=== PATIENT | female | born 1950 | race Caucasian/White ===

== ENCOUNTER 2020-01-07 15:36 | Outpatient (REF) | payer MEDICARE, SELFPAY ==
[2020-01-07 16:37] LABS: C Reactive Protein 4.24 mg/dL (< or = 0.50)
[2020-01-07 17:17] LABS: Erythrocyte Sedimentation Rate 55 MM/HR (0-20)
[2020-01-09 15:06] LABS: Prot Elec - Albumin 3.6 g/dL (3.8-4.8); Prot Elec - Alpha1 0.4 g/dL (0.2-0.3); Prot Elec - Alpha2 0.8 g/dL (0.5-0.9); Prot Elec - Beta 1 0.5 g/dL (0.4-0.6); Prot Elec - Beta 2 0.5 g/dL (0.2-0.5); Prot Elec - Gamma 1.3 g/dL (0.8-1.7)
[2020-01-10 07:22] LABS: IgA 310 mg/dL (70-320); IgG 1341 mg/dL (600-1540); IgM 169 mg/dL (50-300)
== END 2020-01-07 15:37 | disposition home or self-care (01) ==
LOC: HO.LAB 15:36
PROVIDERS: PCP Internal Medicine; Visit Provider Student in an Organized Health Care Education/Training Program
DX: M35.3 Polymyalgia rheumatica (principal); M81.0 Age-related osteoporosis without current pathological fracture; Z79.52 Long term (current) use of systemic steroids
CPT/HCPCS: 36415; 82784; 84155; 84165; 85652; 86140; 86334; 86335

== ENCOUNTER → 2020-01-10 08:13 | Outpatient (BNVA) | payer MEDICARE, SELFPAY | PROVIDERS: PCP Internal Medicine; Referring Provider Internal Medicine; Visit Provider Student in an Organized Health Care Education/Training Program | DX: M35.3 Polymyalgia rheumatica (principal); R79.82 Elevated C-reactive protein (CRP); M81.0 Age-related osteoporosis without current pathological fracture; Z79.52 Long term (current) use of systemic steroids; Z79.899 Other long term (current) drug therapy | CPT/HCPCS: 99212 ==

== ENCOUNTER 2020-02-03 15:07 | Outpatient (REF) | payer MEDICARE, SELFPAY ==
[2020-02-03 16:31] LABS: C Reactive Protein 5.56 mg/dL (< or = 0.50)
[2020-02-03 17:17] LABS: Erythrocyte Sedimentation Rate 52 MM/HR (0-20)
== END 2020-02-03 15:08 | disposition home or self-care (01) ==
LOC: HO.LAB 15:07
PROVIDERS: PCP Internal Medicine; Visit Provider Student in an Organized Health Care Education/Training Program
DX: M35.3 Polymyalgia rheumatica (principal)
CPT/HCPCS: 36415; 85652; 86140

== ENCOUNTER 2020-03-03 10:31 | Outpatient (REF) | payer MEDICARE, SELFPAY ==
[2020-03-03 12:18] LABS: C Reactive Protein 5.47 mg/dL (< or = 0.50)
[2020-03-03 13:32] LABS: Erythrocyte Sedimentation Rate 60 MM/HR (0-20)
== END 2020-03-03 10:32 | disposition home or self-care (01) ==
LOC: HO.LAB 10:31
PROVIDERS: PCP Internal Medicine; Visit Provider Student in an Organized Health Care Education/Training Program
DX: M35.3 Polymyalgia rheumatica (principal)
CPT/HCPCS: 36415; 85652; 86140

== ENCOUNTER → 2020-03-10 10:24 | Outpatient (BNVA) | payer MEDICARE, SELFPAY | PROVIDERS: PCP Internal Medicine; Referring Provider Internal Medicine; Visit Provider Student in an Organized Health Care Education/Training Program | DX: Z13.89 Encounter for screening for other disorder (principal) | CPT/HCPCS: Q3014 ==

== ENCOUNTER 2020-04-10 10:49 | Outpatient (REF) | payer MEDICARE, SELFPAY ==
[2020-04-10 11:40] LABS: MANUAL DIFF FLAG NO
[2020-04-10 11:44] LABS: Basophils Absolute Auto 0.1 X10*3/uL (0.0-0.2); Basophils Percent Auto 0.5 % (0-2); Eosinophils Absolute Auto 0.2 X10*3/uL (0.0-0.4); Eosinophils Percent Auto 1.9 % (0-4); Hematocrit 36.8 % (37-47); Hemoglobin 11.3 g/dl (12.0-16.0); Imm Gran Abs Auto 0.02 X10*3/uL (0.00-0.03); Imm Gran Pct Auto 0.2 % (0.0-0.4); Lymphocytes Absolute Auto 2.5 X10*3/uL (1.2-4.9); Lymphocytes Percent Auto 23.7 % (20-40); Mean Corpuscular HGB Conc 30.7 g/dl (31.0-35.0); Mean Corpuscular Hemoglobin 24.5 pg (27.0-33.0); Mean Corpuscular Volume 79.8 fL (80-98); Mean Platelet Volume 9.3 fL (9.4-12.3); Monocytes Absolute Auto 0.7 X10*3/uL (0.1-1.2); Monocytes Percent Auto 6.5 % (2-11); Neutrophils Percent Auto 67.2 % (45-73); Platelet Count 423 X10*3/uL (160-400); Red Blood Count 4.61 X10*6/uL (4.20-5.50); Red Cell Distribution Width 14.2 % (11.0-16.0); White Blood Count 10.4 X10*3/uL (4.8-10.8)
[2020-04-10 12:21] LABS: Erythrocyte Sedimentation Rate 58 MM/HR (0-20)
[2020-04-10 12:24] LABS: Alanine Aminotransferase 10 U/L (0-31); Albumin Level 3.9 g/dL (3.5-5.0); Alkaline Phosphatase 97 U/L (39-117); Anion Gap 14 (12-20); Aspartate Amino Transferase 11 U/L (5-31); Bilirubin Total 0.4 mg/dL (0.0-1.0); Blood Urea Nitrogen 13 mg/dL (9-16); C Reactive Protein 4.94 mg/dL (< or = 0.50); Calcium 8.8 mg/dL (8.4-10.2); Carbon Dioxide 25 mmol/L (22-29); Chloride 103 mmol/L (96-108); Estimated Glomerular Filt Rate > 60; Glucose Random 94 mg/dL (60-115); Potassium 4.2 mmol/L (3.3-5.1); Sodium 138 mmol/L (135-145); Total Protein 7.3 g/dL (6.5-8.0)
== END 2020-04-10 10:50 | disposition home or self-care (01) ==
LOC: HO.LAB 10:49
PROVIDERS: PCP Internal Medicine; Visit Provider Student in an Organized Health Care Education/Training Program
DX: M35.3 Polymyalgia rheumatica (principal)
CPT/HCPCS: 36415; 80053; 85025; 85652; 86140

== ENCOUNTER → 2020-04-30 09:40 | Outpatient (BNVA) | payer MEDICARE, SELFPAY | PROVIDERS: PCP Internal Medicine; Visit Provider Student in an Organized Health Care Education/Training Program | DX: M35.3 Polymyalgia rheumatica (principal); M81.0 Age-related osteoporosis without current pathological fracture; Z79.52 Long term (current) use of systemic steroids; R79.82 Elevated C-reactive protein (CRP) | CPT/HCPCS: 99212 ==

== ENCOUNTER → 2020-05-01 12:55 | Outpatient (REF) | payer MEDICARE, SELFPAY ==
--- NOTE | 2020-05-01 12:58 | ECG_ITS ---
Hook-up date: 2020-05-01 13:11:00 Duration: 47:59:00 Test Indications: PALPITATIONS Medications: 923896 QRS complexes 206 Ventricular ectopics which represent <1 % of total QRS comp. 4 Supraventricular ectopics which represent <1 % of total QRS comp. * Paced QRS complexs which represent % of total QRS comp. VENTRICULAR ECTOPY 206 Isolated 0 Bigeminal Cycles 0 Couplets 0 Runs 0 Beats in Runs * Beats LONGEST at * BPM at :: -- * Beats FASTEST at * BPM at :: -- SUPRAVENTRICULAR ECTOPY 1 Isolated 0 Couplets 1 Runs 3 Beats in Runs 3 Beats LONGEST at 166 BPM at 14:05:29 2020-05-02 3 Beats FASTEST at 166 BPM at 14:05:29 2020-05-02 HEART RATES 62 MIN at 22:04:35 2020-05-02 82 AVG 125 MAX at 14:36:36 2020-05-02 LONGEST RR 1.2560 secs at 10:52:13 2020-05-02 S-T LEVELS Channel 1 - 128 mm at 13:11:00 2020-05-01 - 128 mm at 13:11:00 2020-05-01 Channel 2 - 128 mm at 13:11:00 2020-05-01 - 128 mm at 13:11:00 2020-05-01 Channel 3 - 128 mm at 03:23:01 -- - 128 mm at 03:23:01 Basic rhythm Normal sinus rhythm No long pause or profound bradycardia Occasional Premature ventricular complexes Patient reported one episode of palpitations about 10 minutes after isolated PVC Referred By: Nahomy Haney Overread By: LAM ESQUIVEL MD
== END ==
LOC: HO.CARD 12:55
PROVIDERS: PCP Internal Medicine; Visit Provider Internal Medicine
DX: R00.2 Palpitations (principal)
CPT/HCPCS: 93225; 93226

== ENCOUNTER 2020-06-16 10:16 | Outpatient (REF) | payer MEDICARE, SELFPAY ==
[2020-06-16 11:29] LABS: TSH reflex Free T4 0.42 uIU/mL (0.32-4.0)
[2020-06-16 11:58] LABS: Erythrocyte Sedimentation Rate 60 MM/HR (0-20)
== END 2020-06-16 10:17 | disposition home or self-care (01) ==
LOC: HO.LAB 10:16
PROVIDERS: PCP Internal Medicine; Visit Provider Student in an Organized Health Care Education/Training Program
DX: M35.3 Polymyalgia rheumatica (principal); E03.9 Hypothyroidism, unspecified
CPT/HCPCS: 36415; 84443; 85652; 86140

== ENCOUNTER → 2020-07-01 09:29 | Outpatient (BNVA) | payer MEDICARE, SELFPAY | PROVIDERS: PCP Internal Medicine; Visit Provider Student in an Organized Health Care Education/Training Program | DX: M35.3 Polymyalgia rheumatica (principal); M81.0 Age-related osteoporosis without current pathological fracture; Z79.52 Long term (current) use of systemic steroids | CPT/HCPCS: 99212 ==

== ENCOUNTER 2020-08-19 07:31 | Outpatient (REF) | payer MEDICARE, SELFPAY ==
[2020-08-19 09:04] LABS: C Reactive Protein 4.39 mg/dL (< or = 0.50)
[2020-08-19 09:33] LABS: Erythrocyte Sedimentation Rate 54 MM/HR (0-20)
== END 2020-08-19 07:32 | disposition home or self-care (01) ==
LOC: HO.LAB 07:31
PROVIDERS: PCP Internal Medicine; Visit Provider Student in an Organized Health Care Education/Training Program
DX: M35.3 Polymyalgia rheumatica (principal); M31.6 Other giant cell arteritis; M81.0 Age-related osteoporosis without current pathological fracture; Z79.52 Long term (current) use of systemic steroids; Z79.899 Other long term (current) drug therapy
CPT/HCPCS: 36415; 85652; 86140; 99212

== ENCOUNTER 2020-08-22 07:50 | Outpatient (REF) | payer MEDICARE, SELFPAY ==
[2020-08-24 03:37] LABS: HBc Num1 0.09 S/CO (0.00-0.79); HBsAGNum1 0.14 S/CO (0.00-0.99); Hepatitis B Core Antibody Nonreactive (Nonreactive); Hepatitis B Surface Antigen Negative (Negative); ~HepC Num1 0.25 S/CO (0.00-0.79); ~Hepatitis C Antibody Nonreactive (Nonreactive)
[2020-08-24 03:50] LABS: HBS Num1 0.47 mIU/mL (0-7.99); ~Hepatitis B Surface Antibody NONREACTIVE (Nonreactive)
[2020-08-26 07:24] LABS: Hepatitis A Antibody IgM 0.23 Index (0-0.79); ~Hepatitis A Antibody IgM Nonreactive (Nonreactive)
== END 2020-08-22 07:51 | disposition home or self-care (01) ==
LOC: HO.LAB 07:50
PROVIDERS: PCP Internal Medicine; Visit Provider Student in an Organized Health Care Education/Training Program
DX: Z01.84 Encounter for antibody response examination (principal); M31.6 Other giant cell arteritis
CPT/HCPCS: 36415; 86704; 86706; 86709; 86803; 87340

== ENCOUNTER 2020-08-24 08:01 | Outpatient (REF) | payer MEDICARE, SELFPAY ==
[2020-08-26 21:12] LABS: TS Negative Control Passed; TS Panel A 0; TS Panel B 1; TS Positive Control Passed; TSpotTB Negative (SeeBelow)
== END 2020-08-24 08:02 | disposition home or self-care (01) ==
LOC: HO.LAB 08:01
PROVIDERS: PCP Internal Medicine; Visit Provider Student in an Organized Health Care Education/Training Program
DX: M31.6 Other giant cell arteritis (principal); Z11.1 Encounter for screening for respiratory tuberculosis
CPT/HCPCS: 36415; 86481

== ENCOUNTER 2020-08-28 08:32 | Outpatient (REF) | payer MEDICARE, SELFPAY ==
--- NOTE | ~2020-08-28 | US_ITS ---
EXAMINATION: US SOFT TISSUE NECK CLINICAL INFORMATION: Yuval cell arteritis. COMPARISON: None TECHNIQUE: Ultrasound of the bilateral temporal arteries performed with high- frequency lira-scale imaging and color Doppler. FINDINGS: The temporal arteries appear normal in caliber. No focal narrowing or halo sign is seen. US/US soft tiss head and/or neck IMPRESSION: Normal-appearing temporal arteries.
== END 2020-08-28 08:33 | disposition home or self-care (01) ==
LOC: HO.HMGCX 08:32
PROVIDERS: PCP Internal Medicine; Visit Provider Student in an Organized Health Care Education/Training Program
DX: M31.6 Other giant cell arteritis (principal)
CPT/HCPCS: 76536

== ENCOUNTER 2020-09-02 13:23 | Outpatient (REF) | payer MEDICARE, SELFPAY ==
[2020-09-02 14:46] LABS: C Reactive Protein 0.45 mg/dL (< or = 0.50)
[2020-09-02 15:25] LABS: Erythrocyte Sedimentation Rate 13 MM/HR (0-20)
== END 2020-09-02 13:24 | disposition home or self-care (01) ==
LOC: HO.LAB 13:23
PROVIDERS: PCP Internal Medicine; Visit Provider Student in an Organized Health Care Education/Training Program
DX: M31.6 Other giant cell arteritis (principal); M35.3 Polymyalgia rheumatica; M81.0 Age-related osteoporosis without current pathological fracture; Z79.52 Long term (current) use of systemic steroids
CPT/HCPCS: 36415; 85652; 86140; 99212

== ENCOUNTER 2020-09-16 06:32 | Outpatient (REF) | payer MEDICARE, SELFPAY ==
[2020-09-16 08:08] LABS: Erythrocyte Sedimentation Rate 7 MM/HR (0-20)
== END 2020-09-16 06:33 | disposition home or self-care (01) ==
LOC: HO.LAB 06:32
PROVIDERS: PCP Internal Medicine; Visit Provider Student in an Organized Health Care Education/Training Program
DX: M31.6 Other giant cell arteritis (principal)
CPT/HCPCS: 36415; 85652; 86140

== ENCOUNTER → 2020-09-18 11:22 | Outpatient (BNVA) | payer MEDICARE, SELFPAY | PROVIDERS: PCP Internal Medicine; Visit Provider Student in an Organized Health Care Education/Training Program | DX: M31.6 Other giant cell arteritis (principal); M35.3 Polymyalgia rheumatica; M81.0 Age-related osteoporosis without current pathological fracture; Z79.52 Long term (current) use of systemic steroids | CPT/HCPCS: 99212 ==

== ENCOUNTER 2020-10-13 14:08 | Outpatient (REF) | payer MEDICARE, SELFPAY ==
[2020-10-13 14:48] LABS: MANUAL DIFF FLAG NO
[2020-10-13 14:52] LABS: Basophils Percent Auto 0.1 % (0-2); Hemoglobin 13.1 g/dl (12.0-16.0); Imm Gran Abs Auto 0.04 X10*3/uL (0.00-0.03); Imm Gran Pct Auto 0.5 % (0.0-0.4); Lymphocytes Absolute Auto 1.8 X10*3/uL (1.2-4.9); Lymphocytes Percent Auto 22.3 % (20-40); Mean Corpuscular Hemoglobin 25.8 pg (27.0-33.0); Mean Corpuscular Volume 80.7 fL (80-98); Mean Platelet Volume 9.7 fL (9.4-12.3); Monocytes Absolute Auto 0.2 X10*3/uL (0.1-1.2); Monocytes Percent Auto 2.4 % (2-11); Neutrophils Percent Auto 74.7 % (45-73); Platelet Count 240 X10*3/uL (160-400); Red Blood Count 5.08 X10*6/uL (4.20-5.50); Red Cell Distribution Width 19.8 % (11.0-16.0); White Blood Count 8.1 X10*3/uL (4.8-10.8)
[2020-10-13 15:35] LABS: Erythrocyte Sedimentation Rate 2 MM/HR (0-20)
[2020-10-13 15:46] LABS: Alanine Aminotransferase 18 U/L (0-31); Alkaline Phosphatase 59 U/L (39-117); Anion Gap 15 (12-20); Aspartate Amino Transferase 14 U/L (5-31); Bilirubin Total 0.3 mg/dL (0.0-1.0); Blood Urea Nitrogen 15 mg/dL (9-16); C Reactive Protein 0.05 mg/dL (< or = 0.50); Calcium 9.1 mg/dL (8.4-10.2); Carbon Dioxide 26 mmol/L (22-29); Chloride 99 mmol/L (96-108); Cholesterol 289 mg/dL; Estimated Glomerular Filt Rate > 60; Glucose Random 107 mg/dL (60-115); HDL Cholesterol 136 mg/dL; LDL Cholesterol Calculated 134 mg/dl; Potassium 4.7 mmol/L (3.3-5.1); Sodium 135 mmol/L (135-145); Total Protein 6.6 g/dL (6.5-8.0); Triglycerides 96 mg/dL
[2020-10-13 17:44] LABS: Reflex LDLD? No
== END 2020-10-13 14:09 | disposition home or self-care (01) ==
LOC: HO.LAB 14:08
PROVIDERS: PCP Internal Medicine; Visit Provider Student in an Organized Health Care Education/Training Program
DX: M31.6 Other giant cell arteritis (principal)
CPT/HCPCS: 36415; 80053; 80061; 85025; 85652; 86140

== ENCOUNTER → 2020-10-15 15:46 | Outpatient (BNVA) | payer MEDICARE, SELFPAY | PROVIDERS: PCP Internal Medicine; Visit Provider Student in an Organized Health Care Education/Training Program | DX: M31.6 Other giant cell arteritis (principal); M35.3 Polymyalgia rheumatica; M81.0 Age-related osteoporosis without current pathological fracture; Z79.52 Long term (current) use of systemic steroids | CPT/HCPCS: 99212 ==

== ENCOUNTER 2021-02-16 12:43 | Outpatient (REF) | payer MEDICARE, SELFPAY ==
--- NOTE | ~2021-02-16 | MM_ITS ---
EXAMINATION: BONE DENSITOMETRY CLINICAL INDICATION: Age-related osteoporosis without current pathological fracture. COMPARISON: Previous BD dated 02/21/2019 and baseline BD dated 07/20/2006. TECHNIQUE: Using a zanda DXA System (software version: 13.1) manufactured by [employer], dual-energy x-ray absorptiometry was performed of the lumbar spine and left hip. The images are of good technical quality. Summary results are attached. FINDINGS: AP SPINE L1-L4: Current: BMD 0.744 g/cm2, Z-score -2.0, T-score -3.6, osteoporosis, 1.9% increase from previous, 17.1% decrease from baseline (<5% change is not significant). Prior: BMD 0.730 g/cm2. Baseline: BMD 0.898 g/cm2. LEFT FEMUR, NECK: Current: BMD 0.633 g/cm2, Z-score -1.2, T-score -2.9, osteoporosis. Prior: BMD 0.642 g/cm2. Baseline: BMD 0.795 g/cm2. LEFT FEMUR, TOTAL: Current: BMD 0.641 g/cm2, Z-score -1.4, T-score -2.9, osteoporosis, 0.9% increase from previous, 9.1% decrease from baseline (<5% change is not significant). Prior: BMD 0.635 g/cm2. Baseline: BMD 0.705 g/cm2. IDENTIFIED RISK FACTORS: Osteoporosis, family history (parental hip fracture), history of fracture (adult). Early menopause, secondary osteoporosis, glucocorticoids (chronic), hysterectomy, bilateral oophorectomy. HISTORY OF FRACTURE: Femur/hip. MEDICATIONS: Calcium supplements or multivitamin, vitamin D. MM/XR DEXA axial skeleton IMPRESSION: 1. DIAGNOSIS: Severe osteoporosis based on the lowest T-score value of -3.6 in the lumbar spine fracture history applying World Health Organization criteria. 2. 10-YEAR FRACTURE RISK PREDICTION, FRAX: Major osteoporotic fracture (clinical spine, forearm, hip or shoulder) 62.8%. Hip fracture 44.7%. 3. Treatment Recommendations: NOF guidelines recommend consideration for treatment in postmenopausal women and men age 50 and older presenting with the following: -A hip or vertebral (clinical or morphometric) fracture. -T-score less than or equal to -2.5 at the femoral neck or spine after appropriate evaluation to exclude secondary causes. -Low bone mass at the hip or spine and a 10-year fracture probability by FRAX of greater than or equal to 3% for hip fracture or greater than or equal to 20% for major osteoporotic fracture based on the [place] adapted WHO algorithm. 4. Other Recommendations: All treatment decisions require clinical judgment and consideration of individual patient factors, including patient preferences, comorbidities, previous drug use, risk factors not captured in the FRAX model (e.g. frailty, falls, vitamin D deficiency, increased bone turnover, interval significant decline in bone density) and possible under or overestimation of fracture risk by FRAX. Additional medical evaluation for secondary cause of low bone mineral density may be appropriate. FUTURE SCAN RECOMMENDATION: People with diagnosed cases of osteoporosis or at high risk for fracture should have regular bone mineral density tests. For patients eligible for Medicare, routine testing is allowed once every 2 years. The testing frequency can be increased to one year for patients who have rapidly progressing disease, those who are receiving or discontinuing medical therapy to restore bone mass, or have additional risk factors.
--- NOTE | ~2021-02-16 | MM_ITS ---
EXAMINATION: MM SCREENING DIGITAL BREAST TOMOSYNTHESIS, BILATERAL CLINICAL INFORMATION: Screening. Asymptomatic. The lifetime risk of breast cancer based on the Tyrer-Cuzick Model is 3.7%. COMPARISON: Mammography: 02/21/2019 and studies dating back to 12/20/2011. TECHNIQUE: Digital breast tomosynthesis is performed in both the craniocaudal and mediolateral oblique views along with computer-aided detection (CAD). Synthesized 2D images are generated from the tomosynthesis. Additional right side exaggerated craniocaudal view performed. FINDINGS: There are scattered areas of fibroglandular density (ACR BI-RADS breast composition Category b). There is a stable parenchymal pattern within the left breast with no new abnormal dominant mass or suspicious grouping of microcalcifications. Within the upper outer aspect of the right breast approximately 4 cm from the nipple there is a region of ill-defined density with question of calcifications for which spot magnification films are recommended in craniocaudal and 90 degree mediolateral views. MM/MM tomosynthesis screening BI IMPRESSION: Right breast asymmetric density upper outer aspect for further evaluation as described. ASSESSMENT: BI-RADS BI-RADS 0. RECOMMENDATION: 1. Additional views of the right breast. 2. Targeted ultrasound if warranted after review of the additional views. 3. Radiology department staff will contact the patient for additional imaging. This patient's information was entered into a reminder system with a target due date for their next mammogram.
== END 2021-02-16 12:44 | disposition home or self-care (01) ==
LOC: HO.MAMMO 12:43
PROVIDERS: Visit Provider Internal Medicine
DX: Z12.31 Encounter for screening mammogram for malignant neoplasm of breast (principal); Z13.820 Encounter for screening for osteoporosis; M81.0 Age-related osteoporosis without current pathological fracture; Z78.0 Asymptomatic menopausal state; Z79.899 Other long term (current) drug therapy
CPT/HCPCS: 77063; 77067; 77080

== ENCOUNTER 2021-02-19 07:57 | Outpatient (REF) | payer MEDICARE, SELFPAY ==
--- NOTE | ~2021-02-19 | MM_ITS ---
EXAMINATION: MM DIAGNOSTIC DIGITAL BREAST TOMOSYNTHESIS, RIGHT TARGETED RIGHT BREAST ULTRASOUND CLINICAL INFORMATION: Asymmetric density with indistinct margins and question microcalcifications. COMPARISON: Mammography: 02/16/2021 and studies dating back to 01/06/2014 TECHNIQUE: Digital breast tomosynthesis is performed. 2D images are generated from the tomosynthesis. The following views are obtained: Spot magnification views in craniocaudal and 90 degree mediolateral views. TARGETED RIGHT BREAST ULTRASOUND: FINDINGS: The breasts are heterogeneously dense, which may obscure small masses (ACR BI-RADS breast composition Category c). The spot magnification views compress out the dense tissue to some degree but with some residual dense parenchyma, but with similar appearance to previous studies. No associated microcalcifications are appreciated. Targeted ultrasound evaluation to the upper outer aspect of the right breast did not demonstrate any abnormal cystic or solid masses. No region of abnormal distal sound shadowing appreciated. Results are discussed with the patient at time of visit. MM/MM tomosynthesis added views R IMPRESSION: No specific mammographic or ultrasound findings to suggest malignancy. ASSESSMENT: BI-RADS 1: Negative RECOMMENDATION: Routine annual mammography screening. This patient's information was entered into a reminder system with a target due date for their next mammogram.
--- NOTE | ~2021-02-19 | US_ITS ---
EXAMINATION: US DIAGNOSTIC ULTRASOUND BREAST, RIGHT CLINICAL INFORMATION: Dense tissue with question irregular margins upper outer aspect of the right breast.. COMPARISON: Mammography of same day and studies dating back to January 06, 2014. TECHNIQUE: Ultrasound of the breast is performed with real-time lira scale imaging and color Doppler. FINDINGS: Targeted ultrasound evaluation to the upper outer aspect of the right breast did not demonstrate any abnormal cystic or solid masses. No region of abnormal distal sound shadowing appreciated. No edematous change appreciated. Results are discussed with the patient at time of visit. US/US breast RT limited IMPRESSION: No specific mammographic or ultrasound findings to suggest malignancy. ASSESSMENT: BI-RADS 1: Negative RECOMMENDATION: Routine annual mammography screening.
== END 2021-02-19 07:58 | disposition home or self-care (01) ==
LOC: HO.MAMMO 07:57
PROVIDERS: PCP Internal Medicine; Visit Provider Internal Medicine
DX: R92.2 Inconclusive mammogram (principal)
CPT/HCPCS: 76642; 77061; 77065

== ENCOUNTER 2021-11-30 10:28 | Emergency (ER) | payer MEDICARE, SELFPAY ==
--- NOTE | ~2021-11-30 | XR_ITS ---
EXAMINATION: XR ABDOMEN KUB CLINICAL INDICATION: Constipated COMPARISON: 12/29/2017 TECHNIQUE: AP view of the abdomen. FINDINGS: Bowel gas pattern is nonobstructive. There is limited assessment for free air with supine positioning. Moderate amount of stool is present predominantly in the rectum and right colon. Calcifications in the pelvis are statistically favored to represent phleboliths. There are degenerative changes in the lower lumbar spine. Included portions of the lung bases are grossly well-aerated. XR/XR KUB IMPRESSION: Moderate stool in the rectum and right colon. Nonobstructive bowel gas pattern.
[2021-11-30 10:34] VITALS: BP 176/85; PULSE 97; RESP 18; TEMP 36; O2SAT 98; BMI 24.2
[2021-11-30 11:02] LABS: MANUAL DIFF FLAG NO
[2021-11-30 11:05] LABS: Basophils Percent Auto 0.5 % (0-2); Eosinophils Absolute Auto 0.1 X10*3/uL (0.0-0.4); Eosinophils Percent Auto 1.2 % (0-4); Hematocrit 41.4 % (37.0-47.0); Hemoglobin 14.1 g/dl (12.0-16.0); Imm Gran Abs Auto 0.02 X10*3/uL (0.00-0.03); Imm Gran Pct Auto 0.3 % (0.0-0.4); Lymphocytes Absolute Auto 2.6 X10*3/uL (1.2-4.9); Mean Corpuscular HGB Conc 34.1 g/dl (31.0-35.0); Mean Corpuscular Hemoglobin 28.5 pg (27.0-33.0); Mean Corpuscular Volume 83.8 fL (80.0-98.0); Mean Platelet Volume 10.2 fL (9.4-12.3); Monocytes Absolute Auto 0.3 X10*3/uL (0.1-1.2); Monocytes Percent Auto 4.7 % (2-11); Neutrophils Absolute Auto 4.2 x10*3/uL (2.0-8.3); Neutrophils Percent Auto 57.3 % (45-73); Platelet Count 373 X10*3/uL (160-400); Red Blood Count 4.94 X10*6/uL (4.20-5.50); Red Cell Distribution Width 12.8 % (11.0-16.0); White Blood Count 7.3 X10*3/uL (4.8-10.8)
[2021-11-30 11:20] LABS: Anion Gap 21 (12-20); Blood Urea Nitrogen 13 mg/dL (9-16); Calcium 9.6 mg/dL (8.4-10.2); Carbon Dioxide 21 mmol/L (22-29); Chloride 100 mmol/L (96-108); Creatinine Clr Calc Pharmacy 61.7; Estimated Glomerular Filt Rate > 60; Glucose Random 130 mg/dL (60-115); Potassium 4.2 mmol/L (3.3-5.1); Sodium 138 mmol/L (135-145)
--- NOTE | 2021-11-30 12:50 | ED_ITS ---
HPI - General Adult General Chief complaint: General Medical Stated complaint: possibly impacted? Time Seen by Provider: 11/30/21 12:50 Source: patient Mode of arrival: ambulatory Limitations: no limitations History of Present Illness HPI narrative: patient with 3 days of constipation now feeling like she is impacted. This has happened to her before. Onset (ago): day(s) Severity: moderate Pain Consistency: constant Relieving factors: none Related Data Home Medications Medication Instructions Recorded Confirmed levothyroxine 100 mcg tablet 100 mcg PO DAILY 01/07/20 01/06/21 magnesium 250 mg tablet 250 mg PO DAILY 01/10/20 01/06/21 cholecalciferol (vitamin D3) 50 50 mcg PO DAILY 02/03/20 01/06/21 mcg (2,000 unit) tablet (Vitamin D3) calcium carbonate 650 mg calcium 650 mg PO DAILY 03/10/20 01/06/21 (1,625 mg) tablet cyclosporine 0.05 % eye drops in a 1 drp ophthalmic (eye) BID 01/22/21 dropperette Previous Rx's Medication Instructions Recorded tocilizumab 162 mg/0.9 mL 162 mg (0.9 mL) subcut QWEEK #3.6 10/28/20 subcutaneous pen injector (Actemra mL ACTPen) clindamycin HCl 300 mg capsule 300 mg PO TID 7 days #21 caps 01/22/21 doxycycline hyclate 100 mg tablet 100 mg PO BID 5 days #10 tabs 01/29/21 ipratropium bromide 42 mcg (0.06 2 spray intranasal TID PRN 03/25/21 %) nasal spray shortness of breath 90 days #7 supp stair lift #1 ea 06/21/21 psyllium husk 3.4 gram/5.4 gram 1 tsp PO BID #660 grams 11/30/21 oral powder (Metamucil) Allergies Allergy/AdvReac Type Severity Reaction Status Date / Time Motrin Allergy Intermediate hives Verified 01/22/21 14:37 adhesive [ADHESIVE BANDAGE] Allergy Unknown RASH,ERYTHE Verified 01/22/21 14:37 MA,BRUISING cephalexin [Keflex] Allergy Unknown Rash Verified 01/22/21 14:37 denosumab [From PROLIA] Allergy Unknown SEVERE Verified 01/22/21 14:37 MUSCLE PAIN epinephrine [EPINEPHRINE] Allergy Unknown POUNDING Verified 01/22/21 14:37 HEART/FEELS LIKE PASSING OUT Novocain Allergy Unknown heart Verified 01/22/21 14:37 racing Penicillins [PENICILLINS] Allergy Unknown RASH Verified 01/22/21 14:37 sulfamethoxazole Allergy Unknown RASH Verified 01/22/21 14:37 [From SEPTRA DS] tetracycline [TETRACYCLINE] Allergy Unknown DIFFICULTY Verified 01/22/21 14:37 SWALLOWING, trouble swallowing, trouble swallowing trimethoprim [From SEPTRA DS] Allergy Unknown RASH Verified 01/22/21 14:37 Review of Systems Constitutional: Constitutional: Reports no additional constitutional complaints Eyes: Eyes: Reports no additional eye complaints ENT: Denies dizziness Cardiovascular: Cardiovascular: Reports no additional cardiovascular complaints Respiratory: Respiratory: Reports as per HPI Gastrointestinal: Gastrointestinal: Reports no additional gastrointestinal complaints Genitourinary: Genitourinary: Reports no additional female genitourinary complaints Musculoskeletal: Musculoskeletal: Reports no additional musculoskeletal complaints Integumentary/Breasts: Skin/Breast: Denies rash Neurologic: Reports system reviewed and no additional complaints, except as documented, Denies dizziness and Denies Sensory deficit (Neuro) Psychiatric: Psychiatric: Denies anxiety [facility] Past Medical History Medical History Ascending aortic aneurysm Collapsed lung H/O one miscarriage Ermias's disease Hypothyroidism half-way systemic steroid user Lymphedema Osteoporosis Palpitations Paralysis, diaphragm Polymyalgia rheumatica Rhinitis Sarcoidosis of lung Surgical History Fatty tumor H/O breast surgery H/O dilation and curettage H/O: hysterectomy History of bronchoscopy History of neck surgery History of open reduction and internal fixation (ORIF) procedure History of total abdominal hysterectomy Hx of thyroidectomy S/P plication of diaphragm Status post spinal disc removal Family History Family History Father Emphysema lung Mother Aneurysm Emphysema lung Sister Chronic mental illness Celiac disease Breast cancer Family/Other Chronic mental illness Dementia Sister Pancreatic cancer Social History Social History Housing: House Alcohol intake: never Patient Tobacco Use Status: Never used Tobacco e-Cigarette/Vaping Use: Never Used Second Hand Smoke Exposure: No Advance Directives: No Advance Directives Information Provided: No service: No Current occupational status: retired Physical Exam ED Vital Signs: Vital Signs - 24 hr 11/30/21 10:34 11/30/21 14:21 Temperature 96.8 F 98.7 F Pulse Rate 97 98 Respiratory Rate 18 14 Blood Pressure 176/85 H 155/80 H Pulse Oximetry 98 99 Oxygen Delivery Method Room Air Room Air BMI result Body Mass Index 24.2 Const General: healthy appearing Nutritional Appearance: average body habitus Orientation/consciousness: oriented to person and patient oriented x3 Limitations: no limitations HENMT Head: Yes normal to inspection Ears: external ears normal General nose exam: Normal external nose present Mouth: Normal oral and palatal mucosa present and oropharynx normal Throat: Yes posterior oropharynx normal Eyes General: appearance normal, both eyes and all related structures Neck Neck: Yes normal visual inspection Chest Chest palpation & inspection: normal inspection of the chest Resp Auscultation: clear to auscultation bilaterally Cardio Jugular venous distension: no JVD Rate: regular rate Rhythm: regular rhythm Heart sounds: S1 normal heart sound present and S2 normal heart sound present GI Inspection: Yes normal to inspection Palpation (GI): Soft to palpation, nontender and No hepatosplenomegaly present Auscultation: normal bowel sounds Other: large fecal impaction some hard some soft Skin General skin exam: no rashes or lesions noted Neuro General: oriented to person and patient oriented x3 Cranial nerves: Yes CN's II-XII intact bilaterally Motor exam (neuro): 5/5 motor strength present throughout Sensory Exam: No Sensory deficit (Neuro) Extrem General: Yes normal to inspection Psych Appearance: grossly normal Course Reevaluation(s) Reevaluation #1: After enema, patient had large BM. will dc on metamucil Time: 14:42 Procedures Procedure Narrative Procedure Narrative: manual fecal disimpaction performed Medical Decision Making Lab Data Result diagrams: 11/30/21 10:44 11/30/21 10:44 Labs: Lab Results 11/30/21 11/30/21 Range/Units 10:44 10:44 WBC 7.3 (4.8-10.8) X10*3/uL RBC 4.94 (4.20-5.50) X10*6/uL Hgb 14.1 (12.0-16.0) g/dl Hct 41.4 (37.0-47.0) % MCV 83.8 (80.0-98.0) fL MCH 28.5 (27.0-33.0) pg MCHC 34.1 (31.0-35.0) g/dl RDW 12.8 (11.0-16.0) % Plt Count 373 (160-400) X10*3/uL MPV 10.2 (9.4-12.3) fL Immature Gran % (Auto) 0.3 (0.0-0.4) % Neut % (Auto) 57.3 (45-73) % Lymph % (Auto) 36.0 (20-40) % [place] % (Auto) 4.7 (2-11) % Eos % (Auto) 1.2 (0-4) % Baso % (Auto) 0.5 (0-2) % Lymph # (Auto) 2.6 (1.2-4.9) X10*3/uL [place] # (Auto) 0.3 (0.1-1.2) X10*3/uL Eos # (Auto) 0.1 (0.0-0.4) X10*3/uL Baso # (Auto) 0.0 (0.0-0.2) X10*3/uL Abs Immat Gran (auto) 0.02 (0.00-0.03) X10*3/uL Absolute Neuts (auto) 4.2 (2.0-8.3) x10*3/uL Absolute Nucleated RBC 0.000 (0.0-0.012) X10*3/uL Nucleated RBC % (auto) 0.0 (0.0-0.2) /100WBC Sodium 138 (135-145) mmol/L Potassium 4.2 (3.3-5.1) mmol/L Chloride 100 (96-108) mmol/L Carbon Dioxide 21 L (22-29) mmol/L Anion Gap 21 H (12-20) BUN 13 (9-16) mg/dL Creatinine 0.76 (0.5-1.4) mg/dL Estim Creat Clear Calc 61.7 Estimated GFR > 60 Random Glucose 130 H (60-115) mg/dL Calcium 9.6 (8.4-10.2) mg/dL Imaging Data Abdominal x-ray: Radiologist's impression: FINDINGS: Bowel gas pattern is nonobstructive. There is limited assessment for free air with supine positioning. Moderate amount of stool is present predominantly in the rectum and right colon. Calcifications in the pelvis are statistically favored to represent phleboliths. There are degenerative changes in the lower lumbar spine. Included portions of the lung bases are grossly well-aerated. XR/XR KUB IMPRESSION: Moderate stool in the rectum and right colon. Nonobstructive bowel gas pattern. ? Discharge Plan Discharge Clinical Impression: Constipation, Fecal impaction in rectum Patient Disposition: Home, Self-Care Instructions: Constipation (ED), Fecal Impaction (ED) Prescriptions: New Metamucil 3.4 gram/5.4 gram powder 1 tsp PO BID Qty: 660 0RF Rx Instructions: mix into at least 4 oz water or juice before administering No Action Actemra ACTPen 162 mg/0.9 mL pen injector 162 mg subcut QWEEK Qty: 3.6 3RF doxycycline hyclate 100 mg tablet 100 mg PO BID 5 Days Qty: 10 0RF ipratropium bromide 42 mcg (0.06 %) spray,non-aerosol 2 spray intranasal TID PRN (Reason: shortness of breath) 90 Days Qty: 7 3RF (DME) stair lift ref [phone] See Rx Instructions .Route .MEDSUPPLY Qty: 1 0RF Rx Instructions: As directed cholecalciferol (vitamin D3) [Vitamin D3] 50 mcg (2,000 unit) Tablet 50 mcg PO DAILY levothyroxine 100 mcg tablet 100 mcg PO DAILY cyclosporine 0.05 % dropperette 1 drp ophthalmic (eye) BID clindamycin HCl 300 mg capsule 300 mg PO TID 7 Days Qty: 21 0RF Rx Instructions: take with the 150 mg capsule to equal 450 mg t.i.d. calcium carbonate 650 mg calcium (1,625 mg) tablet 650 mg PO DAILY magnesium 250 mg tablet 250 mg PO DAILY Referrals: Nahomy Ortiz MD [Primary Care Provider] - 1 week
[2021-11-30] MEDS: Mineral OiL enema 133 ML ENEMA PR (13:47)
[2021-11-30 14:21] VITALS: BP 155/80; PULSE 98; RESP 14; TEMP 37.1; O2SAT 99
--- NOTE | 2021-11-30 14:52 | PC.NURSE ---
Mineral oil enema administered. PT tolerated well with positive results.
== END 2021-11-30 15:26 | disposition home or self-care (01) ==
PROVIDERS: Emergency Provider Emergency Medicine; PCP Internal Medicine
DX: K59.00 Constipation, unspecified (principal); Z79.899 Other long term (current) drug therapy
CPT/HCPCS: 36415; 74018; 80048; 85025; 99283; 99284

== ENCOUNTER 2022-03-16 08:08 | Outpatient (REF) | payer MEDICARE, SELFPAY ==
[2022-03-16 08:21] LABS: MANUAL DIFF FLAG NO
[2022-03-16 08:37] LABS: Basophils Absolute Auto 0.1 X10*3/uL (0.0-0.2); Basophils Percent Auto 0.7 % (0-2); Eosinophils Absolute Auto 0.2 X10*3/uL (0.0-0.4); Eosinophils Percent Auto 2.8 % (0-4); Hemoglobin 12.9 g/dl (12.0-16.0); Imm Gran Abs Auto 0.01 X10*3/uL (0.00-0.03); Imm Gran Pct Auto 0.1 % (0.0-0.4); Lymphocytes Absolute Auto 2.5 X10*3/uL (1.2-4.9); Lymphocytes Percent Auto 36.6 % (20-40); Mean Corpuscular HGB Conc 32.3 g/dl (31.0-35.0); Mean Corpuscular Hemoglobin 26.4 pg (27.0-33.0); Mean Platelet Volume 9.9 fL (9.4-12.3); Monocytes Absolute Auto 0.4 X10*3/uL (0.1-1.2); Monocytes Percent Auto 5.2 % (2-11); Neutrophils Absolute Auto 3.7 x10*3/uL (2.0-8.3); Neutrophils Percent Auto 54.6 % (45-73); Platelet Count 320 X10*3/uL (160-400); Red Blood Count 4.88 X10*6/uL (4.20-5.50); Red Cell Distribution Width 14.1 % (11.0-16.0); White Blood Count 6.7 X10*3/uL (4.8-10.8)
[2022-03-16 08:45] LABS: Estimated Average Glucose 108 mg/dL; Hemoglobin A1c % 5.4 %
[2022-03-16 09:05] LABS: Alanine Aminotransferase 12 U/L (0-31); Albumin Level 4.1 g/dL (3.5-5.0); Alkaline Phosphatase 144 U/L (39-117); Anion Gap 9 (12-20); Aspartate Amino Transferase 15 U/L (5-31); Bilirubin Total 0.4 mg/dL (0.0-1.0); Blood Urea Nitrogen 11 mg/dL (9-16); C Reactive Protein 1.14 mg/dL (< or = 0.50); Calcium 9.2 mg/dL (8.4-10.2); Carbon Dioxide 29 mmol/L (22-29); Chloride 103 mmol/L (96-108); Cholesterol 208 mg/dL; Estimated Glomerular Filt Rate > 60; Glucose Random 97 mg/dL (60-115); HDL Cholesterol 72 mg/dL; LDL Cholesterol Calculated 118 mg/dl; Sodium 137 mmol/L (135-145); Total Protein 6.9 g/dL (6.5-8.0); Triglycerides 93 mg/dL
[2022-03-16 09:26] LABS: Free T4 (Free Thyroxine) 1.23 ng/dL (0.71-1.85); Vitamin D 25-OH Total 29.4 ng/mL (>30)
[2022-03-16 09:36] LABS: Folate 8.2 ng/mL (> or = 4.0); Vitamin B12 318 pg/mL (200-900)
[2022-03-16 09:49] LABS: Erythrocyte Sedimentation Rate 18 MM/HR (0-20)
== END 2022-03-16 08:09 | disposition home or self-care (01) ==
LOC: HO.LAB 08:08
PROVIDERS: PCP Internal Medicine; Visit Provider Internal Medicine
DX: E03.8 Other specified hypothyroidism (principal); E06.3 Autoimmune thyroiditis; M35.3 Polymyalgia rheumatica; E78.00 Pure hypercholesterolemia, unspecified
CPT/HCPCS: 36415; 80053; 80061; 82306; 82607; 82746; 83036; 84439; 84443; 85025; 85652; 86140

== ENCOUNTER 2022-03-25 14:07 | Outpatient (REF) | payer MEDICARE, SELFPAY ==
--- NOTE | ~2022-03-25 | MM_ITS ---
EXAMINATION: MM SCREENING DIGITAL BREAST TOMOSYNTHESIS, BILATERAL CLINICAL INFORMATION: Screening. Asymptomatic. Family history breast cancer, sister. The lifetime risk of breast cancer based on the Tyrer-Cuzick Model is 3%. COMPARISON: Mammography: 02/19/2021, 02/16/2021, 02/21/2019, 02/12/2018; ultrasound right breast 02/19/2021 TECHNIQUE: Digital breast tomosynthesis is performed in both the craniocaudal and mediolateral oblique views along with computer-aided detection (CAD). Synthesized 2D images are generated from the tomosynthesis. FINDINGS: There are scattered areas of fibroglandular density (ACR BI-RADS breast composition Category b). There are no significant masses, abnormal calcifications, or other abnormalities. Parenchymal pattern is similar to prior exams and there is no developing density or interval architectural abnormality. The axilla and skin contours are unremarkable. MM/MM tomosynthesis screening BI IMPRESSION: No mammographic evidence of malignancy. ASSESSMENT: BI-RADS 1: Negative RECOMMENDATION: Routine annual mammography screening. This patient's information was entered into a reminder system with a target due date for their next mammogram.
== END 2022-03-25 14:08 | disposition home or self-care (01) ==
LOC: HO.MAMMO 14:07
PROVIDERS: PCP Internal Medicine; Visit Provider Internal Medicine
DX: Z12.31 Encounter for screening mammogram for malignant neoplasm of breast (principal)
CPT/HCPCS: 77063; 77067

== ENCOUNTER 2022-10-01 07:23 | Outpatient (REF) | payer MEDICARE, SELFPAY ==
[2022-10-01 07:44] LABS: MANUAL DIFF FLAG NO
[2022-10-01 08:21] LABS: Basophils Percent Auto 0.7 % (0-2); Eosinophils Absolute Auto 0.2 X10*3/uL (0.0-0.4); Eosinophils Percent Auto 3.5 % (0-4); Hematocrit 38.3 % (37.0-47.0); Hemoglobin 12.3 g/dl (12.0-16.0); Imm Gran Abs Auto 0.01 X10*3/uL (0.00-0.03); Imm Gran Pct Auto 0.2 % (0.0-0.4); Lymphocytes Absolute Auto 2.3 X10*3/uL (1.2-4.9); Lymphocytes Percent Auto 38.3 % (20-40); Mean Corpuscular HGB Conc 32.1 g/dl (31.0-35.0); Mean Corpuscular Hemoglobin 26.4 pg (27.0-33.0); Mean Corpuscular Volume 82.2 fL (80.0-98.0); Monocytes Absolute Auto 0.4 X10*3/uL (0.1-1.2); Neutrophils Absolute Auto 3.1 x10*3/uL (2.0-8.3); Neutrophils Percent Auto 51.3 % (45-73); Platelet Count 313 X10*3/uL (160-400); Red Blood Count 4.66 X10*6/uL (4.20-5.50); Red Cell Distribution Width 13.7 % (11.0-16.0)
[2022-10-01 09:09] LABS: Alanine Aminotransferase 11 U/L (0-31); Alkaline Phosphatase 140 U/L (39-117); Anion Gap 11 (12-20); Aspartate Amino Transferase 14 U/L (5-31); Bilirubin Total 0.2 mg/dL (0.0-1.0); Blood Urea Nitrogen 7 mg/dL (9-16); Carbon Dioxide 27 mmol/L (22-29); Chloride 104 mmol/L (96-108); Estimated Glomerular Filt Rate > 60; Glucose Random 94 mg/dL (60-115); Potassium 4.1 mmol/L (3.3-5.1); Sodium 138 mmol/L (135-145); Total Protein 7.1 g/dL (6.5-8.0)
[2022-10-01 09:12] LABS: Thyroid Stimulating Hormone 1.78 uIU/mL (0.32-4.0)
== END 2022-10-01 07:24 | disposition home or self-care (01) ==
LOC: HO.LAB 07:23
PROVIDERS: PCP Internal Medicine; Visit Provider Internal Medicine
DX: I10 Essential (primary) hypertension (principal)
CPT/HCPCS: 36415; 80053; 84439; 84443; 85025

== ENCOUNTER 2022-10-19 13:17 | Outpatient (AMB) | payer MEDICARE, SELFPAY ==
[2022-10-19 13:20] VITALS: BP 136/70; PULSE 71; O2SAT 97; BMI 24.2
--- NOTE | 2022-10-19 13:20 | MHC.PC.OV ---
Vital Signs 10/19/22 13:20 Height 5 ft 6 in Weight 150 lb BMI 24.2 BP 136/70 Blood Pressure Location Lt brachial Position Sitting Pulse 71 Pulse Source Pulse Oximeter Pulse Oximetry (%) 97 Oxygen Delivery Method Room Air Intake Visit Reasons: Hypertension Allergies ibuprofen [From Motrin] Allergy (Intermediate, Verified 10/19/22 13:22) Hives adhesive [ADHESIVE BANDAGE] Allergy (Unknown, Verified 10/19/22 13:22) RASH,ERYTHEMA,BRUISING cephalexin [Keflex] Allergy (Unknown, Verified 10/19/22 13:22) Rash denosumab [From PROLIA] Allergy (Unknown, Verified 10/19/22 13:22) SEVERE MUSCLE PAIN epinephrine [EPINEPHRINE] Allergy (Unknown, Verified 10/19/22 13:22) POUNDING HEART/FEELS LIKE PASSING OUT Penicillins [PENICILLINS] Allergy (Unknown, Verified 10/19/22 13:22) RASH procaine [From Novocain] Allergy (Unknown, Verified 10/19/22 13:22) Heart racing sulfamethoxazole [From SEPTRA DS] Allergy (Unknown, Verified 10/19/22 13:22) RASH tetracycline [TETRACYCLINE] Allergy (Unknown, Verified 10/19/22 13:22) DIFFICULTY SWALLOWING, trouble swallowing, trouble swallowing trimethoprim [From SEPTRA DS] Allergy (Unknown, Verified 10/19/22 13:22) RASH hydrochlorothiazide Adverse Reaction (Intermediate, Verified 10/19/22 13:22) Headache lisinopril Adverse Reaction (Intermediate, Verified 10/19/22 13:22) Cough Tobacco use date assessed: 08/29/22 Fall risk assessment: No Falls in past year Last assessed Fall Risk: 10/19/22 Dental Screening Dental Screen Date: 10/19/22 Did you have a dental visit in the last 12 months?: Yes Did you have a dental problem in the last 6 months where you did not have access to dental care?: No Was dental information given to patient?: Patient has dentist HPI Hypertension HPI Details 72-year-old female with a history of hypertension hypothyroidism last seen in August 2022. Patient also has a history of ascending aorta aneurysm which is being monitored by Dr. Chun. feels tired - feeling sleepy. complains of feeling tired all the time for a long time - breathing has been a problem- sicne paralized diaphragm and sarcoidBP has been high still. witnessed apnea, sleepy takes a nap, after a meal sleepy. hard time paying attention, falls asleep on watching tv complains of having foul-smelling urine and feels like not emptying the bladder. 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 Lymphedema Osteoporosis Palpitations Paralysis, diaphragm Polymyalgia rheumatica Rhinitis Sarcoidosis of lung Surgical History Fatty tumor H/O breast surgery H/O dilation and curettage H/O: hysterectomy History of bronchoscopy History of neck surgery History of open reduction and internal fixation (ORIF) procedure History of total abdominal hysterectomy Hx of thyroidectomy S/P plication of diaphragm Status post spinal disc removal Family History Father Emphysema lung Mother Aneurysm Emphysema lung Sister Chronic mental illness Celiac disease Breast cancer Family/Other Chronic mental illness Dementia Sister Pancreatic cancer Social History Housing: House Alcohol intake: never Patient Tobacco Use Status: Never used Tobacco e-Cigarette/Vaping Use: Never Used Second Hand Smoke Exposure: No service: No Current occupational status: retired Cognitive needs: No Hearing needs: No Vision needs: Yes Questionnaire PHQ-9 Over the last 2 weeks, how often have you been bothered by any of the following problems? 1. Little interest or pleasure in doing things: not at all 2. Feeling down, depressed, or hopeless: not at all 3. Trouble falling or staying asleep, or sleeping too much: not at all 4. Feeling tired or having little energy: not at all 5. Poor appetite or overeating: not at all 6. Feeling bad about yourself - or that you are a failure or have let yourself or your family down: not at all 7. Trouble concentrating on things, such as reading the newspaper or watching television: not at all 8. Moving or speaking so slowly that other people could have noticed. Or the opposite - being so fidgety or restless that you have been moving around a lot more than usual: not at all 9. Thoughts that you would be better off or of hurting yourself in some way: not at all Total score: 0 Depression Screening Interpretation: Negative 83302 - PHQ-9 Billing: Patient declined-do not bill Source: Developed by Drs. Abran Goldsmith, Karin Landa, Mark Gilliam and colleagues, with an educational marlene from [employer]. Thrive Questionnaire Date Thrive assessed: 05/27/22 AUDIT C Alcohol Use Questionnaire (AUDIT-C) 1. How often do you have a drink containing alcohol?: Never 3. How often do you have six or more drinks on one occasion?: Never Total Score: 0 LEMUEL-7 AMB Questionnaire LEMUEL-7 Date LEMUEL - 7 assessed: 06/27/22 Source: Developed by Drs. Abran Goldsmith, Karin Landa, Mark Gilliam and colleagues, with an educational marlene from [employer]. Physical exam (Primary Care) Vital Signs: Last Vital Signs Pulse 71 10/19/22 13:20 BP 136/70 10/19/22 13:20 Pulse Ox 97 10/19/22 13:20 Oxygen Delivery Method Room Air 10/19/22 13:20 BMI result Body Mass Index 24.2 Tobacco/Smoking Status: Tobacco use Status Tobacco use date assessed 08/29/22 10/19/22 13:24 Patient Tobacco Use Status Never used Tobacco 10/19/22 13:24 e-Cigarette/Vaping Use Never Used 10/19/22 13:24 PHQ-9: PHQ-9 Score PHQ-9: Total score 0 10/19/22 13:24 Depression Screening Interpretation: Negative Thrive Assessment: Date of Thrive Assessment Date Thrive assessed 05/27/22 10/19/22 13:24 Const General: alert; No acute distress Eyes Conjunctivae: conjunctivae normal Resp Auscultation: clear to auscultation bilaterally Cardio Rate: regular rate Rhythm: regular rhythm GI Inspection: Yes normal to inspection Extrem General: Yes normal to inspection and No edema Assessment and Plan Assessment & Plan (1) Hypertension: Comment: Lisinopril taken off due to cough Code(s): I10 - Essential (primary) hypertension Plan: Continue with blood pressure medication. Decrease salt intake and exercise patient is on losartan 100 mg once a day (2) Hypothyroidism: Comment: March 2022 Code(s): E03.9 - Hypothyroidism, unspecified Qualifiers: Hypothyroidism type: due to Ermias's thyroiditis Qualified Code(s): E03.8 - Other specified hypothyroidism; E06.3 - Autoimmune thyroiditis Plan: Continue with the thyroid medication September 2022 last blood work (3) Osteoporosis: Comment: February 2021 Code(s): M81.0 - Age-related osteoporosis without current pathological fracture Qualifiers: Osteoporosis type: age-related Presence of current pathological fracture: without current pathological fracture Qualified Code(s): M81.0 - Age-related osteoporosis without current pathological fracture Plan: Bone density is up-to-date will request in February 2023 (4) Ascending aortic aneurysm: Comment: 2020, Dr. Chun Code(s): I71.2 - Thoracic aortic aneurysm, without rupture Plan: Patient is being monitored by Dr. Chun (5) Hypersomnia: Code(s): G47.10 - Hypersomnia, unspecified (6) Urinary retention: Code(s): R33.9 - Retention of urine, unspecified Orders: Orders RT home sleep study Today G47.10 - Hypersomnia, unspecified US bladder Today R33.9 - Retention of urine, unspecified AMB Urinalysis Automated Today R33.9 - Retention of urine, unspecified, Z13.9 - Encounter for screening, unspecified Medications: New amlodipine 2.5 mg PO DAILY 30 tabs 4RF I10 - Essential (primary) hypertension Coding Level of Care Code Est Pt Level 4 (44718) Diagnoses Hypertension I10 Hypothyroidism E03.8; E06.3 Hypothyroidism type: due to Ermias's thyroiditis Osteoporosis M81.0 Osteoporosis type: age-related Presence of current pathological fracture: without current pathological fracture Ascending aortic aneurysm I71.2 Hypersomnia G47.10 Urinary retention R33.9
== END 2022-10-19 14:04 | disposition home or self-care (01) ==
PROVIDERS: PCP Internal Medicine; Visit Provider Internal Medicine
DX: I10 Essential (primary) hypertension (principal); E03.8 Other specified hypothyroidism; E06.3 Autoimmune thyroiditis; R33.9 Retention of urine, unspecified; M81.0 Age-related osteoporosis without current pathological fracture; I71.20 Thoracic aortic aneurysm, without rupture, unspecified; G47.10 Hypersomnia, unspecified
CPT/HCPCS: 81003; 99214

== ENCOUNTER 2022-10-24 14:06 | Outpatient (REF) | payer MEDICARE, SELFPAY ==
--- NOTE | ~2022-10-24 | US_ITS ---
EXAMINATION: US PELVIS LIMITED (BLADDER) CLINICAL INFORMATION: Retention of urine, unspecified. COMPARISON: X-ray [facility] 11/30/2021. CTA abdomen and pelvis 12/29/2017. MRI abdomen 09/21/2017. TECHNIQUE: Real-time imaging of the bladder. FINDINGS: BLADDER: Well distended and normal. Bilateral ureteral jets are demonstrated. Prevoid bladder volume is 302 mL. Postvoid bladder volume is 4 mL. US/US bladder IMPRESSION: Unremarkable examination.
== END 2022-10-24 14:07 | disposition home or self-care (01) ==
LOC: HO.US 14:06
PROVIDERS: Visit Provider Internal Medicine
DX: R33.9 Retention of urine, unspecified (principal)
CPT/HCPCS: 76857

== ENCOUNTER 2022-11-10 17:12 | Emergency (ER) | payer MEDICARE, SELFPAY ==
--- NOTE | ~2022-11-10 | CT_ITS ---
EXAMINATION: CT LUMBAR SPINE WITHOUT CONTRAST CLINICAL INFORMATION: Pain. Midline tenderness. COMPARISON: CT images of abdomen pelvis from 12/29/2017 TECHNIQUE: Multidetector CT imaging examination of the lumbar spine is performed. The axial images and multiplanar reformatted images are reviewed. This CT examination was performed using dose optimization techniques as appropriate, variously including the following: *Automated exposure control *Adjustment of mA and/or kV according to patient size (this includes techniques or standardized protocols for targeted exams where dose is matched to indication/reason for exam; i.e. extremities or head) *Use of iterative reconstruction technique DLP; 384 mGy-cm FINDINGS: The bone density is diffusely decreased in this patient with history of osteoporosis. The lumbar vertebra have well preserved height and alignment. No vertebral compression fractures. The posterior elements are intact. There are no pars interarticularis defects. No focal lytic or osteoblastic lesion. T12-L1, L1-L2 and L2-L3 are unremarkable. There is mild facet arthropathy at L3-L4, L4-L5 and L5-S1. At L3-L4, there is mild disc bulge with mild encroachment on the inferior aspect of the inferior aspect of the left L3 nerve root foramen. At L4-L5, there is moderate degenerative loss of the disc height, vertebral traction osteophyte formation, disc bulge with mild encroachment upon the inferior aspect of the left L4 nerve root foramen. The disc-osteophyte complex appears to contact but not overtly impinge upon the exiting right L4 nerve root. The L4-L5 disc causes mild effacement of the ventral surface of the thecal sac. No significant spinal canal stenosis. There are no significant findings at L5-S1. There is no spinal canal or neural foraminal stenosis at this level. The sacrum and sacroiliac joints are intact. There is atherosclerotic calcification of the abdominal aorta without aneurysm. No retroperitoneal hematoma. The visualized portions of the kidneys are normal. CT/CT lumbar spine wo IV con IMPRESSION: * No acute imaging abnormalities in the lumbar spine compared to 12/29/2017. * Bone density is diffusely decreased in this patient with history of osteoporosis. No vertebral compression fractures. * There is moderate disc degenerative change at L4-L5. The disc-osteophyte complex at this level appears to chronically contact the undersurface of the exiting right L4 nerve root. However, there is no overt neural impingement.
--- NOTE | 2022-11-10 17:18 | ED.BACK ---
HPI - Back Pain/Injury General Chief Complaint: Back Pain/Injury Stated Complaint: ON AND OFF BACK SPASMS Time Seen by Provider: 11/10/22 17:18 Source: patient and EMS Mode of arrival: EMS Limitations: no limitations History of Present Illness HPI Narrative: Patient is a 72 old female who presents to the emergency department via EMS for evaluation of right lower back pain reported as muscle spasms. Reports pain present x5 days after she was lifting laundry, since yesterday evening she has been experiencing severe spasms. Today she states that the pain was so severe she was having trouble ambulating around her home. She is tempted to call her primary care doctor's office but was unable to make contact with her doctor. She reports a history of right lower back pain in a similar region but has been pain free for approximately 6 years, had a prior extensive 20 year history of pain secondary to facet joint. She trialed acetaminophen at home in addition to oxycodone that she had remaining from a prior surgery without any relief. Denies recent fevers, chills, burning with micturition, urinary frequency/urgency/hesitancy, bladder or bowel dysfunction, numbness or tingling of the perineum or bilateral legs. Denies any recent surgical procedures, any known immune compromising conditions, personal history of cancer, or IV drug usage. MD elicited complaint: back pain Related Data Home Medications Medication Instructions Recorded Confirmed amlodipine 2.5 mg tablet 2.5 mg PO DAILY 11/11/22 11/11/22 levothyroxine 88 mcg tablet 88 mcg PO DAILY 11/11/22 11/11/22 losartan 100 mg tablet 100 mg PO DAILY 11/11/22 11/11/22 sennosides 8.6 mg-docusate sodium 2 tab PO BEDTIME 11/11/22 11/11/22 50 mg tablet (Stimulant Laxative Plus) Previous Rx's Medication Instructions Recorded stair lift #1 ea 06/21/21 morphine 15 mg immediate release 15 mg PO Q6H PRN pain 5 days #10 11/11/22 tablet tabs prednisone 20 mg tablet 40 mg PO DAILY 5 days #10 tabs 11/11/22 Allergies Allergy/AdvReac Type Severity Reaction Status Date / Time ibuprofen [From Motrin] Allergy Intermediate Hives Verified 10/19/22 13:22 adhesive [ADHESIVE BANDAGE] Allergy Unknown RASH,ERYTHE Verified 10/19/22 13:22 MA,BRUISING cephalexin [Keflex] Allergy Unknown Rash Verified 10/19/22 13:22 denosumab [From PROLIA] Allergy Unknown SEVERE Verified 10/19/22 13:22 MUSCLE PAIN epinephrine [EPINEPHRINE] Allergy Unknown POUNDING Verified 10/19/22 13:22 HEART/FEELS LIKE PASSING OUT Penicillins [PENICILLINS] Allergy Unknown RASH Verified 10/19/22 13:22 procaine [From Novocain] Allergy Unknown Heart Verified 10/19/22 13:22 racing sulfamethoxazole Allergy Unknown RASH Verified 10/19/22 13:22 [From SEPTRA DS] tetracycline [TETRACYCLINE] Allergy Unknown DIFFICULTY Verified 10/19/22 13:22 SWALLOWING, trouble swallowing, trouble swallowing trimethoprim [From SEPTRA DS] Allergy Unknown RASH Verified 10/19/22 13:22 hydrochlorothiazide AdvReac Intermediate Headache Verified 10/19/22 13:22 lisinopril AdvReac Intermediate Cough Verified 10/19/22 13:22 Review of Systems Review of Systems: Constitutional: No weight loss, fever, chills, weakness or fatigue. HEENT: No visual loss, blurred vision, double vision. No hearing loss, sneezing, congestion, runny nose or sore throat. Skin: No rash or itching. Cardiovascular: No chest pain, chest pressure or chest discomfort. No palpitations or pedal edema. Respiratory: No shortness of breath, cough or sputum production. Gastrointestinal: No anorexia, nausea, vomiting or diarrhea. No abdominal pain or blood in stool. Genitourinary: No burning micturition. No urinary frequency or incontinence. Neurologic: No headache, dizziness, syncope, unilateral weakness, ataxia, numbness or tingling in the extremities. No change in bowel or bladder control. Musculoskeletal: + Back pain as noted in HPI. No joint pain or stiffness. Hematologic: No bleeding or bruising. Lymphatics: No enlarged lymph nodes. Psychiatric:No depression or anxiety. Endocrine: No reports of sweating. No cold or heat intolerance. No polyuria or polydipsia. Yes all other systems are reviewed and are negative PMFSH Past Medical History Attestation statement: The following information was validated with the patient. Source: old records reviewed Medical History Ascending aortic aneurysm Collapsed lung H/O one miscarriage Ermias's disease Hypothyroidism intermediate systemic steroid user Lymphedema Osteoporosis Palpitations Paralysis, diaphragm Polymyalgia rheumatica Rhinitis Sarcoidosis of lung Surgical History Fatty tumor H/O breast surgery H/O dilation and curettage H/O: hysterectomy History of bronchoscopy History of neck surgery History of open reduction and internal fixation (ORIF) procedure History of total abdominal hysterectomy Hx of thyroidectomy S/P plication of diaphragm Status post spinal disc removal Family History Family History Father Emphysema lung Mother Aneurysm Emphysema lung Sister Chronic mental illness Celiac disease Breast cancer Family/Other Chronic mental illness Dementia Sister Pancreatic cancer Social History Social History Housing: House Alcohol intake: former Patient Tobacco Use Status: Never used Tobacco Smoked in Last 30 Days: No e-Cigarette/Vaping Use: Never Used Second Hand Smoke Exposure: No Use of substances other than those prescribed or required for medical reasons: No Advance Directives: No Advance Directives Information Provided: No service: No Current occupational status: retired Cognitive needs: No Hearing needs: No Vision needs: Yes Physical Exam Vital Signs: Vital Signs: Last Vital Signs Temp 98.6 F 11/11/22 12:00 Pulse 78 11/11/22 12:00 Resp 19 11/11/22 12:00 BP 155/70 H 11/11/22 12:00 Pulse Ox 98 11/11/22 12:00 O2 Del Method Room Air 11/11/22 12:00 BMI result Body Mass Index 23.7 Appearance: Alert.?Oriented to person, place and time. No acute distress.?Normal affect. Eyes: Pupils equal, round and reactive to light.? ENT: Pharynx normal.?? Neck: Normal inspection.? Neck supple.?? CVS: Heart sounds normal. Normal heart rate and rhythm.? Pulses normal; bilateral radial pulses 2+, bilateral posterior tibial/dorsalis pedis pulses 2+.? Respiratory: No respiratory distress.? Lung sounds clear to auscultation bilaterally?? Abdomen: Soft and non-tender. Normoactive bowel sounds. No pulsatile mass.?? Skin: Skin warm and dry.? Normal skin color.? Normal skin turgor.?? Extremities: No lower extremity edema.? No calf ttp? Back: + moderate right SI joint and paraspinal muscular tenderness from lumbar region to coccyx. No CVA tenderness. No midline spinal tenderness, step-off's, or deformity. Full ROM intact in bilateral lower extremities. Straight leg test positive on right; Straight leg test negative on left. No rashes, lesions, areas of induration or fluctuance, or signs of infection noted., Neuro: Moves all extremities spontaneously. 5/5 strength in hip extension/flexion, abduction, adduction. Sensation to light touch intact bilaterally. Patellar and Achilles reflex 2+ bilaterally.No focal neuro deficits. Course Reevaluation(s) Reevaluation #1: CT reveals no acute abnormality, no evidence of compression fracture, moderate degenerative disc disease at L4-L5 with involvement of the right L4 nerve root but no overt impingement. CBC and CMP are overall unremarkable. Pain at this time most consistent with SI joint versus muscular spasm. Cannot completely exclude disc herniation at this time. No evidence of spinal fracture, unlikely spinal infection, epidural abscess. No indication for emergent MRI. Physical examination is not consistent with concern for cauda equina syndrome. She has had no improvement from the tizanidine. She declines trial in any additional opiate type medications. She reports that her primary care provider has sent a prescription for cyclobenzaprine to her pharmacy, she would like to trial this at this time. I offered her to trial diazepam as well however she declines. Time: 20:42 Reevaluation #2: Cyclobenzaprine without any improvement in her pain. Patient endorsing severe pain with any minimal movement, agreeable to morphine at this time Time: 00:20 Reevaluation #3: Patient with minimal improvement after morphine. She is found to be resting with her eyes closed upon entering the room. She expresses concern about potentially being discharged home at this hour after receiving medications, and states her would be unable to come and pick her up at this time. We discussed potential evaluation with physical therapy in the morning as she still feels that she will have significant difficulty ambulating. Patient will be placed in physician observation, case Management/physical therapy evaluation in the morning for safe disposition. Time: 01:04 Additional Reevaluation(s): Pending PT and Case Management, uneventful night. Home med reconciliation done. Will continue to monitor. To remain in observation Spoke to hospitalist patient is not meeting criteria for inpatient hospital admission. Medications Administered Generic Name Dose Route Start Last Admin Trade Name Frewesley PRN Reason Stop Dose Admin Amlodipine Besylate 2.5 mg 11/11/22 09:00 11/11/22 08:41 Amlodipine Besylate 2.5 Mg Tablet PO 2.5 mg DAILY CLEMENTINE Administration Protocol Levothyroxine Sodium 88 mcg 11/11/22 07:00 11/11/22 07:24 Levothyroxine Sodium 88 Mcg Tablet PO 88 mcg DAILY@0700 CLEMENTINE Administration Lisinopril 5 mg 11/11/22 09:00 11/11/22 08:41 Lisinopril 5 Mg Tablet PO Not Given DAILY CLEMENTINE Protocol Losartan Potassium 100 mg 11/11/22 09:00 11/11/22 08:41 Losartan Potassium 50 Mg Tablet PO 100 mg DAILY CLEMENTINE Administration Protocol Discontinued Medications Generic Name Dose Route Start Last Admin Trade Name Dhavalq PRN Reason Stop Dose Admin Cyclobenzaprine HCl 5 mg 11/10/22 20:48 11/10/22 21:06 Cyclobenzaprine Hcl 5 Mg Tablet PO 11/10/22 20:49 5 mg ONCE ONE Administration Hydromorphone HCl 1 mg 11/11/22 04:45 11/11/22 04:51 Hydromorphone Hcl 1 Mg/Ml Syringe IVPUSH 11/11/22 04:46 1 mg ONCE ONE Administration Protocol Morphine Sulfate 4 mg 11/11/22 00:19 11/11/22 00:32 Morphine Sulfate 4 Mg/Ml Cartridge IVPUSH 11/11/22 00:20 4 mg ONCE ONE Administration Protocol Morphine Sulfate 15 mg 11/11/22 13:14 11/11/22 13:40 Morphine Sulfate Immed Release 15 Mg Tablet PO 11/11/22 13:15 15 mg ONCE ONE Administration Ondansetron HCl 4 mg 11/11/22 00:20 11/11/22 00:32 Ondansetron Hcl 4 Mg/2 Ml Vial IVPUSH 11/11/22 00:21 4 mg ONCE ONE Administration Oxycodone HCl 10 mg 11/11/22 03:44 11/11/22 03:53 Oxycodone Hcl Immed Release 5 Mg Tablet PO 11/11/22 03:45 10 mg ONCE ONE Administration Tizanidine HCl 4 mg 11/10/22 17:37 11/10/22 18:01 Tizanidine Hcl 4 Mg Tablet PO 11/10/22 17:38 4 mg ONCE ONE Administration Medical Decision Making Medical Decision Making [facility] Narrative: Patient is a 72 old female with past medical history of ascending aortic aneurysm, Ermias's disease, hypothyroidism, lymphedema, osteoporosis, paralysis of the diaphragm, polymyalgia rheumatica, sarcoidosis of the lung who presents emergency department for evaluation of back pain. She received 75 mcg of fentanyl via EMS prior to arrival without any improvement, upon my examination with very minimal movement she reports severe spasming and begins crying out in pain. Will obtain CBC, CMP, urinalysis, CT of the lumbar spine. Low suspicion for pyelonephritis/hydronephrosis/obstructive calculi. Will trial Tizanidine Differential Diagnosis Differential Diagnoses: The differential diagnosis associated with the presentation includes (Muscular spasm, lumbar radiculopathy, disc herniation) Lab Data [facility] Lab Attestation statement: I reviewed the patient's lab results. (See course narrative for further detail) 11/10/22 18:27 11/10/22 18:27 Labs: Lab Results 11/10/22 11/10/22 11/10/22 Range/Units 18:27 18:27 22:22 WBC 6.4 (4.8-10.8) X10*3/uL RBC 4.93 (4.20-5.50) X10*6/uL Hgb 13.2 (12.0-16.0) g/dl Hct 39.1 (37.0-47.0) % MCV 79.3 L (80.0-98.0) fL MCH 26.8 L (27.0-33.0) pg MCHC 33.8 (31.0-35.0) g/dl RDW 13.8 (11.0-16.0) % Plt Count 332 (160-400) X10*3/uL MPV 9.8 (9.4-12.3) fL Immature Gran % (Auto) 0.2 (0.0-0.4) % Neut % (Auto) 62.0 (45-73) % Lymph % (Auto) 30.1 (20-40) % [place] % (Auto) 6.2 (2-11) % Eos % (Auto) 0.9 (0-4) % Baso % (Auto) 0.6 (0-2) % Lymph # (Auto) 1.9 (1.2-4.9) X10*3/uL [place] # (Auto) 0.4 (0.1-1.2) X10*3/uL Eos # (Auto) 0.1 (0.0-0.4) X10*3/uL Baso # (Auto) 0.0 (0.0-0.2) X10*3/uL Abs Immat Gran (auto) 0.01 (0.00-0.03) X10*3/uL Absolute Neuts (auto) 4.0 (2.0-8.3) x10*3/uL Absolute Nucleated RBC 0.000 (0.0-0.012) X10*3/uL Nucleated RBC % (auto) 0.0 (0.0-0.2) /100WBC Sodium 134 L (135-145) mmol/L Potassium 3.8 (3.3-5.1) mmol/L Chloride 104 (96-108) mmol/L Carbon Dioxide 18 L (22-29) mmol/L Anion Gap 16 (12-20) BUN 12 (9-16) mg/dL Creatinine 0.68 (0.5-1.4) mg/dL Estim Creat Clear Calc 67.9 Estimated GFR > 60 Random Glucose 112 (60-115) mg/dL Calcium 9.9 D (8.4-10.2) mg/dL Total Bilirubin 0.2 (0.0-1.0) mg/dL AST 13 (5-31) U/L ALT 8 (0-31) U/L Alkaline Phosphatase 132 H (39-117) U/L Total Protein 7.3 (6.5-8.0) g/dL Albumin 4.1 (3.5-5.0) g/dL Urine Color Yellow Urine Appearance Error Urine pH 8.0 (5.0-9.0) Ur Specific Wykoff 1.010 (1.005-1.025) Urine Protein Negative (Neg-Trace) mg/dL Urine Glucose (UA) Negative (Negative) mg/dL Urine Ketones Negative (Negative) mg/dL Urine Blood Negative (Negative) Urine Nitrite Negative (Negative) Ur Leukocyte Esterase Negative (Negative) Radiology Impression Discussion of test interpretation with radiology: I have reviewed the radiologist's reading. Radiologist Impression: CT/CT lumbar spine wo IV con IMPRESSION: *? No acute imaging abnormalities in the lumbar spine compared to 12/29/2017. *? Bone density is diffusely decreased in this patient with history of osteoporosis. No vertebral compression fractures. *? There is moderate disc degenerative change at L4-L5. The disc-osteophyte complex at this level appears to chronically contact the undersurface of the exiting right L4 nerve root. However, there is no overt neural impingement.? External Record Review External record reviewed: Outpatient record (Primary care record 10/19/2022) Critical Care Time Critical Care Time Critical Care Time: No Discharge Plan Discharge Clinical Impression: Lumbar back pain Patient Disposition: Home, Self-Care Instructions: Back Pain (ED) Additional Instructions: Take your medications as prescribed. If you were prescribed antibiotics today, it is important that you take your medication to their entirety, do not skip any doses, do not finish them early. Follow-up with your primary care provider this week. Return to the emergency department with new or worsening symptoms. Such as fevers, chills, chest pain, shortness of breath, nausea, vomiting, dizziness, headache, vision changes, lethargy In case of emergency call 911 A narcotic has been sent to your pharmacy please take this as prescribed. Do not take more than the prescribed dose. Narcotic medications can cause addiction. Please do not mix them with alcohol. Do not take them while driving or operating machinery. Do not take them with any other narcotics. Do not share them with friends or family. They can cause constipation. Take them only for severe pain. Prescriptions: New prednisone 20 mg tablet 40 mg PO DAILY 5 Days Qty: 10 0RF morphine 15 mg tablet 15 mg PO Q6H PRN (Reason: pain) 5 Days Qty: 10 0RF Rx Instructions: Partial Fill upon patient request. No Action (DME) stair lift ref [phone] See Rx Instructions .Route .MEDSUPPLY Qty: 1 0RF Rx Instructions: As directed sennosides-docusate sodium [Stimulant Laxative Plus] 8.6-50 mg tablet 2 tab PO BEDTIME amlodipine 2.5 mg tablet 2.5 mg PO DAILY levothyroxine 88 mcg tablet 88 mcg PO DAILY losartan 100 mg tablet 100 mg PO DAILY Referrals: [facility] [Outside] Stand Alone Forms: Work/School Release
[2022-11-10 17:21] VITALS: BP 165/89; PULSE 80; RESP 20; TEMP 36.5; O2SAT 100; O2SAT 99; BMI 23.7
[2022-11-10] MEDS: TiZANidine HCL 4 MG TABLET PO (18:01)
[2022-11-10 18:30] LABS: MANUAL DIFF FLAG NO
[2022-11-10 18:51] LABS: Basophils Percent Auto 0.6 % (0-2); Eosinophils Absolute Auto 0.1 X10*3/uL (0.0-0.4); Eosinophils Percent Auto 0.9 % (0-4); Hematocrit 39.1 % (37.0-47.0); Hemoglobin 13.2 g/dl (12.0-16.0); Imm Gran Abs Auto 0.01 X10*3/uL (0.00-0.03); Imm Gran Pct Auto 0.2 % (0.0-0.4); Lymphocytes Absolute Auto 1.9 X10*3/uL (1.2-4.9); Lymphocytes Percent Auto 30.1 % (20-40); Mean Corpuscular HGB Conc 33.8 g/dl (31.0-35.0); Mean Corpuscular Hemoglobin 26.8 pg (27.0-33.0); Mean Corpuscular Volume 79.3 fL (80.0-98.0); Mean Platelet Volume 9.8 fL (9.4-12.3); Monocytes Absolute Auto 0.4 X10*3/uL (0.1-1.2); Monocytes Percent Auto 6.2 % (2-11); Platelet Count 332 X10*3/uL (160-400); Red Blood Count 4.93 X10*6/uL (4.20-5.50); Red Cell Distribution Width 13.8 % (11.0-16.0); White Blood Count 6.4 X10*3/uL (4.8-10.8)
[2022-11-10 19:03] LABS: Alanine Aminotransferase 8 U/L (0-31); Albumin Level 4.1 g/dL (3.5-5.0); Alkaline Phosphatase 132 U/L (39-117); Anion Gap 16 (12-20); Aspartate Amino Transferase 13 U/L (5-31); Bilirubin Total 0.2 mg/dL (0.0-1.0); Blood Urea Nitrogen 12 mg/dL (9-16); Calcium 9.9 mg/dL (8.4-10.2); Carbon Dioxide 18 mmol/L (22-29); Chloride 104 mmol/L (96-108); Creatinine Clr Calc Pharmacy 67.9; Estimated Glomerular Filt Rate > 60; Glucose Random 112 mg/dL (60-115); Potassium 3.8 mmol/L (3.3-5.1); Sodium 134 mmol/L (135-145); Total Protein 7.3 g/dL (6.5-8.0)
[2022-11-10 19:14] VITALS: BP 130/68; PULSE 91; RESP 17; O2SAT 99
[2022-11-10] MEDS: Cyclobenzaprine HCl 5 MG TABLET PO (21:06)
[2022-11-10 21:41] VITALS: BP 175/73; PULSE 68; RESP 16; O2SAT 99
[2022-11-10 22:46] LABS: Appearance Urine Error; Color Urine Yellow; Glucose Urine UA Negative (Negative); Leukocyte Esterase Urine Negative (Negative); Nitrite Urine Negative (Negative); Urine Blood Negative (Negative); Urine Ketones Negative (Negative); Urine Protein Negative (Neg-Trace)
[2022-11-11] VITALS (10 sets, daily range): BP systolic 122–155; BP diastolic 60–92; PULSE 63–78; RESP 14–19; TEMP 36.6–37; O2SAT 92–98
[2022-11-11] MEDS: ondansetron HCL 4 MG/2 ML VIAL IVPUSH (00:32)
[2022-11-11] MEDS: Morphine Sulfate 4 MG/ML CARTRIDGE IVPUSH (00:32)
[2022-11-11] MEDS: oxyCODONE HCl Immed Release 5 MG TABLET 10 MG PO (03:53)
[2022-11-11] MEDS: HYDROmorphone HCl 1 MG/ML SYRINGE IVPUSH (04:51)
[2022-11-11] MEDS: Levothyroxine Sodium 88 MCG TABLET PO (07:24)
--- NOTE | 2022-11-11 07:29 | PC.NURSE ---
pt reports minimal pain if they are lying still but are unable to move without pain. Levothyroxine given per MAR before breakfast. PT/CM eval pending. will ctm
[2022-11-11] MEDS: Losartan Potassium 50 MG TABLET 100 MG PO (08:41)
[2022-11-11] MEDS: amLODIPine Besylate 2.5 MG TABLET PO (08:41)
--- NOTE | 2022-11-11 12:16 | MHC.CM.ED ---
Received case management consult overnight. Physical therapy eval completed. Acute rehab is recommended. Referral made to all 3 acute rehab facilities. No beds offered at this time. Met with patient in regards to discharge planning. Patient lives with her , Dean, ambulates independently and had no services prior to coming to the ER. PCP verified. Patient has a HCP at home and will try to obtain a copy. Patient has received 6 Pfizer vaccines. Patient aware acute rehab is not able to offer a bed. Patient is not interested in privately paying for short term rehab at a senior care facility. [facility] offered for senior care and physical therapy. Patient agreeable to referral being broadcasted. [facility] is not able to start service before Monday. [facility] can start sooner. Patient accepts [facility]. Patient is concerned about going home today because she feels she needs more pain meds. However, patient does not like the way the Dilaudid made her feel this morning. Cindy HESTER aware and asked to see patient. Patient's will transport her home when medically stable. Continue to monitor for d/c needs.
[2022-11-11] MEDS: Morphine Sulfate Immed Release 15 MG TABLET PO (13:40)
--- NOTE | 2022-11-11 20:00 | MHC.CM.ED ---
CM met with patient and her , Dean, at the request of Tyler HESTER. PT has recommended Acute reha, but all 3 facilities have denied admission. Pt does not have funds to pay [facility] for STR. They understand the 3 midnight rule that Medicare has, do not agree with it, but understand that patient cannot go to rehab if insurance will not pay for it. Referral to [facility] was placed by previous CM and they are agreeable to that. Pt and were notified that Tyler KACIE did try to have her admitted to observation for intractable pain, but the hospitalist declined to admit. CM recommended warm showers, taking prescribed pain medication and participating in home PT. Explained if that doesn't seem to be working, they should contact her PCP for referral to out patient PT. Also suggested they consider care information associate and could speak with their provider about that option. Patient and were agreeable to discharge home at this time.
== END 2022-11-11 17:39 | disposition home or self-care (01) ==
PROVIDERS: Nurse Practitioner Family; Emergency Provider Emergency Medicine; PCP Internal Medicine
DX: M54.50 Low back pain, unspecified (principal); I10 Essential (primary) hypertension; Z79.52 Long term (current) use of systemic steroids; Z79.899 Other long term (current) drug therapy
CPT/HCPCS: 36415; 72131; 80053; 81003; 85025; 96374; 96375; 97161; 99285; J1170; J2270; J2405

== ENCOUNTER 2022-11-13 10:37 | Emergency (ER) | payer MEDICARE, SELFPAY ==
--- NOTE | ~2022-11-13 | XR_ITS ---
EXAMINATION: XR ABDOMEN KUB CLINICAL INDICATION: Evaluate stool burden. COMPARISON: CT dated 12/29/2009 TECHNIQUE: AP view of the abdomen. FINDINGS: Moderate to large volume of stool is present throughout the colon, most notably at the rectum. Stomach, small bowel, and colon are nondilated. There is elevation of the left hemidiaphragm which is chronic, unchanged as compared to prior. No gross evidence of intracranial free fluid or free air. Bones are osteopenic. No acute osseous findings. Degenerative spondylosis in the lower lumbar spine. XR/XR KUB IMPRESSION: Moderate to large volume of stool in the colon, most notably at the rectum. No evidence of obstruction.
--- NOTE | 2022-11-13 10:58 | ED.BACK ---
HPI - Back Pain/Injury General Chief Complaint: General Medical Stated Complaint: back pain/constipated - was here monday Time Seen by Provider: 11/13/22 11:53 Source: patient Mode of arrival: ambulatory Limitations: no limitations History of Present Illness HPI Narrative: Patient with a history of constipation but has back pain. She recently had dilaudid and flexeril but now has fecal impaction. Pertinent past history: other (prior rectal pain and constipation) Timing: constant Severity: moderate Related Data Home Medications Medication Instructions Recorded Confirmed amlodipine 2.5 mg tablet 2.5 mg PO DAILY 11/11/22 11/11/22 levothyroxine 88 mcg tablet 88 mcg PO DAILY 11/11/22 11/11/22 losartan 100 mg tablet 100 mg PO DAILY 11/11/22 11/11/22 sennosides 8.6 mg-docusate sodium 2 tab PO BEDTIME 11/11/22 11/11/22 50 mg tablet (Stimulant Laxative Plus) Previous Rx's Medication Instructions Recorded stair lift #1 ea 06/21/21 morphine 15 mg immediate release 15 mg PO Q6H PRN pain 5 days #10 11/11/22 tablet tabs prednisone 20 mg tablet 40 mg PO DAILY 5 days #10 tabs 11/11/22 Allergies Allergy/AdvReac Type Severity Reaction Status Date / Time ibuprofen [From Motrin] Allergy Intermediate Hives Verified 11/13/22 11:01 adhesive [ADHESIVE BANDAGE] Allergy Unknown RASH,ERYTHE Verified 11/13/22 11:01 MA,BRUISING cephalexin [Keflex] Allergy Unknown Rash Verified 11/13/22 11:01 denosumab [From PROLIA] Allergy Unknown SEVERE Verified 11/13/22 11:01 MUSCLE PAIN epinephrine [EPINEPHRINE] Allergy Unknown POUNDING Verified 11/13/22 11:01 HEART/FEELS LIKE PASSING OUT Penicillins [PENICILLINS] Allergy Unknown RASH Verified 11/13/22 11:01 procaine [From Novocain] Allergy Unknown Heart Verified 11/13/22 11:01 racing sulfamethoxazole Allergy Unknown RASH Verified 11/13/22 11:01 [From SEPTRA DS] tetracycline [TETRACYCLINE] Allergy Unknown DIFFICULTY Verified 11/13/22 11:01 SWALLOWING, trouble swallowing, trouble swallowing trimethoprim [From SEPTRA DS] Allergy Unknown RASH Verified 11/13/22 11:01 hydrochlorothiazide AdvReac Intermediate Headache Verified 10/19/22 13:22 lisinopril AdvReac Intermediate Cough Verified 10/19/22 13:22 Review of Systems Review of Systems: Yes all other systems are reviewed and are negative Neurologic: Denies Sensory deficit (Neuro) [facility] Past Medical History Medical History Ascending aortic aneurysm Collapsed lung H/O one miscarriage Ermias's disease Hypothyroidism halfway systemic steroid user Lymphedema Osteoporosis Palpitations Paralysis, diaphragm Polymyalgia rheumatica Rhinitis Sarcoidosis of lung Surgical History Fatty tumor H/O breast surgery H/O dilation and curettage H/O: hysterectomy History of bronchoscopy History of neck surgery History of open reduction and internal fixation (ORIF) procedure History of total abdominal hysterectomy Hx of thyroidectomy S/P plication of diaphragm Status post spinal disc removal Family History Family History Father Emphysema lung Mother Aneurysm Emphysema lung Sister Chronic mental illness Celiac disease Breast cancer Family/Other Chronic mental illness Dementia Sister Pancreatic cancer Social History Social History Housing: House Alcohol intake: former Patient Tobacco Use Status: Never used Tobacco e-Cigarette/Vaping Use: Never Used Second Hand Smoke Exposure: No Advance Directives: Yes Advance Directives on File: Yes Advance Directives Date on File: 09/10/22 service: No Current occupational status: retired Cognitive needs: No Hearing needs: No Vision needs: Yes Physical Exam Vital Signs: Vital Signs: Last Vital Signs Temp 97 F 11/13/22 11:02 Pulse 103 H 11/13/22 11:02 Resp 18 11/13/22 11:02 BP 77/44 L 11/13/22 11:02 Pulse Ox 98 11/13/22 11:02 O2 Del Method Room Air 11/13/22 11:02 BMI result Body Mass Index 23.7 Const: Other: female appearing uncomfortable Nutritional Appearance: average body habitus Orientation/consciousness: oriented to person and patient oriented x3 Limitations: no limitations HEENT: Head: Yes normal to inspection Ears: external ears normal General nose exam: Normal external nose present Mouth: Normal oral and palatal mucosa present and oropharynx normal Throat: Yes posterior oropharynx normal Eyes: General: appearance normal, both eyes and all related structures Neck: Other: supple Neck: Yes normal visual inspection Chest: Chest palpation & inspection: normal inspection of the chest Resp: Auscultation: clear to auscultation bilaterally Cardio: Jugular venous distension: no JVD Rate: regular rate Rhythm: regular rhythm Heart sounds: S1 normal heart sound present and S2 normal heart sound present GI: Inspection: Yes normal to inspection Palpation (GI): Soft to palpation, nontender and No hepatosplenomegaly present Auscultation: normal bowel sounds : Other: rectum full of mostly soft stool some areas hard and firm General: Yes no CVA tenderness Back/Spine/Pelvis: Back: no CVA tenderness Skin: General skin exam: no rashes or lesions noted Neuro: General: oriented to person and patient oriented x3 Cranial nerves: Yes CN's II-XII intact bilaterally Motor exam (neuro): 5/5 motor strength present throughout Sensory Exam: No Sensory deficit (Neuro) Extrem: General: Yes normal to inspection Psych: Appearance: grossly normal Course Course Course Narrative: This is a rapid medical exam. Deferred additional HPI, ROS, PE to primary provider. 72 yo female with past medical history of ascending aortic aneurysm, hashimotos disease, hypothyroidism, lymphedema, osteoporosis, paralysis of the diaphragm, polymyalgia rheumatica, sarcoidosis here with complaints of lower back pain, constipation, rectal pain/pressure. Took laxative twice yesterday, once this morning (Senna), metamucil/magnesium (daily), one suppository. Last BM Monday. Tried fecal impaction herself this morning. Seen here 11/10 for back pain and discharged home on morphine but only took one pill. 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 Seen by physical therapy with recommendations for acute rehab however all 3 facilities denied admission. Patient did not have funds to pay for R&B for STR and medicare requires a 3 day qualifying hospital stay. Discharged home with home VNA services with first visit this morning. BP low this in triage, did not take her morning blood pressure meds but states her blood pressure was normotensive this morning at home. No chest pain/dizziness. ?error d/t patient moving her arm around. Will place her in a room and re-check BP. Reevaluation(s) Reevaluation #1: Procedure: rectal disimpaction of stool. Afterwards soap suds enema with large stool production patient at baseline Time: 14:45 Medical Decision Making Differential Diagnosis Differential Diagnoses: The differential diagnosis associated with the presentation includes (bowel obstruction, fecal impaction) Admission/Observation Consideration of admission/observation: Escalation of care including admission/observation considered (upon arrival patient considered for admission) Lab Data MDM Lab Attestation statement: I reviewed the patient's lab results. (no elevated wbc, slight hyponatremia) 11/13/22 12:43 11/13/22 12:43 Labs: Lab Results 11/13/22 11/13/22 Range/Units 12:43 12:43 WBC 8.0 (4.8-10.8) X10*3/uL RBC 4.67 (4.20-5.50) X10*6/uL Hgb 12.4 (12.0-16.0) g/dl Hct 36.9 L (37.0-47.0) % MCV 79.0 L (80.0-98.0) fL MCH 26.6 L (27.0-33.0) pg MCHC 33.6 (31.0-35.0) g/dl RDW 13.8 (11.0-16.0) % Plt Count 269 (160-400) X10*3/uL MPV 10.1 (9.4-12.3) fL Immature Gran % (Auto) 0.1 (0.0-0.4) % Neut % (Auto) 71.4 (45-73) % Lymph % (Auto) 23.0 (20-40) % Sabine % (Auto) 4.5 (2-11) % Eos % (Auto) 0.5 (0-4) % Baso % (Auto) 0.5 (0-2) % Lymph # (Auto) 1.8 (1.2-4.9) X10*3/uL Sabine # (Auto) 0.4 (0.1-1.2) X10*3/uL Eos # (Auto) 0.0 (0.0-0.4) X10*3/uL Baso # (Auto) 0.0 (0.0-0.2) X10*3/uL Abs Immat Gran (auto) 0.01 (0.00-0.03) X10*3/uL Absolute Neuts (auto) 5.7 (2.0-8.3) x10*3/uL Absolute Nucleated RBC 0.000 (0.0-0.012) X10*3/uL Nucleated RBC % (auto) 0.0 (0.0-0.2) /100WBC Sodium 133 L (135-145) mmol/L Potassium 3.9 (3.3-5.1) mmol/L Chloride 99 (96-108) mmol/L Carbon Dioxide 22 (22-29) mmol/L Anion Gap 16 (12-20) BUN 13 (9-16) mg/dL Creatinine 0.73 (0.5-1.4) mg/dL Estim Creat Clear Calc 63.2 Estimated GFR > 60 Random Glucose 107 (60-115) mg/dL Calcium 9.5 (8.4-10.2) mg/dL Total Bilirubin 0.4 (0.0-1.0) mg/dL Direct Bilirubin 0.1 (0.0-0.5) mg/dL AST 15 (5-31) U/L ALT 9 (0-31) U/L Alkaline Phosphatase 123 H (39-117) U/L Total Protein 7.6 (6.5-8.0) g/dL Albumin 4.1 (3.5-5.0) g/dL Independent Interpretation I performed an independent interpretation of an: Plain X-Ray (large stool burden no obstruction) Tests considered The following testing was considered but not selected: CT of abdomen considered but abdomen soft non focal and no evidence of obstruction on KUB Chronic Conditions Patient?s care impacted by: Other (constipation) Discharge Plan Discharge Clinical Impression: Constipation Patient Disposition: Home, Self-Care Instructions: Constipation (ED) Prescriptions: No Action (DME) stair lift ref [phone] See Rx Instructions .Route .MEDSUPPLY Qty: 1 0RF Rx Instructions: As directed sennosides-docusate sodium [Stimulant Laxative Plus] 8.6-50 mg tablet 2 tab PO BEDTIME amlodipine 2.5 mg tablet 2.5 mg PO DAILY levothyroxine 88 mcg tablet 88 mcg PO DAILY losartan 100 mg tablet 100 mg PO DAILY prednisone 20 mg tablet 40 mg PO DAILY 5 Days Qty: 10 0RF morphine 15 mg tablet 15 mg PO Q6H PRN (Reason: pain) 5 Days Qty: 10 0RF Rx Instructions: Partial Fill upon patient request. Referrals: Donnie Corrales MD [Primary Care Provider] - 5 days
[2022-11-13 11:02] VITALS: BP 77/44; PULSE 103; RESP 18; TEMP 36.1; O2SAT 98; BMI 23.7
[2022-11-13 12:50] LABS: MANUAL DIFF FLAG NO
[2022-11-13 12:52] LABS: Basophils Percent Auto 0.5 % (0-2); Eosinophils Percent Auto 0.5 % (0-4); Hematocrit 36.9 % (37.0-47.0); Hemoglobin 12.4 g/dl (12.0-16.0); Imm Gran Abs Auto 0.01 X10*3/uL (0.00-0.03); Imm Gran Pct Auto 0.1 % (0.0-0.4); Lymphocytes Absolute Auto 1.8 X10*3/uL (1.2-4.9); Mean Corpuscular HGB Conc 33.6 g/dl (31.0-35.0); Mean Corpuscular Hemoglobin 26.6 pg (27.0-33.0); Mean Platelet Volume 10.1 fL (9.4-12.3); Monocytes Absolute Auto 0.4 X10*3/uL (0.1-1.2); Monocytes Percent Auto 4.5 % (2-11); Neutrophils Absolute Auto 5.7 x10*3/uL (2.0-8.3); Neutrophils Percent Auto 71.4 % (45-73); Platelet Count 269 X10*3/uL (160-400); Red Blood Count 4.67 X10*6/uL (4.20-5.50); Red Cell Distribution Width 13.8 % (11.0-16.0)
[2022-11-13 13:06] LABS: Alanine Aminotransferase 9 U/L (0-31); Albumin Level 4.1 g/dL (3.5-5.0); Alkaline Phosphatase 123 U/L (39-117); Anion Gap 16 (12-20); Aspartate Amino Transferase 15 U/L (5-31); Bilirubin Direct 0.1 mg/dL (0.0-0.5); Bilirubin Total 0.4 mg/dL (0.0-1.0); Blood Urea Nitrogen 13 mg/dL (9-16); Calcium 9.5 mg/dL (8.4-10.2); Carbon Dioxide 22 mmol/L (22-29); Chloride 99 mmol/L (96-108); Creatinine Clr Calc Pharmacy 63.2; Estimated Glomerular Filt Rate > 60; Glucose Random 107 mg/dL (60-115); Potassium 3.9 mmol/L (3.3-5.1); Sodium 133 mmol/L (135-145); Total Protein 7.6 g/dL (6.5-8.0)
--- NOTE | 2022-11-13 14:14 | PC.NURSE ---
soap parul enema tolerated well
== END 2022-11-13 15:05 | disposition home or self-care (01) ==
PROVIDERS: Nurse Practitioner Family; Emergency Provider Emergency Medicine; PCP Internal Medicine
DX: M54.50 Low back pain, unspecified (principal); K59.00 Constipation, unspecified; Z79.899 Other long term (current) drug therapy
CPT/HCPCS: 36415; 74018; 80048; 80076; 85025; 99284

== ENCOUNTER → 2022-11-21 13:54 | Outpatient (REF) | payer MEDICARE, SELFPAY | LOC: HO.SL 13:54 | PROVIDERS: PCP Internal Medicine; Visit Provider Internal Medicine | DX: G47.10 Hypersomnia, unspecified (principal); R06.83 Snoring | CPT/HCPCS: 95806 ==

== ENCOUNTER → 2022-11-21 14:08 | Outpatient (BNV) | payer MEDICARE, SELFPAY | PROVIDERS: PCP Internal Medicine; Visit Provider Internal Medicine | DX: R06.83 Snoring (principal) | CPT/HCPCS: 95806 ==

== ENCOUNTER 2023-01-03 12:35 | Outpatient (AMB) | payer MEDICARE, SELFPAY ==
[2023-01-03 12:37] VITALS: BP 132/70; PULSE 79; O2SAT 96; BMI 24.1
--- NOTE | 2023-01-03 12:38 | A.OFFPC_ITS ---
Vital Signs 01/03/23 12:37 Height 5 ft 6 in Weight 149 lb 0.6 oz BMI 24.1 BP 132/70 Blood Pressure Location Lt brachial Position Sitting Pulse 79 Pulse Source Pulse Oximeter Pulse Oximetry (%) 96 Oxygen Delivery Method Room Air Intake Visit Reasons: Hypertension Allergies ibuprofen [From Motrin] Allergy (Intermediate, Verified 01/03/23 12:38) Hives adhesive [ADHESIVE BANDAGE] Allergy (Unknown, Verified 01/03/23 12:38) RASH,ERYTHEMA,BRUISING cephalexin [Keflex] Allergy (Unknown, Verified 01/03/23 12:38) Rash denosumab [From PROLIA] Allergy (Unknown, Verified 01/03/23 12:38) SEVERE MUSCLE PAIN epinephrine [EPINEPHRINE] Allergy (Unknown, Verified 01/03/23 12:38) POUNDING HEART/FEELS LIKE PASSING OUT Penicillins [PENICILLINS] Allergy (Unknown, Verified 01/03/23 12:38) RASH procaine [From Novocain] Allergy (Unknown, Verified 01/03/23 12:38) Heart racing sulfamethoxazole [From SEPTRA DS] Allergy (Unknown, Verified 01/03/23 12:38) RASH tetracycline [TETRACYCLINE] Allergy (Unknown, Verified 01/03/23 12:38) DIFFICULTY SWALLOWING, trouble swallowing, trouble swallowing trimethoprim [From SEPTRA DS] Allergy (Unknown, Verified 01/03/23 12:38) RASH hydrochlorothiazide Adverse Reaction (Intermediate, Verified 01/03/23 12:38) Headache lisinopril Adverse Reaction (Intermediate, Verified 01/03/23 12:38) Cough Tobacco use date assessed: 08/29/22 HPI Hypertension HPI Details 72-year-old female with hypertension hyp othyroidism osteoporosis ascending aorta aneurysm last seen in October 2022. Patient has mammogram is up-to-date bone density is due end of this year colonoscopy due for this year. Patient had a sleep study done November 2022 for hypersomnia negative for sleep apnea. Noted ER visit November 2022 for constipation. October 2022 for right lower back pain after lifting laundry having severe spasms placed on morphine and prednisone. Patient has seen Rheumatology also October 2022 with the are osteoarthritis with a history of polymyalgia. Patient had an ultrasound done of the bladder which was unremarkable. awaiting CT scan and reminding Dr. Chun. MRI to be done next month for pancreas check [facility] Medical History Ascending aortic aneurysm Collapsed lung H/O one miscarriage Ermias's disease Hypothyroidism assisted systemic steroid user Lymphedema Osteoporosis Palpitations Paralysis, diaphragm Polymyalgia rheumatica Rhinitis Sarcoidosis of lung Surgical History Fatty tumor H/O breast surgery H/O dilation and curettage H/O: hysterectomy History of bronchoscopy History of neck surgery History of open reduction and internal fixation (ORIF) procedure History of total abdominal hysterectomy Hx of thyroidectomy S/P plication of diaphragm Status post spinal disc removal Family History Father Emphysema lung Mother Aneurysm Emphysema lung Sister Chronic mental illness Celiac disease Breast cancer Family/Other Chronic mental illness Dementia Sister Pancreatic cancer Social History Housing: House Alcohol intake: former Patient Tobacco Use Status: Never used Tobacco e-Cigarette/Vaping Use: Never Used Second Hand Smoke Exposure: No Advance Directives Date on File: 09/10/22 service: No Current occupational status: retired Cognitive needs: No Hearing needs: No Vision needs: Yes Questionnaire Thrive Questionnaire Date Thrive assessed: 05/27/22 AUDIT C Alcohol Use Questionnaire (AUDIT-C) 1. How often do you have a drink containing alcohol?: Never 3. How often do you have six or more drinks on one occasion?: Never Total Score: 0 LEMUEL-7 AMB Questionnaire LEMUEL-7 Date LEMUEL - 7 assessed: 06/27/22 Source: Developed by Drs. Abran Goldsmith, Karin Landa, Mark Gilliam and colleagues, with an educational marlene from [employer]. Physical exam (Primary Care) Vital Signs: Last Vital Signs Pulse 79 01/03/23 12:37 BP 132/70 01/03/23 12:37 Pulse Ox 96 01/03/23 12:37 Oxygen Delivery Method Room Air 01/03/23 12:37 BMI result Body Mass Index 24.1 Tobacco/Smoking Status: Tobacco use Status Tobacco use date assessed 08/29/22 01/03/23 12:44 Patient Tobacco Use Status Never used Tobacco 01/03/23 12:44 e-Cigarette/Vaping Use Never Used 01/03/23 12:44 Thrive Assessment: Date of Thrive Assessment Date Thrive assessed 05/27/22 01/03/23 12:44 Const General: alert; No acute distress Eyes Conjunctivae: conjunctivae normal Resp Auscultation: clear to auscultation bilaterally Cardio Rate: regular rate Rhythm: regular rhythm GI Inspection: Yes normal to inspection Extrem General: Yes normal to inspection and No edema Assessment and Plan Assessment & Plan (1) Osteoporosis: Comment: February 2021 Code(s): M81.0 - Age-related osteoporosis without current pathological fracture Qualifiers: Osteoporosis type: age-related Presence of current pathological fracture: without current pathological fracture Qualified Code(s): M81.0 - Age- related osteoporosis without current pathological fracture Plan: Reminded about bone density February 2023 (2) Hypothyroidism: Comment: March 2022 Code(s): E03.9 - Hypothyroidism, unspecified Qualifiers: Hypothyroidism type: due to Ermias's thyroiditis Qualified Code(s): E03.8 - Other specified hypothyroidism; E06.3 - Autoimmune thyroiditis Plan: Continue with thyroid medication (3) Hypertension: Comment: Lisinopril taken off due to cough Code(s): I10 - Essential (primary) hypertension Plan: Continue with blood pressure medication. Decrease salt intake and exercise patient on amlodipine 2.5 mg once a day and losartan 100 mg once a day (4) Urinary retention: Comment: Ultrasound done negative Code(s): R33.9 - Retention of urine, unspecified Plan: Ultrasound of the bladder done negative (5) Bicipital tendinitis of right shoulder: Code(s): M75.21 - Bicipital tendinitis, right shoulder Orders: Orders Complete Blood Count Auto Diff 3 Months I10 - Essential (primary) hypertension Thyroid Stimulating Hormone 3 Months I10 - Essential (primary) hypertension Vitamin B12 and Folate 3 Months I10 - Essential (primary) hypertension IRON PROFILE 3 Months I10 - Essential (primary) hypertension Reticulocyte Count 3 Months I10 - Essential (primary) hypertension Comprehensive Met. Panel 3 Months I10 - Essential (primary) hypertension Free T4 (Free Thyroxine) 3 Months I10 - Essential (primary) hypertension Vitamin D 25-OH Total 3 Months I10 - Essential (primary) hypertension Lipid Panel 3 Months E78.00 - Pure hypercholesterolemia, unspecified, I10 - Essential (primary) hypertension Ferritin 3 Months I10 - Essential (primary) hypertension Medications: Discontinued morphine Partial Fill upon patient request. Discontinued Reason: Ancillary Entered New Order 15 mg PO Q6H 5 days PRN 10 tabs 0RF pain Coding Level of Care Code Est Pt Level 4 (13150) Diagnoses Age-related osteoporosis without current pathological fracture M81.0 Osteoporosis type: age-related Presence of current pathological fracture: without current pathological fracture Hypothyroidism due to Ermias's thyroiditis E03.8; E06.3 Hypothyroidism type: due to Ermias's thyroiditis Hypertension I10 Urinary retention R33.9 Bicipital tendinitis of right shoulder M75.21
== END 2023-01-03 13:19 | disposition home or self-care (01) ==
PROVIDERS: PCP Internal Medicine; Visit Provider Internal Medicine
DX: M81.0 Age-related osteoporosis without current pathological fracture (principal); E03.8 Other specified hypothyroidism; E06.3 Autoimmune thyroiditis; I10 Essential (primary) hypertension; R33.9 Retention of urine, unspecified; M75.21 Bicipital tendinitis, right shoulder
CPT/HCPCS: 99214

== ENCOUNTER 2023-04-13 08:21 | Outpatient (REF) | payer MEDICARE, SELFPAY ==
[2023-04-13 08:33] LABS: MANUAL DIFF FLAG NO
[2023-04-13 08:39] LABS: Basophils Absolute Auto 0.1 X10*3/uL (0.0-0.2); Basophils Percent Auto 0.8 % (0-2); Eosinophils Absolute Auto 0.2 X10*3/uL (0.0-0.4); Eosinophils Percent Auto 2.5 % (0-4); Hemoglobin 12.2 g/dl (12.0-16.0); Imm Gran Abs Auto 0.02 X10*3/uL (0.00-0.03); Imm Gran Pct Auto 0.3 % (0.0-0.4); Immature Retic Fraction 11.1 % (3.0-15.9); Lymphocytes Absolute Auto 2.7 X10*3/uL (1.2-4.9); Lymphocytes Percent Auto 37.1 % (20-40); Mean Corpuscular Hemoglobin 26.7 pg (27.0-33.0); Mean Platelet Volume 9.9 fL (9.4-12.3); Monocytes Absolute Auto 0.4 X10*3/uL (0.1-1.2); Neutrophils Absolute Auto 3.9 x10*3/uL (2.0-8.3); Neutrophils Percent Auto 53.3 % (45-73); Platelet Count 336 X10*3/uL (160-400); Red Blood Count 4.57 X10*6/uL (4.20-5.50); Red Cell Distribution Width 13.8 % (11.0-16.0); Retic HGB Equivalent 31.3 pg (30.0-35.0); Reticulocyte Percent 1.3 % (0.5-1.8); Reticulocytes Absolute 0.057 X10*6/uL (0.026-0.095); White Blood Count 7.3 X10*3/uL (4.8-10.8)
[2023-04-13 09:34] LABS: Alanine Aminotransferase 8 U/L (0-31); Albumin Level 3.9 g/dL (3.5-5.0); Alkaline Phosphatase 115 U/L (39-117); Anion Gap 11 (12-20); Aspartate Amino Transferase 11 U/L (5-31); Bilirubin Total 0.3 mg/dL (0.0-1.0); Blood Urea Nitrogen 17 mg/dL (9-16); Calcium 9.3 mg/dL (8.4-10.2); Carbon Dioxide 27 mmol/L (22-29); Chloride 103 mmol/L (96-108); Cholesterol 179 mg/dL (<200); Estimated Glomerular Filt Rate > 60; Glucose Random 96 mg/dL (60-115); HDL Cholesterol 61 mg/dL (>40); Iron 77 mcg/dL (30-160); LDL Cholesterol Calculated 104 mg/dL (<100); Percent Iron Saturation 31 % (15-50); Potassium 4.1 mmol/L (3.3-5.1); Sodium 137 mmol/L (135-145); Total Iron Binding Capacity 252 mcg/dL (228-428); Total Protein 7.3 g/dL (6.5-8.0); Triglycerides 71 mg/dL (<150); Unsaturated Iron Binding 175 ug/dL
[2023-04-13 09:51] LABS: Ferritin 83 ng/mL (10-250); Free T4 (Free Thyroxine) 1.29 ng/dL (0.71-1.85); Thyroid Stimulating Hormone 1.09 uIU/mL (0.32-4.0); Vitamin D 25-OH Total 37.7 ng/mL (>30)
[2023-04-13 10:06] LABS: Folate 8.8 ng/mL (> or = 4.0)
[2023-04-13 10:16] LABS: Vitamin B12 485 pg/mL (200-900)
== END 2023-04-13 08:22 | disposition home or self-care (01) ==
LOC: HO.LAB 08:21
PROVIDERS: PCP Internal Medicine; Visit Provider Internal Medicine
DX: I10 Essential (primary) hypertension (principal); E78.00 Pure hypercholesterolemia, unspecified
CPT/HCPCS: 36415; 80053; 80061; 82306; 82607; 82728; 82746; 83540; 84439; 84443; 85025; 85045

== ENCOUNTER 2023-04-18 14:03 | Outpatient (AMB) | payer MEDICARE, SELFPAY ==
[2023-04-18 14:05] VITALS: BP 124/72; PULSE 99; O2SAT 99; BMI 24.5
--- NOTE | 2023-04-18 14:05 | MHC.PC.OV ---
Vital Signs 04/18/23 14:05 Height 5 ft 6 in Weight 152 lb BMI 24.5 BP 124/72 Blood Pressure Location Lt brachial Position Sitting Pulse 99 Pulse Source Pulse Oximeter Temp Source Skin Pulse Oximetry (%) 99 Oxygen Delivery Method Room Air Intake Visit Reasons: HTN , hypothyroid Intake Note: Patient is here to follow up on HTN, hypothyroid Allergies ibuprofen [From Motrin] Allergy (Intermediate, Verified 04/18/23 14:10) Hives adhesive [ADHESIVE BANDAGE] Allergy (Unknown, Verified 04/18/23 14:10) RASH,ERYTHEMA,BRUISING cephalexin [Keflex] Allergy (Unknown, Verified 04/18/23 14:10) Rash denosumab [From PROLIA] Allergy (Unknown, Verified 04/18/23 14:10) SEVERE MUSCLE PAIN epinephrine [EPINEPHRINE] Allergy (Unknown, Verified 04/18/23 14:10) POUNDING HEART/FEELS LIKE PASSING OUT Penicillins [PENICILLINS] Allergy (Unknown, Verified 04/18/23 14:10) RASH procaine [From Novocain] Allergy (Unknown, Verified 04/18/23 14:10) Heart racing sulfamethoxazole [From SEPTRA DS] Allergy (Unknown, Verified 04/18/23 14:10) RASH tetracycline [TETRACYCLINE] Allergy (Unknown, Verified 04/18/23 14:10) DIFFICULTY SWALLOWING, trouble swallowing, trouble swallowing trimethoprim [From SEPTRA DS] Allergy (Unknown, Verified 04/18/23 14:10) RASH hydrochlorothiazide Adverse Reaction (Intermediate, Verified 04/18/23 14:10) Headache lisinopril Adverse Reaction (Intermediate, Verified 04/18/23 14:10) Cough Tobacco use date assessed: 04/18/23 Fall risk assessment: No Falls in past year Last assessed Fall Risk: 04/18/23 Dental Screening Dental Screen Date: 04/18/23 Did you have a dental visit in the last 12 months?: Yes Did you have a dental problem in the last 6 months where you did not have access to dental care?: No Was dental information given to patient?: Patient has dentist HPI HTN , hypothyroid HPI Details 73-year-old female with a history of osteoporosis hypothyroidism hypertension urinary retention coming in for follow-up. December 2022 last seen. Patient's mammogram is due this month bone density is due as well as colonoscopy. Review of the notes in February 2023 seen by Cardiology for history of aortic aneurysm January 30 24 cm December 2020 4.1-4.2 and January 30 234.2 cm threshold of concern on aortic valve morphology 5.5 cm for a normal valve and for bicuspid valve 5 cm has advised follow-up CT in 1 year. [facility] Medical History Ascending aortic aneurysm Collapsed lung H/O one miscarriage Ermias's disease Hypothyroidism [facility] systemic steroid user Lymphedema Osteoporosis Palpitations Paralysis, diaphragm Polymyalgia rheumatica Rhinitis Sarcoidosis of lung Surgical History Fatty tumor H/O breast surgery H/O dilation and curettage H/O: hysterectomy History of bronchoscopy History of neck surgery History of open reduction and internal fixation (ORIF) procedure History of total abdominal hysterectomy Hx of thyroidectomy S/P plication of diaphragm Status post spinal disc removal Family History Father Emphysema lung Mother Aneurysm Emphysema lung Sister Chronic mental illness Celiac disease Breast cancer Family/Other Chronic mental illness Dementia Sister Pancreatic cancer Social History Housing: House Alcohol intake: former Patient Tobacco Use Status: Never used Tobacco e-Cigarette/Vaping Use: Never Used Second Hand Smoke Exposure: No Advance Directives Date on File: 09/10/22 service: No Current occupational status: retired Cognitive needs: No Hearing needs: No Vision needs: Yes Questionnaire Thrive Questionnaire Date Thrive assessed: 04/18/23 AUDIT C Alcohol Use Questionnaire (AUDIT-C) 1. How often do you have a drink containing alcohol?: Never 3. How often do you have six or more drinks on one occasion?: Never Total Score: 0 LEMUEL-7 AMB Questionnaire LEMUEL-7 Date LEMUEL - 7 assessed: 04/18/23 Source: Developed by Drs. Abran Goldsmith, Karin Landa, Mark Gilliam and colleagues, with an educational marlene from [employer]. Physical exam (Primary Care) Vital Signs: Last Vital Signs Pulse 99 04/18/23 14:05 BP 124/72 04/18/23 14:05 Pulse Ox 99 04/18/23 14:05 Oxygen Delivery Method Room Air 04/18/23 14:05 BMI result Body Mass Index 24.5 Tobacco/Smoking Status: Tobacco use Status Tobacco use date assessed 04/18/23 04/18/23 14:07 Patient Tobacco Use Status Never used Tobacco 04/18/23 14:07 e-Cigarette/Vaping Use Never Used 04/18/23 14:07 Thrive Assessment: Date of Thrive Assessment Date Thrive assessed 04/18/23 04/18/23 14:07 Const General: alert; No acute distress Eyes Conjunctivae: conjunctivae normal Resp Auscultation: clear to auscultation bilaterally Cardio Rate: regular rate Rhythm: regular rhythm GI Inspection: Yes normal to inspection Extrem General: Yes normal to inspection and No edema Assessment and Plan Assessment & Plan (1) Hypertension: Comment: Lisinopril taken off due to cough Code(s): I10 - Essential (primary) hypertension Plan: Continue with blood pressure medication. Decrease salt intake and exercise presently on amlodipine 2.5 mg once a day losartan 100 mg once a day (2) Hypothyroidism: Comment: March 2022 Code(s): E03.9 - Hypothyroidism, unspecified Qualifiers: Hypothyroidism type: due to Ermias's thyroiditis Qualified Code(s): E03.8 - Other specified hypothyroidism; E06.3 - Autoimmune thyroiditis Plan: Continue with thyroid medication 88 mcg once a day (3) Osteoporosis: Comment: February 2021 Code(s): M81.0 - Age-related osteoporosis without current pathological fracture Qualifiers: Osteoporosis type: age-related Presence of current pathological fracture: without current pathological fracture Qualified Code(s): M81.0 - Age-related osteoporosis without current pathological fracture Plan: Reminded about bone density, has a schedule (4) Ascending aortic aneurysm: Comment: 2020, Dr. Chun thoracic aortic aneurysm 4.2 cm 2022 Code(s): I71.2 - Thoracic aortic aneurysm, without rupture Plan: Received notes from cardiovascular and yearly CT scan to monitor for the thoracic aortic aneurysm 4.2 cm 2022 (5) Pancreatic cyst: Comment: multiple 12/20/2021, 01/2023 Code(s): K86.2 - Cyst of pancreas Plan: Advised to repeat test in 2 years buty MRI was done 01/2023 Medications: Changed From amlodipine 2.5 mg PO DAILY 90 tabs 1RF I10 - Essential (primary) hypertension To amlodipine 5 mg PO DAILY 90 tabs 1RF I10 - Essential (primary) hypertension Coding Level of Care Code Est Pt Level 4 (12887) Diagnoses Hypertension I10 Hypothyroidism due to Ermias's thyroiditis E03.8; E06.3 Hypothyroidism type: due to Ermias's thyroiditis Age-related osteoporosis without current pathological fracture M81.0 Osteoporosis type: age-related Presence of current pathological fracture: without current pathological fracture Ascending aortic aneurysm I71.2 Pancreatic cyst K86.2
== END 2023-04-18 14:40 | disposition home or self-care (01) ==
PROVIDERS: PCP Internal Medicine; Visit Provider Internal Medicine
DX: I10 Essential (primary) hypertension (principal); I71.20 Thoracic aortic aneurysm, without rupture, unspecified; E03.8 Other specified hypothyroidism; E06.3 Autoimmune thyroiditis; M81.0 Age-related osteoporosis without current pathological fracture; K86.2 Cyst of pancreas
CPT/HCPCS: 99214

== ENCOUNTER 2023-05-02 13:15 | Outpatient (REF) | payer MEDICARE, SELFPAY ==
--- NOTE | ~2023-05-02 | MM_ITS ---
EXAMINATION: MM SCREENING DIGITAL BREAST TOMOSYNTHESIS, BILATERAL CLINICAL INFORMATION: Screening. Asymptomatic. COMPARISON: Mammography: This study is compared with prior exams dating back to 2019. TECHNIQUE: Digital breast tomosynthesis is performed in both the craniocaudal and mediolateral oblique views along with computer-aided detection (CAD). Synthesized 2D images are generated from the tomosynthesis. FINDINGS: There are scattered areas of fibroglandular density (ACR BI-RADS breast composition Category b). There are no significant masses, abnormal calcifications, or other abnormalities. Bilateral, unchanged benign calcifications are present in each breast. MM/MM tomosynthesis screening BI IMPRESSION: No mammographic evidence of malignancy. ASSESSMENT: BI-RADS BI-RADS 2 - Benign Findings RECOMMENDATION: Routine annual mammography screening. 1 year F/U This examination should not preclude the clinical evaluation of a suspicious palpable abnormality. This patient's information was entered into a reminder system with a target due date for their next mammogram.
--- NOTE | ~2023-05-02 | MM_ITS ---
EXAMINATION: BONE DENSITOMETRY CLINICAL INDICATION: Age-related osteoporosis without current pathological fracture. COMPARISON: Previous BD dated 02/16/2021 and baseline BD dated 07/20/2006. TECHNIQUE: Using a [employer] DXA System (software version: 13.1) manufactured by [employer], dual-energy x-ray absorptiometry was performed of the lumbar spine and left hip. The images are of good technical quality. Summary results are attached. FINDINGS: LEFT FEMUR, NECK: Current: BMD 0.689 g/cm2, Z-score -0.7, T-score -2.5, osteoporosis. Prior: BMD 0.633 g/cm2. Baseline: BMD 0.795 g/cm2. LEFT FEMUR, TOTAL: Current: BMD 0.653 g/cm2, Z-score -1.2, T-score -2.8, osteoporosis, 1.9% increase from previous, 7.4% decrease from baseline (<5% change is not significant). Prior: BMD 0.641 g/cm2. Baseline: BMD 0.705 g/cm2. AP SPINE L1-L4: Current: BMD 0.740 g/cm2, Z-score -2.0, T-score -3.7, osteoporosis, 0.5% decrease from previous, 17.6% decrease from baseline (<5% change is not significant). Prior: BMD 0.744 g/cm2. Baseline: BMD 0.898 g/cm2. IDENTIFIED RISK FACTORS: Osteoporosis, low calcium intake, parental hip fracture, history of fracture (adult). Early menopause, secondary osteoporosis, glucocorticoids, hysterectomy, bilateral oophorectomy. HISTORY OF FRACTURE: Femur. Other. MEDICATIONS: Vitamin D. MM/XR DEXA axial skeleton IMPRESSION: 1. DIAGNOSIS: Severe osteoporosis based on the lowest T-score value of -3.7 in the lumbar spine and history of fracture applying World Health Organization criteria. 2. 10-YEAR FRACTURE RISK PREDICTION, FRAX: According to the guidelines, FRAX calculation should only be performed on patients in the osteopenia bone density category. Therefore, FRAX was not performed on this patient. 3. Treatment Recommendations: NOF guidelines recommend consideration for treatment in postmenopausal women and men age 50 and older presenting with the following: -A hip or vertebral (clinical or morphometric) fracture. -T-score less than or equal to -2.5 at the femoral neck or spine after appropriate evaluation to exclude secondary causes. -Low bone mass at the hip or spine and a 10-year fracture probability by FRAX of greater than or equal to 3% for hip fracture or greater than or equal to 20% for major osteoporotic fracture based on the [place] adapted WHO algorithm. 4. Other Recommendations: All treatment decisions require clinical judgment and consideration of individual patient factors, including patient preferences, comorbidities, previous drug use, risk factors not captured in the FRAX model (e.g. frailty, falls, vitamin D deficiency, increased bone turnover, interval significant decline in bone density) and possible under or overestimation of fracture risk by FRAX. Additional medical evaluation for secondary cause of low bone mineral density may be appropriate. FUTURE SCAN RECOMMENDATION: People with diagnosed cases of osteoporosis or at high risk for fracture should have regular bone mineral density tests. For patients eligible for Medicare, routine testing is allowed once every 2 years. The testing frequency can be increased to one year for patients who have rapidly progressing disease, those who are receiving or discontinuing medical therapy to restore bone mass, or have additional risk factors.
== END 2023-05-02 13:16 | disposition home or self-care (01) ==
LOC: HO.MAMMO 13:15
PROVIDERS: PCP Internal Medicine; Visit Provider Internal Medicine
DX: M81.0 Age-related osteoporosis without current pathological fracture (principal); Z12.31 Encounter for screening mammogram for malignant neoplasm of breast
CPT/HCPCS: 77063; 77067; 77080

== ENCOUNTER → 2023-05-02 13:30 | Outpatient (BNV) | payer MEDICARE, SELFPAY | PROVIDERS: PCP Internal Medicine; Visit Provider Radiology Diagnostic Radiology | DX: Z12.31 Encounter for screening mammogram for malignant neoplasm of breast (principal) | CPT/HCPCS: 77063; 77067 ==

== ENCOUNTER 2023-07-31 13:45 | Outpatient (AMB) | payer MEDICARE, SELFPAY ==
[2023-07-31 13:46] VITALS: BP 112/70; PULSE 93; O2SAT 95; BMI 24.9
--- NOTE | 2023-07-31 13:47 | A.OFFVIS_ITS ---
Intake Vital Signs 07/31/23 13:46 Height 5 ft 6 in Weight 154 lb BMI 24.9 BP 112/70 Blood Pressure Location Lt brachial Position Sitting Pulse 93 Pulse Source Pulse Oximeter Pulse Oximetry (%) 95 Oxygen Delivery Method Room Air Intake Visit Reasons: sawv Allergies ibuprofen [From Motrin] Allergy (Intermediate, Verified 07/31/23 13:47) Hives adhesive [ADHESIVE BANDAGE] Allergy (Unknown, Verified 07/31/23 13:47) RASH,ERYTHEMA,BRUISING cephalexin [Keflex] Allergy (Unknown, Verified 07/31/23 13:47) Rash denosumab [From PROLIA] Allergy (Unknown, Verified 07/31/23 13:47) SEVERE MUSCLE PAIN epinephrine [EPINEPHRINE] Allergy (Unknown, Verified 07/31/23 13:47) POUNDING HEART/FEELS LIKE PASSING OUT Penicillins [PENICILLINS] Allergy (Unknown, Verified 07/31/23 13:47) RASH procaine [From Novocain] Allergy (Unknown, Verified 07/31/23 13:47) Heart racing sulfamethoxazole [From SEPTRA DS] Allergy (Unknown, Verified 07/31/23 13:47) RASH tetracycline [TETRACYCLINE] Allergy (Unknown, Verified 07/31/23 13:47) DIFFICULTY SWALLOWING, trouble swallowing, trouble swallowing trimethoprim [From SEPTRA DS] Allergy (Unknown, Verified 07/31/23 13:47) RASH hydrochlorothiazide Adverse Reaction (Intermediate, Verified 07/31/23 13:47) Headache lisinopril Adverse Reaction (Intermediate, Verified 07/31/23 13:47) Cough Medication List - Last Reconciled 07/31/23 by Donnie Corrales MD amlodipine 5 mg PO DAILY levothyroxine 88 mcg PO DAILY losartan 100 mg PO DAILY sennosides-docusate sodium 8.6-50 mg (Stimulant Laxative Plus) 2 tabs PO BEDTIME [stair lift As directed] HPI sawv HPI Details 73-year-old female with a history of hyp ertension hypothyroidism osteoporosis history of ascending aortic aneurysm and pancreatic cysts last seen in April 2023. For the pancreatic cyst last test was January 2023 the repeat test was recommended 2 years will be due for 2024. Mammogram is up-to-date bone density is up-to-date. Colonoscopy done in December 2022. Colonoscopy was done in June 2023 hemorrhoids noted otherwise normal. Patient also did see arthritis treatment center April 2023 has had history of giant cell arteritis and polymyalgia rheumatica which are controlled presently . For the work sheet patient has declined answering the form. light headed, sob on exertion, this occured since surgery done on diaphragm paralysis [facility] Medical History Ascending aortic aneurysm Collapsed lung H/O one miscarriage Ermias's disease Hypothyroidism [facility] systemic steroid user Lymphedema Osteoporosis Palpitations Paralysis, diaphragm Polymyalgia rheumatica Rhinitis Sarcoidosis of lung Surgical History Fatty tumor H/O breast surgery H/O dilation and curettage H/O: hysterectomy History of bronchoscopy History of neck surgery History of open reduction and internal fixation (ORIF) procedure History of total abdominal hysterectomy Hx of thyroidectomy S/P plication of diaphragm Status post spinal disc removal Family History Father Emphysema lung Mother Aneurysm Emphysema lung Sister Chronic mental illness Celiac disease Breast cancer Family/Other Chronic mental illness Dementia Sister Pancreatic cancer Social History (Updated 07/31/23 @ 14:11 by Donnie Corrales MD) Housing: House Alcohol intake: current Comment: glass of wine holidays Patient Tobacco Use Status: Never used Tobacco Years Smoked: high school 4 years e-Cigarette/Vaping Use: Never Used Second Hand Smoke Exposure: No Advance Directives Date on File: 09/10/22 service: No Current occupational status: retired Cognitive needs: No Hearing needs: No Vision needs: Yes Questionnaire Medicare Wellness Checkup [age] What gender do you identify with?: female PHQ-9 Over the last 2 weeks, how often have you been bothered by any of the following problems? 1. Little interest or pleasure in doing things: not at all 2. Feeling down, depressed, or hopeless: not at all 3. Trouble falling or staying asleep, or sleeping too much: not at all 4. Feeling tired or having little energy: not at all 5. Poor appetite or overeating: not at all 6. Feeling bad about yourself - or that you are a failure or have let yourself or your family down: not at all 7. Trouble concentrating on things, such as reading the newspaper or watching television: not at all 8. Moving or speaking so slowly that other people could have noticed. Or the opposite - being so fidgety or restless that you have been moving around a lot more than usual: not at all 9. Thoughts that you would be better off or of hurting yourself in some way: not at all Total score: 0 Depression Screening Interpretation: Negative Depression Screening Done: Yes [id number] - PHQ-9 Billing: Patient declined-do not bill Source: Developed by Drs. Abran Goldsmith, Karin Landa, Mark Gilliam and colleagues, with an educational marlene from [employer]. Review of Systems Const Denies poor appetite and Denies weakness Eyes Denies no additional complaints ENT Reports Normal hearing present, Denies dizziness, Denies nasal congestion, Denies tinnitus and Denies sore throat Card Denies chest pain, Denies syncope, Denies rapid heart rate and Denies dyspnea Resp Denies cough and Denies dyspnea GI Denies change in stool character, Reports constipation, Denies diarrhea, Denies nausea and Denies vomiting Denies urinary frequency, Denies difficulty voiding and Denies dysuria Neuro Reports Normal hearing present, Denies confusion, Denies dizziness, Denies syncope and Denies weakness Psych Denies confusion Physical Exam Vital Signs: Last Vital Signs Pulse 93 07/31/23 13:46 BP 112/70 07/31/23 13:46 Pulse Ox 95 07/31/23 13:46 Oxygen Delivery Method Room Air 07/31/23 13:46 BMI result Body Mass Index 24.9 Const General: No confusion Orientation/consciousness: No confusion HEENT Head: Yes normocephalic Ears: external ears normal and TM's normal bilaterally Face and sinus: Yes normal facial exam Mouth: moist mucous membranes Throat: Yes tonsils normal Eyes Conjunctivae: conjunctivae normal Pupils: Equal, round and reactive pupils present and Pupil accommodation reflex normal Direct Ophthalmoscopy: normal light reflex Neck Neck: No lymphadenopathy Thyroid: Thyroid normal Chest Chest palpation & inspection: normal inspection of the chest Resp Effort & Inspection: normal respiratory effort and no audible wheezes Auscultation: clear to auscultation bilaterally, no crackles, no wheezes and lung sounds not diminished Cardio Rate: regular rate Rhythm: regular rhythm Peripheral pulses: radial pulses present and dorsalis pedis present GI Palpation (GI): no masses Auscultation: normal bowel sounds and normoactive bowel sounds Rectal Exam - Female: deferred Skin General skin exam: no rashes or lesions noted Rashes: no rashes Neuro General: No confusion Cranial nerves: Yes Equal, round and reactive pupils present and Yes Normal hear ing present Cognition (Neuro): normal cognition Gait exam (Neuro): Normal gait present Motor exam (neuro): 5/5 motor strength present throughout Deep tendon reflexes (DTR's): Right brachioradialis reflex intensity grade: 2+, Left brachioradialis reflex intensity grade: 2+, Right patellar reflex intensity grade: 2+ and Left patellar reflex intensity grade: 2+ Extrem General: No edema Assessment & Plan Assessment & Plan (1) Medicare annual wellness visit, subsequent: Code(s): Z00.00 - Encounter for general adult medical examination without abnormal findings Plan: Patient is advised to eat healthy, keep well hydrated, keep active and have adequate sleep. 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 Chun thoracic aortic aneurysm 4.2 cm 2022 Code(s): I71.2 - Thoracic aortic aneurysm, without rupture Plan: Patient follows up with Cardiology and due for testing (6) Hypothyroidism: Comment: March 2022 Code(s): E03.9 - Hypothyroidism, unspecified Qualifiers: Hypothyroidism type: due to Ermias's thyroiditis Qualified Code(s): E03.8 - Other specified hypothyroidism; E06.3 - Autoimmune thyroiditis Plan: Continue with thyroid medication 88 mcg once a day (7) Hypertension: Comment: Lisinopril taken off due to cough Code(s): I10 - Essential (primary) hypertension Qualifiers: Hypertension type: primary hypertension Qualified Code(s): I10 - Essential (primary) hypertension Plan: Continue with blood pressure medication. Decrease salt intake and exercise on amlodipine 5 mg and losartan 100 mg once a day (8) Hearing deficit: Code(s): H91.90 - Unspecified hearing loss, unspecified ear Qualifiers: Hearing loss type: mixed conductive and sensorineural Laterality: bilateral Qualified Code(s): H90.6 - Mixed conductive and sensorineural hearing loss, bilateral Plan: Hearing test requested Orders: Referrals Speech and Hearing Referral H91.90 - Unspecified hearing loss, unspecified ear Medications: Refilled ipratropium bromide 2 sprays intranasal TID PRN 7 supp 3RF shortness of breath 90 days J31.0 - Chronic rhinitis Quality Reporting (2019) Depression/Bipolar (159/160/161/177) PHQ-9: Total score: 0 Coding Level of Care Code Medicare Subsequent (G0439) Diagnoses Medicare annual wellness visit, subsequent Z00.00 Polymyalgia rheumatica M35.3 Pancreatic cyst K86.2 Temporal arteritis M31.6 Ascending aortic aneurysm I71.2 Hypothyroidism due to Ermias's thyroiditis E03.8; E06.3 Hypothyroidism type: due to Ermias's thyroiditis Primary hypertension I10 Hypertension type: primary hypertension Mixed conductive and sensorineural hearing loss of both ears H90.6 Hearing loss type: mixed conductive and sensorineural Laterality: bilateral
== END 2023-07-31 14:26 | disposition home or self-care (01) ==
PROVIDERS: PCP Internal Medicine; Visit Provider Internal Medicine
DX: Z00.00 Encounter for general adult medical examination without abnormal findings (principal); M35.3 Polymyalgia rheumatica; M31.6 Other giant cell arteritis; I71.20 Thoracic aortic aneurysm, without rupture, unspecified; K86.2 Cyst of pancreas; E03.8 Other specified hypothyroidism; E06.3 Autoimmune thyroiditis; I10 Essential (primary) hypertension; H90.6 Mixed conductive and sensorineural hearing loss, bilateral
CPT/HCPCS: G0439

== ENCOUNTER 2023-09-07 12:39 | Outpatient (REF) | payer MEDICARE, SELFPAY | END 2023-09-07 12:40 | disposition home or self-care (01) | LOC: HO.SH 12:39 | PROVIDERS: Visit Provider Internal Medicine | DX: Z01.118 Encounter for examination of ears and hearing with other abnormal findings (principal); H90.3 Sensorineural hearing loss, bilateral | CPT/HCPCS: 92557; 92567 ==

== ENCOUNTER → 2023-11-08 14:09 | Outpatient (RCR) | payer MEDICARE, SELFPAY ==
[2020-02-03 13:36] VITALS: BP 134/63; PULSE 98; RESP 20; TEMP 36.7; O2SAT 98; BMI 24.7
--- NOTE | 2020-02-03 13:52 | P.CNHO_ITS ---
Subjective - Subjective Chief complaint: Elevated ESR Consult date: 02/03/20 Primary Care Provider: Nahomy Haney MD HPI - Consult Narrative Reason for consult: Elevated ESR Narrative: Jessica Clement is a 69 year old female with longstanding history of polymyalgia rheumatica presenting with rising ESR. According to patient she was diagnosed with PMR 3 years ago, she has been on dexamethasone with tapering doses. She is doing much better in terms of her myalgias. In fact, this year has been good overall and she has had no concerning symptoms at all. Specifica lly, she denies any fever, chills, night sweats or unexplained weight loss. No loss of appetite or change in bowel habits. No abdominal pain. 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 She has undergone fundoplication in [facility] last year with some improvement in her chronic shortness of breath. She has a history of pancreatic cysts and is followed by a television maintenance man at [facility]. She had an MRI abdomen 2 months ago and this is reportedly normal. She has a family history of breast and pancreatic cancer. She does not think any of her siblings were tested for inherited breast/ovarian cancer syndromes. Review of Systems - Constitutional Reports no additional constitutional complaints - Cardiovascular Reports no additional cardiovascular complaints - Respiratory Reports no additional respiratory complaints - Gastrointestinal Reports no additional gastrointestinal complaints Oncology Screenings - ECOG Performance Status ECOG Performance Status: 1 [facility] Medical History: Medical History (Last Updated 02/03/20 @ 13:44 by Adrianne Reed RN) Ascending aortic aneurysm Collapsed lung H/O one miscarriage Ermias's disease Hypothyroidism residential systemic steroid user Osteoporosis Paralysis, diaphragm Polymyalgia rheumatica Rhinitis Sarcoidosis of lung Family History: Family History (Last Updated 02/03/20 @ 13:50 by Adrianne Reed RN) Father Emphysema lung Mother Aneurysm Emphysema lung Sister Chronic mental illness Celiac disease Breast cancer Family/Other Chronic mental illness Dementia Sister Pancreatic cancer Surgical History: Surgical History (Last Updated 02/03/20 @ 13:44 by Adrianne Reed RN) Fatty tumor H/O breast surgery H/O dilation and curettage H/O: hysterectomy History of bronchoscopy History of neck surgery History of open reduction and internal fixation (ORIF) procedure History of total abdominal hysterectomy Hx of thyroidectomy S/P plication of diaphragm Status post spinal disc removal Smoking status: Never smoker Alcohol intake: never Home Medications and Allergies Home Medications Medication Instructions Recorded Confirmed Type cyclosporine 0.05 % eye drops in a 1 drp OPHTHALMIC (EYE) BID 01/07/20 02/03/20 History dropperette ipratropium bromide 42 mcg (0.06 2 spray INTRANASAL TID PRN 01/07/20 02/03/20 History %) nasal spray levothyroxine 100 mcg tablet 100 mcg PO DAILY 01/07/20 02/03/20 History magnesium 250 mg tablet 250 mg PO DAILY 01/10/20 02/03/20 History cholecalciferol (vitamin D3) 50 mcg PO DAILY 02/03/20 02/03/20 History [Vitamin D3] dexamethasone See Rx Instructions .ROUTE .COMPLEX 02/03/20 02/03/20 History Allergies Allergy/AdvReac Type Severity Reaction Status Date / Time adhesive [ADHESIVE BANDAGE] Allergy Unknown RASH,ERYTHE Verified 02/03/20 13:46 MA,BRUISING cephalexin [Keflex] Allergy Unknown Rash Verified 02/03/20 13:46 denosumab [From PROLIA] Allergy Unknown SEVERE Verified 02/03/20 13:46 MUSCLE PAIN epinephrine [EPINEPHRINE] Allergy Unknown POUNDING Verified 02/03/20 13:46 HEART/FEELS LIKE PASSING OUT ibuprofen [From MOTRIN] Allergy Unknown HIVES Verified 02/03/20 13:46 Motrin Allergy Unknown hives Verified 02/03/20 13:46 Novocain Allergy Unknown heart Verified 02/03/20 13:46 racing penicillin V Allergy Unknown rash Verified 02/03/20 13:46 Penicillins [PENICILLINS] Allergy Unknown RASH Verified 02/03/20 13:46 Septra DS Allergy Unknown rash Verified 02/03/20 13:46 sulfamethoxazole Allergy Unknown RASH Verified 02/03/20 13:46 [From SEPTRA DS] tetracycline [TETRACYCLINE] Allergy Unknown DIFFICULTY Verified 02/03/20 13:46 SWALLOWING, trouble swallowing, trouble swallowing trimethoprim [From SEPTRA DS] Allergy Unknown RASH Verified 02/03/20 13:46 Physical Exam Vital signs: Vital Signs Temp 98.0 F 02/03/20 13:36 Pulse 98 02/03/20 13:36 Resp 20 02/03/20 13:36 BP 134/63 02/03/20 13:36 Pulse Ox 98 02/03/20 13:36 Intake & Output 02/02/20 02/03/20 02/03/20 18:59 06:59 18:59 Other: Weight 69.5 kg Weight 69.5 kg - Constitutional Present: no acute distress - Routine HEENT Exam Head: Present: normal inspection Eye: Present: EOMI - Routine Neck Exam Present: supple. Absent: lymphadenopathy - Routine Chest/Breast/Axilla Exam Breast: Present: Normal Exam. Absent: induration, mass, swelling - Routine Respiratory Exam Present: CTAB - Routine Cardiovascular Exam Cardiovascular: Present: RRR, S1, S2 - Routine Abdominal Exam Present: normal bowel sounds, soft. Absent: mass, organomegaly - Routine Extremities Exam Present: full ROM, pulses intact. Absent: pedal edema - Routine Skin Exam Present: intact. Absent: cyanosis, erythema Assessment and Plan (1) Elevated C-reactive protein (CRP) Status: Acute 1. This is a 69-year-old woman with polymyalgia rheumatica and chronically elevated ESR. Her most recent ESR is 55, previously it was in the 20-30 range. Patient reports no symptoms from PMR, no constitutional symptoms. She has a history of pancreatic cysts and is followed by television maintenance man at [facility]. She underwent MRI abdomen 2 months ago and this was negative. She is overdue for screening mammogram and patient was advised to follow-up with this. She is up-to-date on colonoscopy. There is family history of breast and pancreatic cancer. One sister of pancreatic cancer at age 71 and another sister is being treated for breast cancer, she was diagnosed around age 70. A paternal aunt had colon cancer. She is 1 of 8 siblings, she reports no other cancer in her family. Today we discussed genetic counseling because of family history of 2 malignancies that is concerning for inherited breast/ovarian cancer syndrome. She has agreed and this is being arranged. Rest of for blood work and physical examination is normal. I thank you for this referral.
--- NOTE | 2020-02-03 15:12 | PC.NURSE ---
Patient completed genetic counseling. Information mailed to [employer]. Follow-up booked.
--- NOTE | 2020-02-24 18:07 | MHC.HEMONC ---
[facility] Request order - Received a fax from [employer] stating, ACTION NEEDED TEST ON HOLD....Please select one of the following options on the attached test form . Dr. Good checked off area stating: Please maintain my order of the [facility] myRisk test (33 genes not including BRCA 1/2) for patients who have not been previously tested. This order was signed and dated by Dr. Good and returned by fax to customer service @ as requested. Pt has f/up appt w Dr. Good in March,.
--- NOTE | 2020-03-03 12:01 | MHC.HEMONC ---
[facility] lab - Despite Dr. Good completing [facility] NEEDED REQUEST on 02/19/20 and faxing back to [employer], today she received a fax stating, The specified test has been canceled due to missing or insufficient information or documentation. Test order clarification not received. I have a call out to [employer] to inquire why canceled after we faxed needed information.
[2020-03-20 13:37] VITALS: BP 129/64; PULSE 93; RESP 18; TEMP 36.1; O2SAT 98; BMI 24.0
--- NOTE | 2020-03-20 14:11 | P.PNHO_ITS ---
Medical Summary - Medical Summary Date of Service: 03/20/20 Chief complaint: Follow-up Interval History Interval history: Patient is here in follow-up. She is doing well and has no complaints today. She denies any body pains or joint aches. No history of fever, chills, night sweats or unexplained weight loss. Her appetite is good. She denies any abnormal swelling in her axilla or groin regions. 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 Osteoporosis Paralysis, diaphragm Polymyalgia rheumatica Rhinitis Sarcoidosis of lung Family History: Family History (Last Reviewed 03/10/20 @ 10:28 by Анна Rod CMA) Father Emphysema lung Mother Aneurysm Emphysema lung Sister Chronic mental illness Celiac disease Breast cancer Family/Other Chronic mental illness Dementia Sister Pancreatic cancer Surgical History: Surgical History (Last Reviewed 03/10/20 @ 10:27 by Анна Rod CMA) Fatty tumor H/O breast surgery H/O dilation and curettage H/O: hysterectomy History of bronchoscopy History of neck surgery History of open reduction and internal fixation (ORIF) procedure History of total abdominal hysterectomy Hx of thyroidectomy S/P plication of diaphragm Status post spinal disc removal Smoking status: Never smoker Home Medications and Allergies Home Medications Medication Instructions Recorded Confirmed Type cyclosporine 0.05 % eye drops in a 1 drp OPHTHALMIC (EYE) BID 01/07/20 03/10/20 History dropperette ipratropium bromide 42 mcg (0.06 2 spray INTRANASAL TID PRN 01/07/20 03/10/20 History %) nasal spray levothyroxine 100 mcg tablet 100 mcg PO DAILY 01/07/20 03/10/20 History magnesium 250 mg tablet 250 mg PO DAILY 01/10/20 03/10/20 History cholecalciferol (vitamin D3) 50 mcg PO DAILY 02/03/20 03/10/20 History [Vitamin D3] dexamethasone See Rx Instructions .ROUTE .COMPLEX 02/03/20 03/10/20 History calcium carbonate 650 mg calcium 650 mg PO DAILY 03/10/20 03/10/20 History (1,625 mg) tablet Allergies Allergy/AdvReac Type Severity Reaction Status Date / Time adhesive [ADHESIVE BANDAGE] Allergy Unknown RASH,ERYTHE Verified 03/10/20 10:25 MA,BRUISING cephalexin [Keflex] Allergy Unknown Rash Verified 03/10/20 10:25 denosumab [From PROLIA] Allergy Unknown SEVERE Verified 03/10/20 10:25 MUSCLE PAIN epinephrine [EPINEPHRINE] Allergy Unknown POUNDING Verified 03/10/20 10:25 HEART/FEELS LIKE PASSING OUT ibuprofen [From MOTRIN] Allergy Unknown HIVES Verified 03/10/20 10:25 Motrin Allergy Unknown hives Verified 03/10/20 10:25 Novocain Allergy Unknown heart Verified 03/10/20 10:25 racing penicillin V Allergy Unknown rash Verified 02/03/20 13:46 Penicillins [PENICILLINS] Allergy Unknown RASH Verified 02/03/20 13:46 Septra DS Allergy Unknown rash Verified 02/03/20 13:46 sulfamethoxazole Allergy Unknown RASH Verified 02/03/20 13:46 [From SEPTRA DS] tetracycline [TETRACYCLINE] Allergy Unknown DIFFICULTY Verified 02/03/20 13:46 SWALLOWING, trouble swallowing, trouble swallowing trimethoprim [From SEPTRA DS] Allergy Unknown RASH Verified 02/03/20 13:46 Exam Vital signs: Vital Signs Temp 97.0 F 03/20/20 13:37 Pulse 93 03/20/20 13:37 Resp 18 03/20/20 13:37 BP 129/64 03/20/20 13:37 Pulse Ox 98 03/20/20 13:37 Intake & Output 03/19/20 03/20/20 03/20/20 18:59 06:59 18:59 Other: Weight 67.5 kg Weight 67.5 kg Body Mass Index 24.0 - Constitutional Present: no acute distress - Routine HEENT Exam Head: Present: normal inspection - Routine Neck Exam Present: full ROM. Absent: lymphadenopathy - Routine Chest/Breast/Axilla Exam Breast: Present: Normal Exam. Absent: mass, swelling, right mastectomy - Routine Respiratory Exam Present: CTAB - Routine Cardiovascular Exam Cardiovascular: Present: RRR, S1, S2 - Routine Abdominal Exam Present: normal bowel sounds, soft. Absent: mass, organomegaly - Routine Extremities Exam Present: full ROM, pulses intact. Absent: pedal edema - Routine Skin Exam Present: intact. Absent: cyanosis, erythema Progress Note: A/P (1) Elevated C-reactive protein (CRP) Status: Chronic Assessment and plan: 1. This is a 69-year-old woman with polymyalgia rheumatica and chronically elevated ESR. Her most recent ESR is 55, previously it was in the 20-30 range. Patient reports no symptoms from PMR, no constitutional symptoms. She has a history of pancreatic cysts and is followed by stove mounter at [facility]. She underwent MRI abdomen 2 months ago and this was negative. She is overdue for screening mammogram and patient was advised to follow-up with this. She is up-to-date on colonoscopy. Although her markers of inflammation are elevated, she is completely asymptomatic. I have advised her to have her blood work which is scheduled for end of this month. Genetic testing could not be performed on the last blood sample, she was offered repeat testing today. She declined this. Tele visit in 1 month to discuss results of blood work. - Time Spent With Patient Total time spent is greater than 50% in coordination of care (as documented) at patient's floor/unit and/or counseling patient: 15 - 24 minutes
== END | disposition home or self-care (01) ==
LOC: HO.ONC 02-03 13:22
PROVIDERS: PCP Internal Medicine; Referring Provider Student in an Organized Health Care Education/Training Program; Visit Provider Internal Medicine
DX: R70.0 Elevated erythrocyte sedimentation rate (principal); M35.3 Polymyalgia rheumatica; Z79.52 Long term (current) use of systemic steroids; Z80.3 Family history of malignant neoplasm of breast; Z80.0 Family history of malignant neoplasm of digestive organs
CPT/HCPCS: 99204; 99214

== ENCOUNTER 2024-02-05 13:16 | Outpatient (AMB) | payer MEDICARE, SELFPAY ==
[2024-02-05 13:22] VITALS: BP 124/68; PULSE 87; O2SAT 95; BMI 25.3
--- NOTE | 2024-02-05 13:22 | MHC.PC.OV ---
Vital Signs 02/05/24 13:22 Height 5 ft 6 in Weight 157 lb BMI 25.3 BP 124/68 Blood Pressure Location Lt brachial Position Sitting Pulse 87 Pulse Source Pulse Oximeter Pulse Oximetry (%) 95 Oxygen Delivery Method Room Air Intake Visit Reasons: Hypertension Allergies ibuprofen [From Motrin] Allergy (Intermediate, Verified 02/05/24 13:23) Hives adhesive [ADHESIVE BANDAGE] Allergy (Unknown, Verified 02/05/24 13:23) RASH,ERYTHEMA,BRUISING cephalexin [Keflex] Allergy (Unknown, Verified 02/05/24 13:23) Rash denosumab [From PROLIA] Allergy (Unknown, Verified 02/05/24 13:23) SEVERE MUSCLE PAIN epinephrine [EPINEPHRINE] Allergy (Unknown, Verified 02/05/24 13:23) POUNDING HEART/FEELS LIKE PASSING OUT Penicillins [PENICILLINS] Allergy (Unknown, Verified 02/05/24 13:23) RASH procaine [From Novocain] Allergy (Unknown, Verified 02/05/24 13:23) Heart racing sulfamethoxazole [From SEPTRA DS] Allergy (Unknown, Verified 02/05/24 13:23) RASH tetracycline [TETRACYCLINE] Allergy (Unknown, Verified 02/05/24 13:23) DIFFICULTY SWALLOWING, trouble swallowing, trouble swallowing trimethoprim [From SEPTRA DS] Allergy (Unknown, Verified 02/05/24 13:23) RASH hydrochlorothiazide Adverse Reaction (Intermediate, Verified 02/05/24 13:23) Headache lisinopril Adverse Reaction (Intermediate, Verified 02/05/24 13:23) Cough Tobacco use date assessed: 04/18/23 Fall risk assessment: No Falls in past year Last assessed Fall Risk: 02/05/24 Dental Screening Dental Screen Date: 04/18/23 HPI Hypertension HPI Details 73-year-old female with a history of polymyalgia rheumatica temporal arteritis pancreatic cyst ascending aortic aneurysm hypothyroidism hypertension coming in for follow-up. Last seen for wellness in July 30 patient's mammogram is up-to-date bone density up-to-date and colonoscopy up-to-date. Patient is being followed up by Rheumatology in the [facility] treatment [facility] seen in October 29 controlled giant cell arteritis and polymyalgia rheumatica of steroids and Actemra. Normal sed rate still elevated CRP. Continuing with physical therapy. 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 Lymphedema Osteoporosis Palpitations Paralysis, diaphragm Polymyalgia rheumatica Rhinitis Sarcoidosis of lung Surgical History Fatty tumor H/O breast surgery H/O dilation and curettage H/O: hysterectomy History of bronchoscopy History of neck surgery History of open reduction and internal fixation (ORIF) procedure History of total abdominal hysterectomy Hx of thyroidectomy S/P plication of diaphragm Status post spinal disc removal Family History Father Emphysema lung Mother Aneurysm Emphysema lung Sister Chronic mental illness Celiac disease Breast cancer Family/Other Chronic mental illness Dementia Sister Pancreatic cancer Social History (Updated 07/31/23 @ 14:11 by Donnie Corrales MD) Housing: House Alcohol intake: current Comment: glass of wine holidays Patient Tobacco Use Status: Never used Tobacco Tobacco use type: Cigarette Years Smoked: high school 4 years e-Cigarette/Vaping Use: Never Used Second Hand Smoke Exposure: No Advance Directives Date on File: 09/10/22 service: No Current occupational status: retired Cognitive needs: No Hearing needs: No Vision needs: Yes Questionnaire PHQ-9 Over the last 2 weeks, how often have you been bothered by any of the following problems? 1. Little interest or pleasure in doing things: not at all 2. Feeling down, depressed, or hopeless: not at all 3. Trouble falling or staying asleep, or sleeping too much: not at all 4. Feeling tired or having little energy: not at all 5. Poor appetite or overeating: not at all 6. Feeling bad about yourself - or that you are a failure or have let yourself or your family down: not at all 7. Trouble concentrating on things, such as reading the newspaper or watching television: not at all 8. Moving or speaking so slowly that other people could have noticed. Or the opposite - being so fidgety or restless that you have been moving around a lot more than usual: not at all 9. Thoughts that you would be better off or of hurting yourself in some way: not at all Total score: 0 Depression Screening Interpretation: Negative Depression Screening Done: Yes 70011 - PHQ-9 Billing: Patient declined-do not bill Source: Developed by Drs. Abran Goldsmith, Karin Landa, Mark Gilliam and colleagues, with an educational marlene from [employer]. Thrive Questionnaire Date Thrive assessed: 04/18/23 AUDIT C Alcohol Use Questionnaire (AUDIT-C) 1. How often do you have a drink containing alcohol?: Never 3. How often do you have six or more drinks on one occasion?: Never Total Score: 0 LEMUEL-7 AMB Questionnaire LEMUEL-7 Date LEMUEL - 7 assessed: 04/18/23 Source: Developed by Drs. Abran Goldsmith, Karin Landa, Mark Gilliam and colleagues, with an educational marlene from [employer]. Physical exam (Primary Care) Vital Signs: Last Vital Signs Pulse 87 02/05/24 13:22 BP 124/68 02/05/24 13:22 Pulse Ox 95 02/05/24 13:22 Oxygen Delivery Method Room Air 02/05/24 13:22 BMI result Body Mass Index 25.3 Tobacco/Smoking Status: Tobacco use Status Tobacco use date assessed 04/18/23 02/05/24 13:24 Patient Tobacco Use Status Never used Tobacco 02/05/24 13:24 Tobacco use type Cigarette 02/05/24 13:24 e-Cigarette/Vaping Use Never Used 02/05/24 13:24 PHQ-9: PHQ-9 Score PHQ-9: Total score 0 02/05/24 13:24 Depression Screening Interpretation: Negative Thrive Assessment: Date of Thrive Assessment Date Thrive assessed 04/18/23 02/05/24 13:24 Const General: alert; No acute distress Eyes Conjunctivae: conjunctivae normal Resp Auscultation: clear to auscultation bilaterally Cardio Rate: regular rate Rhythm: regular rhythm GI Inspection: Yes normal to inspection Extrem General: Yes normal to inspection and No edema Coding Level of Care Code Est Pt Level 4 (68973) Diagnoses Polymyalgia rheumatica M35.3 Pancreatic cyst K86.2 Aneurysm of ascending aorta without rupture I71.21 Presence of rupture: without rupture Hypothyroidism due to Ermias's thyroiditis E03.8; E06.3 Hypothyroidism type: due to Ermias's thyroiditis Primary hypertension I10 Hypertension type: primary hypertension Assessment & Plan Assessment & Plan (1) Polymyalgia rheumatica: Comment: Two thousand seventeen Code(s): M35.3 - Polymyalgia rheumatica Category: Medical Plan: Rheumatology notes appreciated and continue to monitor. Off steroids and Actemra stable (2) Pancreatic cyst: Comment: multiple 12/20/2021, 01/2023 Code(s): K86.2 - Cyst of pancreas Category: Medical Plan: Planned MRI in 2024. but was scheduled for next week (3) Ascending aortic aneurysm: Comment: 2020, Dr. Chun thoracic aortic aneurysm 4.2 cm 2022, CT chest 12/2023 4.3 cm Code(s): I71.2 - Thoracic aortic aneurysm, without rupture Category: Medical Qualifiers: Presence of rupture: without rupture Qualified Code(s): I71.21 - Aneurysm of the ascending aorta, without rupture Plan: Continue to monitor. seeing Dr. Chun (4) Hypothyroidism: Comment: March 2022 Code(s): E03.9 - Hypothyroidism, unspecified Category: Medical Qualifiers: Hypothyroidism type: due to Ermias's thyroiditis Qualified Code(s): E03.8 - Other specified hypothyroidism; E06.3 - Autoimmune thyroiditis Plan: Continue with thyroid medication last blood work was in 05/02/2023 (5) Hypertension: Comment: Lisinopril taken off due to cough Code(s): I10 - Essential (primary) hypertension Category: Medical Qualifiers: Hypertension type: primary hypertension Qualified Code(s): I10 - Essential (primary) hypertension Plan: Continue with blood pressure medication. Decrease salt intake and exercise on amlodipine 5 mg once a day and losartan 100 mg once a day Orders: Orders Free T4 (Free Thyroxine) Today E03.8 - Other specified hypothyroidism, E06.3 - Autoimmune thyroiditis Thyroid Stimulating Hormone Today E03.8 - Other specified hypothyroidism, E06.3 - Autoimmune thyroiditis Vitamin B12 and Folate Today E03.8 - Other specified hypothyroidism, E06.3 - Autoimmune thyroiditis Vitamin D 25-OH Total Today E03.8 - Other specified hypothyroidism, E06.3 - Autoimmune thyroiditis C Reactive Protein Today M35.3 - Polymyalgia rheumatica Complete Blood Count Auto Diff Today E03.8 - Other specified hypothyroidism, E06.3 - Autoimmune thyroiditis Comprehensive Met. Panel Today E03.8 - Other specified hypothyroidism, E06.3 - Autoimmune thyroiditis Lipid Panel Today E03.8 - Other specified hypothyroidism, E06.3 - Autoimmune thyroiditis, E78.00 - Pure hypercholesterolemia, unspecified Erythrocyte Sedimentation Rate Today M35.3 - Polymyalgia rheumatica
== END 2024-02-05 14:09 | disposition home or self-care (01) ==
PROVIDERS: PCP Internal Medicine; Visit Provider Internal Medicine
DX: M35.3 Polymyalgia rheumatica (principal); K86.2 Cyst of pancreas; I71.21 Aneurysm of the ascending aorta, without rupture; E03.8 Other specified hypothyroidism; E06.3 Autoimmune thyroiditis; I10 Essential (primary) hypertension

== ENCOUNTER → 2024-02-05 13:16 | Outpatient (BNVA) | payer MEDICARE, SELFPAY | PROVIDERS: PCP Internal Medicine; Visit Provider Internal Medicine | DX: M35.3 Polymyalgia rheumatica (principal); K86.2 Cyst of pancreas; I71.21 Aneurysm of the ascending aorta, without rupture; E03.8 Other specified hypothyroidism; E06.3 Autoimmune thyroiditis; I10 Essential (primary) hypertension | CPT/HCPCS: 96127; 99212 ==

== ENCOUNTER 2024-02-20 08:08 | Outpatient (REF) | payer MEDICARE, SELFPAY ==
[2024-02-20 08:37] LABS: MANUAL DIFF FLAG NO
[2024-02-20 08:47] LABS: Basophils Percent Auto 0.7 % (0-2); Eosinophils Absolute Auto 0.2 X10*3/uL (0.0-0.4); Eosinophils Percent Auto 2.8 % (0-4); Hematocrit 37.6 % (37.0-47.0); Hemoglobin 12.3 g/dl (12.0-16.0); Imm Gran Abs Auto 0.02 X10*3/uL (0.00-0.03); Imm Gran Pct Auto 0.3 % (0.0-0.4); Lymphocytes Absolute Auto 2.3 X10*3/uL (1.2-4.9); Lymphocytes Percent Auto 38.9 % (20-40); Mean Corpuscular HGB Conc 32.7 g/dl (31.0-35.0); Mean Corpuscular Hemoglobin 27.3 pg (27.0-33.0); Mean Corpuscular Volume 83.4 fL (80.0-98.0); Mean Platelet Volume 9.9 fL (9.4-12.3); Monocytes Absolute Auto 0.4 X10*3/uL (0.1-1.2); Monocytes Percent Auto 6.3 % (2-11); Neutrophils Absolute Auto 3.1 x10*3/uL (2.0-8.3); Platelet Count 276 X10*3/uL (160-400); Red Blood Count 4.51 X10*6/uL (4.20-5.50); Red Cell Distribution Width 14.2 % (11.0-16.0)
[2024-02-20 09:17] LABS: Alanine Aminotransferase 20 U/L (0-31); Albumin Level 4.1 g/dL (3.5-5.0); Alkaline Phosphatase 116 U/L (39-117); Anion Gap 10 (12-20); Aspartate Amino Transferase 19 U/L (5-31); Bilirubin Total 0.3 mg/dL (0.0-1.0); Blood Urea Nitrogen 14 mg/dL (9-16); Calcium 9.3 mg/dL (8.4-10.2); Carbon Dioxide 28 mmol/L (22-29); Chloride 104 mmol/L (96-108); Cholesterol 205 mg/dL (<200); Estimated Glomerular Filt Rate > 60; Glucose Random 100 mg/dL (60-115); HDL Cholesterol 69 mg/dL (>40); LDL Cholesterol Calculated 116 mg/dL (<100); Potassium 4.3 mmol/L (3.3-5.1); Sodium 138 mmol/L (135-145); Total Protein 7.3 g/dL (6.5-8.0); Triglycerides 104 mg/dL (<150)
[2024-02-20 09:27] LABS: Erythrocyte Sedimentation Rate 23 MM/HR (0-20); Free T4 (Free Thyroxine) 1.44 ng/dL (0.71-1.85); Vitamin D 25-OH Total 37.8 ng/mL (>30)
[2024-02-20 09:52] LABS: Folate 8.1 ng/mL (> or = 4.0); Vitamin B12 323 pg/mL (200-900)
--- OUTSIDE RECORDS SUMMARY | 2024-02-21 18:44 | XMS_ITS | Continuity of Care Document ---
Author Organization [facility] Address [address] [place] [address] [place] [address]- Care Team Providers Care Orange Peel Operator Name Role Phone Donnie Corrales MD Primary Care Physician Encounter [facility] Date(s): 12/27/23 - 01/26/24 [facility] [address] [place] [address] Drive [address] [place] [address]- Encounter Type: Triage Allergies, Adverse Reactions, Alerts Substance Criticality Severity Reaction Reaction Severity Status tetracycline closes my throat Active EPINEPHrine POUNDING HEART/ FEELS LIKE PASSES OUT Active penicillins rash Active sulfa drugs rash Active Motrin hives Active Adhesive Bandage rashes Erythema and bruising Active Immunizations Given and Recorded Vaccine Date Status Refusal Reason influenza virus vaccine, inactivated 1 02/17/16 Gi jared 1Admin Note: [facility] GIVEN high dose Medications amLODIPine 2.5 mg oral tablet 2.5 mg, 1, tablet, By Mouth, Daily, Refills 0, Maintenance, 02/28/23 8:56:00 AM EST, Partial fill upon patient request if the prescription is for a schedule II opioid drug. Start Date: 02/28/23 Status: Ordered Repeat number: 1 Ipratropium [place] 0.067 Ipratropium [place] 0.067, Refills 0, Maintenance, pt does up to 3 times a day, 02/17/17 1:19:56 PM EST, Compound Start Date: 02/17/17 Status: Ordered Repeat number: 1 levothyroxine 0.088 mg oral tablet 1 tablet = 88 mcg, By Mouth, Daily, # 90 tablet, 1 Refills, Maintenance, 02/20/23 6:28:00 AM EST, Tablet, [id number], 862.7, cm, 03/29/22 10:35:00 EST, Height Start Date: 02/20/23 Status: Ordered Quantity: 90.0 Unit: tablet Repeat number: 2 losartan 100 mg oral tablet 1 tablet = 100 mg, By Mouth, Daily, 0 Refills, Maintenance, 02/28/23 8:55:00 AM EST, Partial fill upon patient request if the prescription is for a schedule II opioid drug. Start Date: 02/28/23 Status: Ordered Repeat number: 1 Magnesium Magnesium, 250 mg, By Mouth, Daily, Refills 0, Maintenance, 02/17/17 1:23:44 PM EST, Compound Start Date: 02/17/17 Status: Ordered Repeat number: 1 PreserVision AREDS 2 oral capsule 1 capsule, By Mouth, 2 times a day, 0 Refills, Maintenance, 07/10/23 11:24:00 AM EDT, Capsule, Partial fill upon patient request if the prescription is for a schedule II opioid drug. Start Date: 07/10/23 Status: Ordered Repeat number: 1 Restasis 0.05% ophthalmic emulsion 1 drops, Eyes, Both, Every 12 hours, 0 Refills, Maintenance, 07/21/15 3:01:06 PM EDT Start Date: 07/21/15 Status: Ordered Repeat number: 1 senna - oral tablet 1 tablet, By Mouth, Daily, 0 Refills, Maintenance, 02/28/23 8:56:00 AM EST, Partial fill upon patient request if the prescription is for a schedule II opioid drug. Start Date: 02/28/23 Status: Ordered Repeat number: 1 Vitamin D3 = 1,000 International_Units, By Mouth, Daily, 0 Refills, Maintenance, 02/17/17 1:56:46 PM EST Start Date: 02/17/17 Status: Ordered Repeat number: 1 Problem List Condition Confirmation Course Effective Dates Status H ealth Status Informant Acquired hypothyroidism Confirmed Active Aortic aneurysm Confirmed Active History of small bowel obstruction Confirmed Active Diaphragm hemiparalysis Confirmed Active PMR (polymyalgia rheumatica) Confirmed Active Sarcoidosis of lung Confirmed Active Sicca syndrome Confirmed Active Giant cell arteritis Confirmed Active Social History Social History Type Response Smoking Status Former smoker entered on: 01/13/15 Sex Sex Representation Female (finding) Patient Care team information Care Team Personnel Name: Donnie Corrales MD Position: Reference Physician Member Role: PCP Address: [address] [place] [id number] Telecom: Care Team Related Persons Name: HAYDEE TURCIOS Insurance Providers Guarantor name: JEWEL TURCIOS Health Plan Information #: 1 Payer: MEDICARE PART B OUTPT Member Number: NA Policy Number: NA Group Number: NA Health Plan Information #: 2 Payer: MEDEX Member Number: NA Policy Number: NA Group Number: NA
--- OUTSIDE RECORDS SUMMARY | 2024-02-21 18:44 | XMS_ITS | Continuity of Care Document ---
Author Organization [facility] Address [address] [place] [id number]- Care Team Providers Care Milieu Manager Name Role Phone Po Donnie MERRITT Primary Care Physician [phone] Encounter [facility] Date(s): 12/26/23 - 01/25/24 [facility] [address] [place] [address]- Encounter Type: Triage Allergies, Adverse Reactions, Alerts Substance Criticality Severity Reaction Reaction Severity Status tetracycline closes my throat Active EPINEPHrine POUNDING HEART/ FEELS LIKE PASSES OUT Active penicillins rash Active sulfa drugs rash Active Motrin hives Active Adhesive Bandage rashes Erythema and bruising Active Immunizations Given and Recorded Vaccine Date Status Refusal Reason influenza virus vaccine, inactivated 1 02/17/16 Gi jared 1Admin Note: [facility] GIVEN high dose Medications amLODIPine 2.5 mg oral tablet 2.5 mg, 1, tablet, By Mouth, Daily, Refills 0, Maintenance, 02/28/23 8:56:00 AM EST, Partial fill upon patient request if the prescription is for a schedule II opioid drug. Start Date: 02/28/23 Status: Ordered Repeat number: 1 Ipratropium [place] 0.067 Ipratropium [place] 0.067, Refills 0, Maintenance, pt does up to 3 times a day, 02/17/17 1:19:56 PM EST, Compound Start Date: 02/17/17 Status: Ordered Repeat number: 1 levothyroxine 0.088 mg oral tablet 1 tablet = 88 mcg, By Mouth, Daily, # 90 tablet, 1 Refills, Maintenance, 02/20/23 6:28:00 AM EST, Tablet, [id number], 168.7, cm, 03/29/22 10:35:00 EST, Height Start Date: [...] Position: Reference Physician Member Role: PCP Address: [address] [place] [address]- Telecom: Care Team Related Persons Name: HAYDEE TURCIOS Insurance Providers Guarantor name: JEWEL TURCIOS Health Plan Information #: 1 Payer: MEDICARE PART B OUTPT Member Number: NA Policy Number: NA Group Number: NA Health Plan Information #: 2 Payer: MEDEX Member Number: NA Policy Number: NA Group Number: NA
== END 2024-02-20 08:09 | disposition home or self-care (01) ==
LOC: HO.LAB 08:08
PROVIDERS: PCP Internal Medicine; Visit Provider Internal Medicine
DX: E03.8 Other specified hypothyroidism (principal); E06.3 Autoimmune thyroiditis; M35.3 Polymyalgia rheumatica; E78.00 Pure hypercholesterolemia, unspecified
CPT/HCPCS: 36415; 80053; 80061; 82306; 82607; 82746; 84439; 84443; 85025; 85652; 86140

== ENCOUNTER 2024-05-03 13:37 | Outpatient (REF) | payer MEDICARE, SELFPAY ==
--- OUTSIDE RECORDS SUMMARY | 2024-05-03 14:07 | XMS_ITS | Clinical Summary ---
Author Organization [facility] Address [id number] [place] [id number] Care Team Providers Care Daytime Caregiver Name Role Phone Unavailable Primary Care Provider Unavailabl e Social History Tobacco Use Types Packs/Day Years Used Date Smoking Tobacco: Never Assessed Comments Unknown Sex and Gender Information Value Date Recorded Sex Assigned at Not on file Legal Sex Female 4:44 AM EST Gender Identity Not on file Sexual Orientation Not on file Plan of Treatment Health Maintenance Due Date Last Done Comments DTaP,Tdap,and Td Vaccines (1 - Tdap) 1967 Pneumococcal Vaccine: 50+ Ye ars (1 of 1 - PCV) 1998 Zoster Vaccines (1 of 2) 1998 RSV Immunization Patients 60 + Years Old (1 - 1-dose 75+ series) 2023 COVID-19 Vaccine ( - 2023-2 5 season) 2023 Influenza Vaccine (#1) 2023 HIB Vaccines Aged Out No longer eligi ble based on patient's age to complete this topic HPV Vaccines Aged Out No longer eligi ble based on patient's age to complete this topic Hepatitis A Vaccines Aged Out No long er eligible based on patient's age to complete this topic Hepatitis B Vaccines Aged Out No long er eligible based on patient's age to complete this topic IPV Vaccines Aged Out No longer eligi ble based on patient's age to complete this topic MMR Vaccines Aged Out No longer eligi ble based on patient's age to complete this topic Meningococcal ACWY Vaccine Aged Out N o longer eligible based on patient's age to complete this topic Meningococcal B Vacine Aged Out No lo nger eligible based on patient's age to complete this topic RSV Immunization Patients Un faizan 20 months Aged Out No longer eligible b ased on patient's age to complete this topic Varicella Vaccines Aged Out No longer eligible based on patient's age to complete this topic
== END 2024-05-03 13:38 | disposition home or self-care (01) ==
LOC: HO.MAMMO 13:37
PROVIDERS: PCP Internal Medicine; Visit Provider Internal Medicine
DX: Z12.31 Encounter for screening mammogram for malignant neoplasm of breast (principal)
CPT/HCPCS: 77063; 77067

== ENCOUNTER → 2024-05-03 13:45 | Outpatient (BNV) | payer MEDICARE, SELFPAY | PROVIDERS: PCP Internal Medicine; Visit Provider Internal Medicine | DX: Z12.31 Encounter for screening mammogram for malignant neoplasm of breast (principal) | CPT/HCPCS: 77063; 77067 ==

== ENCOUNTER 2024-10-31 14:43 | Outpatient (AMB) | payer MEDICARE, SELFPAY ==
--- OUTSIDE RECORDS SUMMARY | 2019-10-30 | XMS_ITS | Encounter Summary ---
Author Organization [facility] Address [address] [place] [address] Phone Care Team Providers Care Lead Nurse Name Role Phone Nahomy Ortiz MD Primary Care Provid er Louis Moody MD Unavailable Encounter Details Date Type Department Care Team (Late st Contact Info) Description 10/30/2019 Hospital Encounter [facility] [address] [place] [phone] Rasheed Moody MD [address] [place] [address] [email or web address] Social History Tobacco Use Types Packs/Day Years [...] on filedocumented in this encounter Care Teams Lead Nurse Relationship Specialty Start Date End Date Nahomy Ortiz MD 5 [place] [address] PCP - General Internal Medicine 03/21/18 Louis Moody MD [address] [place] [address] Vascular Surgery 06/04/18 documented as of this encounter Additional Source Comments The information contained in this document represents components of the legal health record. It is not the complete legal health record.[facility]
--- OUTSIDE RECORDS SUMMARY | 2024-10-31 14:48 | XMS_ITS | Clinical Summary ---
Author Organization [facility] Address [address] [place] [id number] Care Team Providers Care Assistant Professor In Family Studies Name Role Phone Unavailable Primary Care Provider [...] Vaccines (1 of 2) 1998 RSV Immunization Adult Patie nts (1 - 1-dose 75+ series) 2023 COVID-19 Vaccine (1 - 2023-2 5 season) 2023 Depression Screening 03/13/2024 Influenza Vaccine (#1) 2024 HIB Vaccines Aged Out No longer eligi [...] age to complete this topic Meningococcal B Vaccine Aged Out No l onger eligible based on patient's age to complete this topic RSV Immunization Patients Un faizan 20 months Aged Out No longer eligible b ased on patient's age to complete this topic Varicella Vaccines Aged Out No longer eligible based on patient's age to complete this topic
--- OUTSIDE RECORDS SUMMARY | 2024-10-31 14:49 | XMS_ITS | Patient Health Record ---
Author Organization [facility] Address [address] [place] [address] Care Team Providers Care Compliance Coordinator Name Role Phone Erinn(inactive) Bay MERRITT Primary Care Provider U Jez Nj Jr Unavailable Allergies Allergen (clinical drug ingredient) Drug/Non Drug Allergy documented on EMR Reaction Allergy Type Onset Date Status novacaine Unknown Drug Allergy Active Penicillin Unknown Drug Allergy Active tetracycline Tetracycline HCl Unknown Drug Allergy Active Septra DS Unknown Drug Allergy Active Motrin Unknown Drug Allergy Active Reason For Referral No Information Medications Medication SIG (Take, Route, Frequency, Duration) Notes Start Date End Date Status MoviPrep 100 GM as directed Orally 08/17/2012 Active Colyte with Flavor Packs 240 GM as directed Orally as directed for 1 dose 12/20/2012 Active Restasis 0.05% Activ e Synthroid .088mg 03/13/2024 03/13/2024 A ctive Ipratropium [place] 0.06% Active Problems Problem Type SNOMED Code ICD Code Onset Dates Problem Status W/U Status Risk Notes Problem Constipation (39261625) Constipation (564.00) Active confirmed Problem Colon cancer screening (086577310) Colon cancer screening (V76.51) Active confirmed Plan Of Treatment Future Test Test Name Order Date COLONOSCOPY 08/17/2012 Insurance Providers Payer Name Payer Address Payer Phone Subscriber Number Group Number Insured Name Patient Relationship to Insured Coverage Start Date Coverage End Date [facility] BCBS PROFESSIONAL CLAIMS [address] [place] [address] [phone] [id number] JEWEL MANDUJANO Self - patient is the insured Medical (General) History Medical History History ICD Code hypothyroidism xerophthalmia Surgical History Surgery Date(Month/Year) hysterectomy 1972 breast biopsy 1984 disc surgery 1986
[2024-10-31 15:11] VITALS: BP 138/66; PULSE 69; TEMP 36.2; O2SAT 99; BMI 25.0
--- NOTE | 2024-10-31 15:11 | MHC.PC.OV ---
Vital Signs 10/31/24 15:11 10/31/24 15:25 Height 5 ft 6 in Weight 155 lb 2 oz BMI 25.0 BP 138/66 120/70 Blood Pressure Location Lt brachial Lt brachial Position Sitting Sitting Pulse 69 Pulse Source Pulse Oximeter Temp 97.1 F Temp Source Temporal Artery Scan Pulse Oximetry (%) 99 Oxygen Delivery Method Room Air Intake Visit Reasons: PE Allergies ibuprofen (From Motrin) Allergy (Intermediate, Verified 10/31/24 15:13) Hives adhesive (ADHESIVE BANDAGE) Allergy (Unknown, Verified 10/31/24 15:13) RASH,ERYTHEMA,BRUISING cephalexin (Keflex) Allergy (Unknown, Verified 10/31/24 15:13) Rash denosumab (From PROLIA) Allergy (Unknown, Verified 10/31/24 15:13) SEVERE MUSCLE PAIN epinephrine (EPINEPHRINE) Allergy (Unknown, Verified 10/31/24 15:13) POUNDING HEART/FEELS LIKE PASSING OUT Penicillins (PENICILLINS) Allergy (Unknown, Verified 10/31/24 15:13) RASH procaine (From Novocain) Allergy (Unknown, Verified 10/31/24 15:13) Heart racing sulfamethoxazole (From SEPTRA DS) Allergy (Unknown, Verified 10/31/24 15:13) RASH tetracycline (TETRACYCLINE) Allergy (Unknown, Verified 10/31/24 15:13) DIFFICULTY SWALLOWING, trouble swallowing, trouble swallowing trimethoprim (From SEPTRA DS) Allergy (Unknown, Verified 10/31/24 15:13) RASH hydrochlorothiazide Adverse Reaction (Intermediate, Verified 10/31/24 15:13) Headache lisinopril Adverse Reaction (Intermediate, Verified 10/31/24 15:13) Cough Medication List - Last Reconciled 10/31/24 by Donnie Corrales MD amlodipine 5 mg PO DAILY cholecalciferol (vitamin D3) 50 mcg PO DAILY cyclosporine 0.05% (Restasis) 1 drp ophthalmic (eye) BID ipratropium bromide 2 sprays intranasal TID PRN 90 days levothyroxine 88 mcg PO DAILY losartan 100 mg PO DAILY sennosides-docusate sodium 8.6-50 mg (Stimulant Laxative Plus) 2 tabs PO BEDTIME [stair lift As directed] vitamins A,C,F-dhor-jstcnp 2,148 mcg-113 mg-45 mg-17.4mg (PreserVision AREDS) 2 tabs PO BID Tobacco use date assessed: 10/31/24 Fall risk assessment: No Falls in past year Last assessed Fall Risk: 10/31/24 Dental Screening Dental Screen Date: 10/31/24 Did you have a dental visit in the last 12 months?: Yes Did you have a dental problem in the last 6 months where you did not have access to dental care?: No Was dental information given to patient?: Patient has dentist HPI PE HPI Details lightheadedness, PFSH Medical History (Updated 10/31/24 @ 15:48 by Donnie Corrales MD) Lymphedema Palpitations H/O one miscarriage Collapsed lung Paralysis, diaphragm Ascending aortic aneurysm Sarcoidosis of lung Ermias's disease machine i cutter systemic steroid user Osteoporosis Polymyalgia rheumatica Hypothyroidism Rhinitis Surgical History (Updated 10/31/24 @ 15:48 by Donnie Corrales MD) S/P plication of diaphragm Hx of thyroidectomy History of bronchoscopy Status post spinal disc removal H/O: hysterectomy H/O dilation and curettage Fatty tumor History of open reduction and internal fixation (ORIF) procedure History of neck surgery H/O breast surgery History of total abdominal hysterectomy Family History Father Emphysema lung Mother Aneurysm Emphysema lung Sister Chronic mental illness Celiac disease Breast cancer Family/Other Chronic mental illness Dementia Sister Pancreatic cancer Social History Housing: House Alcohol intake: current Comment: glass of wine holidays Patient Tobacco Use Status: Never used Tobacco Tobacco use type: Cigarette Years Smoked: high school 4 years e-Cigarette/Vaping Use: Never Used Second Hand Smoke Exposure: No Advance Directives Date on File: 09/10/22 service: No Current occupational status: retired Cognitive needs: No Hearing needs: No Vision needs: Yes Questionnaire PHQ-9 Over the last 2 weeks, how often have you been bothered by any of the following problems? 1. Little interest or pleasure in doing things: not at all 2. Feeling down, depressed, or hopeless: not at all 3. Trouble falling or staying asleep, or sleeping too much: not at all 4. Feeling tired or having little energy: not at all 5. Poor appetite or overeating: not at all 6. Feeling bad about yourself - or that you are a failure or have let yourself or your family down: not at all 7. Trouble concentrating on things, such as reading the newspaper or watching television: not at all 8. Moving or speaking so slowly that other people could have noticed. Or the opposite - being so fidgety or restless that you have been moving around a lot more than usual: not at all 9. Thoughts that you would be better off or of hurting yourself in some way: not at all Total score: 0 Depression Screening Interpretation: Negative Depression Screening Done: Yes 35379 - PHQ-9 Billing: Patient declined-do not bill Source: Developed by Drs. Abran Goldsmith, Karin Landa, Mark Gilliam and colleagues, with an educational marlene from [employer]. Thrive Questionnaire Date Thrive assessed: 04/18/23 What is your living situation today?: I choose not to answer this question Within the past 12 months, did the food you bought not last and you didn't have the money to get more?: I choose not to answer this question Within the past 12 months, did you worry whether your food would run out before you got money to buy more?: I choose not to answer this question Do you have trouble paying for medicines?: I choose not to answer this question Do you have trouble getting transportation to medical appointments?: I choose not to answer this question Do you have trouble paying your heating and electricity bill?: I choose not to answer this question Do you have trouble taking care of your child, family member or friend?: I choose not to answer this question Do you have trouble with day-to-day activities such as bathing, preparing meals, shopping, managing finances, etc.?: I choose not to answer this question Are you currently unemployed and looking for a job?: I choose not to answer this question Are you interested in more education?: I choose not to answer this question Currently or been in a relationship where the following occur: I choose not to answer THRIVE Score: 0 AUDIT C Alcohol Use Questionnaire (AUDIT-C) 1. How often do you have a drink containing alcohol?: Never 3. How often do you have six or more drinks on one occasion?: Never Total Score: 0 LEMUEL-7 AMB Questionnaire LEMUEL-7 Date LEMUEL - 7 assessed: 04/18/23 Source: Developed by Drs. Abran Goldsmith, Karin Landa, Mark Gilliam and colleagues, with an educational marlene from [employer]. Review of Systems Const Denies poor appetite and Denies weakness Eyes Denies no additional complaints ENT Reports Normal hearing present, Denies dizziness, Denies nasal congestion, Denies tinnitus and Denies sore throat Card Denies chest pain, Denies syncope, Denies rapid heart rate and Denies dyspnea Resp Denies cough and Denies dyspnea GI Denies change in stool character, Reports constipation, Denies diarrhea, Denies nausea and Denies vomiting Denies urinary frequency, Denies difficulty voiding and Denies dysuria Neuro Reports Normal hearing present, Denies confusion, Denies dizziness, Denies syncope and Denies weakness Psych Denies confusion Physical exam (Primary Care) Vital Signs: Last Vital Signs Temp 97.1 F 10/31/24 15:11 Pulse 69 10/31/24 15:11 BP 120/70 10/31/24 15:25 Pulse Ox 99 10/31/24 15:11 Oxygen Delivery Method Room Air 10/31/24 15:11 BMI result Body Mass Index 25.0 Tobacco/Smoking Status: Tobacco use Status Tobacco use date assessed 10/31/24 10/31/24 15:15 Patient Tobacco Use Status Never used Tobacco 10/31/24 15:15 Tobacco use type Cigarette 10/31/24 15:15 e-Cigarette/Vaping Use Never Used 10/31/24 15:15 PHQ-9: PHQ-9 Score PHQ-9: Total score 0 10/31/24 15:38 Depression Screening Interpretation: Negative Thrive Assessment: Date of Thrive Assessment Date Thrive assessed 04/18/23 10/31/24 15:15 Currently or been in a relationship where the following occur: I choose not to answer Const General: No confusion Orientation/consciousness: No confusion HENMT Head: Yes normocephalic Ears: external ears normal and TM's normal bilaterally Face and sinus: Yes normal facial exam Mouth: moist mucous membranes Throat: Yes tonsils normal Eyes Conjunctivae: conjunctivae normal Pupils: Equal, round and reactive pupils present and Pupil accommodation reflex normal Direct Ophthalmoscopy: normal light reflex Neck Neck: No lymphadenopathy Thyroid: Thyroid normal Chest Chest palpation & inspection: normal inspection of the chest Resp Effort & Inspection: normal respiratory effort and no audible wheezes Auscultation: clear to auscultation bilaterally, no crackles, no wheezes and lung sounds not diminished Cardio Rate: regular rate Rhythm: regular rhythm Peripheral pulses: radial pulses present and dorsalis pedis present GI Palpation (GI): no masses Auscultation: normal bowel sounds and normoactive bowel sounds Rectal Exam - Female: deferred Abdomen image:  1. 1 cm mass noted with yellowish tip mild erythema with mild tenderness 2. 1 cm mass soft noted with no erythema and nontender Skin General skin exam: no rashes or lesions noted Rashes: no rashes Neuro General: No confusion Cranial nerves: Yes Equal, round and reactive pupils present and Yes Normal hearing present Cognition (Neuro): normal cognition Gait exam (Neuro): Normal gait present Motor exam (neuro): 5/5 motor strength present throughout Deep tendon reflexes (DTR's): Right brachioradialis reflex intensity grade: 2+, Left brachioradialis reflex intensity grade: 2+, Right patellar reflex intensity grade: 2+ and Left patellar reflex intensity grade: 2+ Extrem General: No edema Coding Level of Care Code Est Pt Prev Care >65y(39987) Diagnoses Annual physical exam Z00.00 Polymyalgia rheumatica M35.3 Lymphedema I89.0 Age-related osteoporosis without current pathological fracture M81.0 Osteoporosis type: age-related Presence of current pathological fracture: without current pathological fracture 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 (2) Polymyalgia rheumatica: Comment: Two thousand seventeen Code(s): M35.3 - Polymyalgia rheumatica Category: Medical Plan: Stable (3) Lymphedema: Code(s): I89.0 - Lymphedema, not elsewhere classified Category: Medical Plan: When sitting down elevate the legs, exercise, and support stockings (4) Osteoporosis: Comment: February Code(s): M81.0 - Age-related osteoporosis without current pathological fracture Category: Medical Qualifiers: Osteoporosis type: age-related Presence of current pathological fracture: without current pathological fracture Qualified Code(s): M81.0 - Age-related osteoporosis without current pathological fracture Plan: Up-to-date with bone density discussed about calcium and vitamin-D (5) Hypothyroidism: Comment: March 2022 Code(s): E03.9 - Hypothyroidism, unspecified Category: Medical Qualifiers: Hypothyroidism type: due to Ermias's thyroiditis Qualified Code(s): E03.8 - Other specified hypothyroidism; E06.3 - Autoimmune thyroiditis Plan: Continue with thyroid medication February blood work (6) Ascending aortic aneurysm: Comment: 2020, Dr. Chun thoracic aortic aneurysm 4.2 cm 2022, CT chest 12/2023 4.3 cm Code(s): I71.2 - Thoracic aortic aneurysm, without rupture Category: Medical Qualifiers: Presence of rupture: without rupture Qualified Code(s): I71.21 - Aneurysm of the ascending aorta, without rupture Plan: This is continued to be followed up December 2023 last test (7) Hypertension: Comment: Lisinopril taken off due to cough Code(s): I10 - Essential (primary) hypertension Category: Medical Qualifiers: Hypertension type: primary hypertension Qualified Code(s): I10 - Essential (primary) hypertension Plan: Continue with blood pressure medication. Decrease salt intake and exercise on losartan 100 mg once a day and amlodipine 5 mg once a day (8) SOB (shortness of breath) on exertion: Code(s): R06.02 - Shortness of breath Category: Medical (9) Sebaceous cyst: Comment: pelvic area Code(s): L72.3 - Sebaceous cyst Category: Medical (10) Fatty tumor: Comment: 2009 Fatty tumor removed under right arm pit, right near breast, benign 10/2024 R arm Code(s): D17.9 - Benign lipomatous neoplasm, unspecified Category: Surgical Plan History of Present Illness The patient is a 74-year-old female presenting for a physical examination and management of chronic conditions. The patient has a history of lymphedema, which has been a persistent issue. She also has an ascending aortic aneurysm, with the last CT scan performed in December 2023, showing stability at 4.2 to 4.3 cm, not in the danger zone. Polymyalgia rheumatica and hypothyroidism are part of her medical history, with ongoing management through medication. She continues to take thyroid medication as part of her treatment regimen. Hypertension is managed with losartan 100 mg and amlodipine 5 mg daily. Her blood pressure readings have been stable, with recent measurements around 120/70 mmHg. The patient reports a history of urinary retention, but no new episodes have been noted since the last visit. She experiences hearing loss, having had a hearing test last year, but is not ready for hearing aids. The patient reports shortness of breath on exertion, which has not worsened significantly since her last evaluation. She uses a stair lift to manage her symptoms and avoid exacerbation. Fatigue is a persistent issue, with the patient feeling tired most of the time. She occasionally experiences swallowing difficulties, particularly when consuming certain foods. The patient has a cyst that has burst and drained previously, causing discomfort. She also has a lipoma, which is being monitored. She has a history of allergic reactions to multiple medications, including sulfa drugs and penicillin. Nosebleeds have occurred twice in the past six months, possibly related to dry air or nasal sprays. Health Maintenance - Mammogram and bone density tests are up to date. - Colonoscopy was last performed in June 2023. - Blood work in February 2024 showed normal results except for mildly elevated blood sugar at 100 mg/dL. - Discussed calcium and vitamin D supplementation. - Consideration of shingles vaccination, with discussion on its benefits and side effects. Social History - Alcohol consumption is limited to a glass of wine during holidays such as and . - No history of tobacco use. - Exercises regularly, but experiences fatigue and shortness of breath during activities. Review of Systems - General: Reports fatigue, denies fever or weight loss. - Cardiovascular: Denies chest pain, reports occasional chest heaviness. - Respiratory: Reports dyspnea on exertion, denies cough or wheezing. - Gastrointestinal: Reports occasional swallowing difficulties, denies nausea or vomiting. - Neurological: Denies dizziness or syncope. - ENT: Reports hearing loss, denies tinnitus. - Musculoskeletal: Reports joint pain associated with polymyalgia rheumatica. - Dermatological: Reports cyst and lipoma, denies new skin lesions. Physical Exam General: Cooperative, healthy appearing, comfortable, no acute distress and well developed Orientation: Patient oriented x3 Limitations: No limitations Head: Normal to inspection Ears: Hearing grossly normal bilaterally Nose: Normal external nose present Face and sinus: Normal facial exam Eyes: Appearance normal, both eyes and all related structures Neck: Normal visual inspection and Yes full ROM Respiratory: Normal respiratory effort and able to speak in complete sentences. Clear to auscultation bilaterally Cardiovascular: Regular rate and rhythm. Normal S1 and S2 GI: Normal to inspection. Soft to palpation and nontender Skin: No rashes or lesions noted Neuro: Patient oriented x3 Extremities: Normal to inspection Results - Labs: Blood work in February 2024 showed normal blood count, electrolytes, renal function, liver function, B12, vitamin D, folic acid, and thyroid levels. Blood sugar was mildly elevated at 100 mg/dL, LDL cholesterol at 116 mg/dL, and triglycerides at 104 mg/dL. - Imaging: Last CT chest in December 2023 for ascending aortic aneurysm showed stability at 4.2 to 4.3 cm. Plan The patient's management plan includes continued monitoring of her ascending aortic aneurysm, with the next CT scan scheduled in two years unless symptoms change. Hypertension management will continue with losartan and amlodipine, with regular blood pressure monitoring at home to ensure stability. For hypothyroidism, the patient will maintain her current thyroid medication regimen, with regular follow-up to monitor thyroid function tests. The patient is advised to continue her current exercise routine, with modifications as needed to manage fatigue and dyspnea. The patient will be referred to a surgeon for evaluation and possible removal of the cyst and lipoma, given the discomfort and recurrence of the cyst. Allergic reactions to medications will be documented, and alternative medications will be considered as needed. The patient is encouraged to use saline nasal spray to manage nosebleeds and avoid nasal dryness. Discussion regarding the shingles vaccine was conducted, and the patient is advised to consider vaccination at the pharmacy. Patient was informed and verbally consented to the use of an ambient scribe for clinic note documentation during this visit. Discussion Notes During the visit, we discussed the management of the patient's chronic conditions, including the stability of her ascending aortic aneurysm and the continuation of her current hypertension and hypothyroidism medications. We reviewed the importance of regular monitoring and adjustments to her exercise routine to manage fatigue and dyspnea. The patient was informed about the potential need for surgical evaluation of her cyst and lipoma, and the importance of documenting her medication allergies was emphasized. We also discussed the use of saline nasal spray to prevent nosebleeds and the benefits of the shingles vaccine, encouraging her to consider vaccination. Patient Instructions - Continue taking losartan and amlodipine as prescribed. - Monitor blood pressure regularly at home. - Maintain thyroid medication regimen and follow up for thyroid function tests. - Exercise regularly, adjusting activities to manage fatigue and shortness of breath. - Use saline nasal spray to prevent nosebleeds. - Consider shingles vaccination at the pharmacy. - Schedule a surgical consultation for cyst and lipoma evaluation. Orders: Orders Comprehensive Met. Panel Today I10 - Essential (primary) hypertension Free T4 (Free Thyroxine) Today I10 - Essential (primary) hypertension Vitamin B12 and Folate Today I10 - Essential (primary) hypertension PFT pulmonary function test Today R06.02 - Shortness of breath Complete Blood Count Auto Diff Today I10 - Essential (primary) hypertension Thyroid Stimulating Hormone Today I10 - Essential (primary) hypertension Lipid Panel Today E78.00 - Pure hypercholesterolemia, unspecified, I10 - Essential (primary) hypertension Vitamin D 25-OH Total Today I10 - Essential (primary) hypertension Magnesium Today I10 - Essential (primary) hypertension XR chest 2V Today R06.02 - Shortness of breath Referrals General Surgery Referral D17.9 - Benign lipomatous neoplasm, unspecified, L72.3 - Sebaceous cyst Medications: Refilled sennosides-docusate sodium 8.6-50 mg (Stimulant Laxative Plus) 2 tabs PO BEDTIME 180 tabs 3RF K59.00 - Constipation, unspecified
[2024-10-31 15:25] VITALS: BP 120/70
== END 2024-10-31 16:00 | disposition home or self-care (01) ==
LOC: HO.HMCH 14:44
PROVIDERS: PCP Internal Medicine; Visit Provider Internal Medicine
DX: M35.3 Polymyalgia rheumatica (principal); I89.0 Lymphedema, not elsewhere classified; M81.0 Age-related osteoporosis without current pathological fracture; E03.8 Other specified hypothyroidism; E06.3 Autoimmune thyroiditis; I71.21 Aneurysm of the ascending aorta, without rupture; I10 Essential (primary) hypertension; R06.02 Shortness of breath; L72.3 Sebaceous cyst; D17.9 Benign lipomatous neoplasm, unspecified

== ENCOUNTER → 2024-10-31 14:43 | Outpatient (BNVA) | payer MEDICARE, SELFPAY | PROVIDERS: PCP Internal Medicine; Visit Provider Internal Medicine | DX: Z00.01 Encounter for general adult medical examination with abnormal findings (principal); M35.3 Polymyalgia rheumatica; I89.0 Lymphedema, not elsewhere classified; M81.0 Age-related osteoporosis without current pathological fracture; E03.8 Other specified hypothyroidism; E06.3 Autoimmune thyroiditis; I10 Essential (primary) hypertension; R06.02 Shortness of breath; L72.3 Sebaceous cyst; D17.9 Benign lipomatous neoplasm, unspecified | CPT/HCPCS: 99212 ==

== ENCOUNTER 2024-11-26 07:20 | Emergency (ER) | payer MEDICARE, SELFPAY ==
--- OUTSIDE RECORDS SUMMARY | 2019-10-30 | XMS_ITS | Encounter Summary ---
Author Organization [facility] Address [address] [place] [phone] Phone Care Team Providers Care Blood Or Blood Bank Technician Name Role Phone Nahomy Ortiz MD Primary Care Provid er Louis Moody MD Unavailable Encounter Details Date Type Department Care Team (Late st Contact Info) Description 10/30/2019 Hospital Encounter [facility] [address] [place] [phone] Rasheed Moody MD [address] [place] [address] [email or web address] Social History Tobacco Use Types Packs/Day Years Used Date Smoking Tobacco: Former Smokeless Tobacco: Never Comments:none for more than 50 years Alcohol Use Standard Drinks/Week Comments Yes 0 (1 standard drink = 0.6 oz pur e alcohol) rare Education Answer Date Recorded Are you interested in more education? Not on rai e 07/07/2022 Are you concerned about learning? Not on file 07/07/2022 No 07/07/2022 No 07/07/2022 Digital Access Answer Date Recorded No 08/08/2022 No 08/08/2022 No 08/08/2022 Reliable internet access at home? Not on file 08/08/2022 Device with a working camera? Not on file Comments No Sex and Gender Information Value Date Recorded Sex Assigned at Not on file Legal Sex Female 7:25 PM EST Gender Identity Not on file Sexual Orientation Not on file documented as of this encounter Plan of Treatment Not on file documented as of this encounter Procedures Procedure Name Priority Date/Time Associated Diagnosis Comments MRI BRAIN OUTSIDE (NO INTERPRETATION) Routine 10/30/2019 12:00 AM EDT documented in this encounter Results * MRI Brain Outside (No Interpretation) (10/30/2019 12:00 AM EDT) Narrative [facility] - 12/21/2020 9:35 AM EDT This study is for PACS storage only and not for interpretation. us Rasheed Moody MD IMG OUTSIDE IMAGING W/OUT INT ERPRETATION Final Result [facility] documented in this encounter Visit Diagnoses Not on filedocumented in this encounter Care Teams Blood Or Blood Bank Technician Relationship Specialty Start Date End Date Nahomy Ortiz MD [address] [place] [address] PCP - General Internal Medicine 03/21/18 Louis Moody MD [address] [place] [address] Vascular Surgery 06/04/18 documented as of this encounter Additional Source Comments The information contained in this document represents components of the legal health record. It is not the complete legal health record.[facility]
--- OUTSIDE RECORDS SUMMARY | 2020-09-04 | XMS_ITS | Encounter Summary ---
Author Organization [facility] Address [address] [place] [address] Phone Care Team Providers Care Machine Pack Assembler Name Role Phone Nahomy Ortiz MD Primary Care Provid er Louis Moody MD Unavailable [phone] Encounter Details Date Type Department Care Team (Late st Contact Info) Description 09/04/2020 Hospital Encounter [facility] [address] [place] [phone] Rasheed Moody MD [address] [place] [address] [email or web address] Social History Tobacco Use Types Packs/Day [...] on filedocumented in this encounter Care Teams Machine Pack Assembler Relationship Specialty Start Date End Date Nahomy Ortiz MD [address] [place] [address] PCP - General Internal Medicine 03/21/18 Louis Moody MD [address] [place] [address] Vascular Surgery 06/04/18 documented as of this encounter Additional Source Comments The information contained in this document represents components of the legal health record. It is not the complete legal health record.[facility]
--- OUTSIDE RECORDS SUMMARY | 2020-09-04 00:05 | XMS_ITS | Encounter Summary ---
Author Organization [facility] Address [address] [place] [phone] Phone Care Team Providers Care Tin Pot Operator Name Role Phone Nahomy Ortiz MD Primary Care Provid er Louis Moody MD Unavailable Encounter Details Date Type Department Care Team (Late st Contact Info) Description 09/04/2020 12:05 AM EDT Hospital Encounter [facility] [address] [place] [phone] Rasheed Moody MD [address] [place] [address] [email or web address] [place] [facility] Social History Tobacco Use Types Packs/Day [...] Comments MRI BRAIN OUTSIDE (NO INTERPRETATION) Routine 09/04/2020 12:05 AM EDT documented in this encounter Results * MRI Brain Outside (No Interpretation) (09/04/2020 12:05 AM EDT) Narrative [facility] - 12/21/2020 9:32 AM EDT This study is for PACS storage only and not for interpretation. us Rasheed Moody MD IMG OUTSIDE IMAGING W/OUT INT ERPRETATION Final Result [facility] documented in this encounter Visit Diagnoses Not on filedocumented in this encounter Care Teams Tin Pot Operator Relationship Specialty Start Date End Date Nahomy Ortiz MD [address] [place] [phone] PCP - General Internal Medicine 03/21/18 Louis Moody MD [address] [place] [phone] Vascular Surgery 06/04/18 documented as of this encounter Additional Source Comments The information contained in this document represents components of the legal health record. It is not the complete legal health record.[facility]
--- NOTE | ~2024-11-26 | CT_ITS ---
EXAMINATION: CT ANGIOGRAM CHEST CLINICAL INFORMATION: Right pleuritic chest pain December 29, 2017 COMPARISON: None available. TECHNIQUE: Multiple axial images were obtained through the chest after the administration of 85 mL of Omnipaque 350 intravenous contrast. Extensive vascular post-processing including two-dimensional and three-dimensional reformatted images were created and reviewed on an independent workstation. This CT examination was performed using dose optimization techniques as appropriate, variously including the following: *Automated exposure control *Adjustment of mA and/or kV according to patient size (this includes techniques or standardized protocols for targeted exams where dose is matched to indication/reason for exam; i.e. extremities or head) *Use of iterative reconstruction technique DLP: 204 mGY*cm FINDINGS: QUALITY OF STUDY/CONTRAST BOLUS: Adequate PULMONARY ARTERIES: No filling defects are identified in the pulmonary arteries. THORACIC AORTA: The mid-ascending aorta has increased in size and measures 4.1 cm, previously 3.7cm The descending thoracic aorta measured 2.4 cm. Mild atherosclerotic desiccation is present. LUNGS AND PLEURA: There is linear atelectasis in the left lung base. There is groundglass density in the dependent portion of the right lung base and patchy groundglass density in the right middle lobe and right lower lobe, also likely mild atelectasis. There is no pleural effusion or pleural thickening. MEDIASTINUM: Unremarkable CORONARY ARTERY CALCIFICATION: Present CHEST WALL/AXILLA: No axillary or internal mammary lymphadenopathy. UPPER ABDOMEN: Multiple circumscribed fluid attenuating lesions are present in the liver consistent with simple hepatic cysts. BONES: Unremarkable CT/CT angio chest PE protocol IMPRESSION: No evidence of pulmonary artery embolus. The diameter of the mid ascending aorta is mildly prominent measuring 4.1 cm, previously 3.7 cm in 2018 consistent with slow interval dilation. Fleischner guidelines were followed. Electronically signed by: Ming Mejía MD 11/26/2024 10:47 AM EDT
--- NOTE | 2024-11-26 07:44 | ECG_ITS ---
Test Reason : BACK PAIN Blood Pressure : */* mmHG Vent. Rate : 71 BPM Atrial Rate : 71 BPM P-R Int : 202 ms QRS Dur : 78 ms QT Int : 426 ms P-R-T Axes : 50 3 16 degrees QTcB Int : 462 ms Normal sinus rhythm Possible Inferior infarct , age undetermined Abnormal ECG When compared with ECG of 31-May-2018 08:07, Borderline criteria for Inferior infarct are now Present Referred By: Zenaida Paredes Electronically Signed By: JUANITA MCINTOSH
[2024-11-26 08:03] VITALS: BP 138/61; PULSE 76; RESP 16; TEMP 36.7; O2SAT 100; BMI 25.2
--- NOTE | 2024-11-26 08:05 | ED.CHESTPAIN ---
HPI - Chest Pain General Chief Complaint: Back Pain/Injury Stated Complaint: R side/back pain Time Seen by Provider: 11/26/24 07:33 Source: patient, family and old records reviewed Mode of arrival: ambulatory Limitations: no limitations History of Present Illness ED Provider: DANIEL ROSEN narrative: 74 yo female with PMH of hypothyroidism, PMR not on prednisone, ascending aortic aneurysm, HTN here with c/o starting R sided pleuritic chest pain on the R side. No trauma. Hurts to breathe. She denies fevers, cough, rash. She notes she has not had any recent URI, travel, procedures. She states it is sharp in nature. She has not had any lower leg pain or swelling that is new. She has not taken any medications for this pain. She has no abdominal pain n/v/d, no urinary symptoms. complaint: other (R thoracic pain) Onset (ago): day(s) (1) Timing of current episode: constant Prior episodes: No Onset: during rest Pain location: other (R posterior thoracic) Pain radiation: none Severity: moderate Quality: sharp Relieving factors: nothing Exacerbating factors: inspiration Treatment prior to arrival: none Related Data Home Medications ?Medication ?Instructions ?Recorded ?Confirmed cholecalciferol (vitamin D3) 50 50 mcg PO DAILY 10/31/24 10/31/24 mcg (2,000 unit) capsule cyclosporine 0.05 % eye drops in a 1 drp ophthalmic (eye) BID 10/31/24 10/31/24 dropperette (Restasis) vitamins A,C,T-jxrm-kungui 2,148 2 tab PO BID 10/31/24 10/31/24 mcg-113 mg-45 mg-17.4 mg tablet (PreserVision AREDS) Previous Rx's ?Medication ?Instructions ?Recorded stair lift #1 ea 06/21/21 ipratropium bromide 42 mcg (0.06 2 spray intranasal TID PRN 07/31/23 %) nasal spray shortness of breath 90 days #7 supp levothyroxine 88 mcg tablet 88 mcg PO DAILY #90 tabs 08/26/24 amlodipine 5 mg tablet 5 mg PO DAILY #90 tabs 10/23/24 losartan 100 mg tablet 100 mg PO DAILY #90 tabs 10/23/24 sennosides 8.6 mg-docusate sodium 2 tab PO BEDTIME #180 tabs 10/31/24 50 mg tablet (Stimulant Laxative Plus) cyclobenzaprine 5 mg tablet 5 mg PO BID PRN muscle spasm #14 11/26/24 tabs Allergies Allergy/AdvReac Type Severity Reaction Status Date / Time ibuprofen (From Motrin) Allergy Intermediate Hives Verified 11/26/24 08:07 adhesive (ADHESIVE BANDAGE) Allergy Unknown RASH,ERYTHE Verified 11/26/24 08:07 MA,BRUISING cephalexin (Keflex) Allergy Unknown Rash Verified 11/26/24 08:07 denosumab (From PROLIA) Allergy Unknown SEVERE Verified 11/26/24 08:07 MUSCLE PAIN epinephrine (EPINEPHRINE) Allergy Unknown POUNDING Verified 11/26/24 08:07 HEART/FEELS LIKE PASSING OUT Penicillins (PENICILLINS) Allergy Unknown RASH Verified 11/26/24 08:07 procaine (From Novocain) Allergy Unknown Heart Verified 11/26/24 08:07 racing sulfamethoxazole (From Allergy Unknown RASH Verified 11/26/24 08:07 SEPTRA DS) tetracycline (TETRACYCLINE) Allergy Unknown DIFFICULTY Verified 11/26/24 08:07 SWALLOWING, trouble swallowing, trouble swallowing trimethoprim (From SEPTRA DS) Allergy Unknown RASH Verified 11/26/24 08:07 hydrochlorothiazide AdvReac Intermediate Headache Verified 11/26/24 08:07 lisinopril AdvReac Intermediate Cough Verified 11/26/24 08:07 Review of Systems Review of Systems: Constitutional : No Fever, No Chills, No Fatigue ENT/Mouth : No sore throat, No Rhinorrhea Eyes: No Eye Pain, No Swelling, No Redness Cardiovascular : No Chest Pain, pos SOB, No Dyspnea on Exertion Respiratory : No Cough, No Sputum Gastrointestinal : No Nausea, No Vomiting, No Diarrhea, No abdominal Pain Genitourinary : No Dysuria, No Urinary Frequency, No Hematuria, Musculoskeletal : No joint pain, No Myalgias, No Joint Swelling, pos thoracic pain Skin : No Skin Lesions, No rash Neuro : No Weakness, No Numbness, No Dizziness, no Headache All other systems reviewed and are negative PENDING SALE TO [facility] Past Medical History Attestation statement: The following information was validated with the patient. 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 Osteoporosis Polymyalgia rheumatica Hypothyroidism Rhinitis Surgical History S/P plication of diaphragm Hx of thyroidectomy History of bronchoscopy Status post spinal disc removal H/O: hysterectomy H/O dilation and curettage Fatty tumor History of open reduction and internal fixation (ORIF) procedure History of neck surgery H/O breast surgery History of total abdominal hysterectomy Family History Family History Father Emphysema lung Mother Aneurysm Emphysema lung Sister Chronic mental illness Celiac disease Breast cancer Family/Other Chronic mental illness Dementia Sister Pancreatic cancer Social History Social History Housing: House Alcohol intake: current Comment: glass of wine holidays Patient Tobacco Use Status: Never used Tobacco Tobacco use type: Cigarette Years Smoked: high school 4 years Smoked in Last 30 Days: No e-Cigarette/Vaping Use: Never Used Second Hand Smoke Exposure: No Use of substances other than those prescribed or required for medical reasons: No Advance Directives: Yes Advance Directives Information Provided: Yes Advance Directives on File: No Advance Directives Date on File: 09/10/22 Do you have a plan to hurt others: No Plan service: No Current occupational status: retired Cognitive needs: No Hearing needs: No Vision needs: Yes Physical Exam Vital Signs: Vital Signs: Last Vital Signs Temp 98.1 F 11/26/24 08:09 Pulse 70 11/26/24 10:24 Resp 17 11/26/24 10:24 BP 126/43 L 11/26/24 10:24 Pulse Ox 99 11/26/24 10:24 O2 Del Method Room Air 11/26/24 10:24 BMI result Body Mass Index 25.2 Appearance: Alert. Oriented X3. No acute distress. Eyes: Pupils equal, round and reactive to light. ENT: Pharynx normal. Neck: Normal inspection. Neck supple. CVS: Normal heart rate and rhythm. Pulses normal. Respiratory: No respiratory distress. Breath sounds normal. Abdomen: Soft and nontender. Back: no rash or ttp on exam Skin: Skin warm and dry. Normal skin color. Normal skin turgor. Extremities: No lower extremity edema. No calf ttp Neuro: Oriented X 3. No motor deficit. No sensory deficit. CN2-12 intact Medications Administered Discontinued Medications Generic Name Dose Route Start Last Admin Trade Name Danny PRN Reason Stop Dose Admin Acetaminophen 1,000 mg in 100 mls @ 400 mls/hr 11/26/24 07:42 11/26/24 09:20 Ofirmev IV 11/26/24 07:56 Infused ONCE ONE Infusion Iohexol 100 ml 11/26/24 10:17 11/26/24 10:18 Iohexol 350 Mg/Ml 100 Ml Infus..Btl IV 11/26/24 10:18 65 ml ONCE ONE Administration Morphine Sulfate 4 mg 11/26/24 07:42 11/26/24 08:55 Morphine Sulfate 4 Mg/Ml Cartridge IVPUSH 11/26/24 07:43 4 mg ONCE ONE Administration Protocol Medical Decision Making Medical Decision Making [facility] Narrative: 74 yo female with PMH of hypothyroidism, PMR not on prednisone, ascending aortic aneurysm, HTN here with c/o R sided pleuritic thoracic pain. On exam I cannot reproduce the pain and there is no rash. She has lung sounds on exam. At this time will need labs, EKG, CTA:PE possible VTE, atelectatis, pleurisy, effusion. She has no central chest pain or abdominal pain. Differential Diagnosis Differential Diagnoses: The differential diagnosis associated with the presentation includes atelectasis, pleurisy, VTE Admission/Observation Consideration of admission/observation: Escalation of care including admission/observation considered negative work up feels better stable for DC Lab Data [facility] Lab Attestation statement: I reviewed the patient's lab results. 11/26/24 08:51 11/26/24 08:51 Labs: Lab Results 11/26/24 Range/Units 08:51 WBC 7.6 (4.8-10.8) X10*3/uL RBC 4.84 (4.20-5.50) X10*6/uL Hgb 12.9 (12.0-16.0) g/dl Hct 38.7 (37.0-47.0) % MCV 80.0 (80.0-98.0) fL MCH 26.7 L (27.0-33.0) pg MCHC 33.3 (31.0-35.0) g/dl RDW 14.0 (11.0-16.0) % Plt Count 291 (160-400) X10*3/uL MPV 10.0 (9.4-12.3) fL Immature Gran % (Auto) 0.1 (0.0-0.4) % Neut % (Auto) 59.1 (45-73) % Lymph % (Auto) 33.9 (20-40) % [place] % (Auto) 4.9 (2-11) % Eos % (Auto) 1.2 (0-4) % Baso % (Auto) 0.8 (0-2) % Lymph # (Auto) 2.6 (1.2-4.9) X10*3/uL [place] # (Auto) 0.4 (0.1-1.2) X10*3/uL Eos # (Auto) 0.1 (0.0-0.4) X10*3/uL Baso # (Auto) 0.1 (0.0-0.2) X10*3/uL Abs Immat Gran (auto) 0.01 (0.00-0.03) X10*3/uL Absolute Neuts (auto) 4.5 (2.0-8.3) x10*3/uL Absolute Nucleated RBC 0.000 (0.0-0.012) X10*3/uL Nucleated RBC % (auto) 0.0 (0.0-0.2) /100WBC Sodium 136 (135-145) mmol/L Potassium 4.5 (3.3-5.1) mmol/L Chloride 104 (96-108) mmol/L Carbon Dioxide 21 L (22-29) mmol/L Anion Gap 16 (12-20) BUN 12 (9-16) mg/dL Creatinine 0.75 (0.5-1.4) mg/dL Estim Creat Clear Calc 59.7 Estimated GFR > 60 Random Glucose 102 (60-115) mg/dL Calcium 9.4 (8.4-10.2) mg/dL Magnesium 2.2 (1.6-2.6) mg/dL Total Bilirubin 0.4 (0.0-1.0) mg/dL Direct Bilirubin 0.1 (0.0-0.5) mg/dL AST 29 (5-31) U/L ALT 10 (0-31) U/L Alkaline Phosphatase 129 H (39-117) U/L Troponin I High Sens < 2.7 (<3.5-17.0) ng/L B-Natriuretic Peptide 15 (<100) pg/mL Total Protein 8.0 (6.5-8.0) g/dL Albumin 4.4 (3.5-5.0) g/dL Influenza Type A (PCR) NEGATIVE (Negative) Influenza Type B (PCR) NEGATIVE (Negative) RSV RNA Qual (PCR) NEGATIVE (Negative) SARS-CoV-2 RNA (RT-PCR) NEGATIVE (Negative) Independent Interpretation I performed an independent interpretation of an: EKG and CT Scan (no VTE) Interpretation: Rate: 71 Rhythm: NSR Bath: normal Normal P waves. Normal SALLY. Normal QRS complex. ST T wave : inverted t waves III, no VALDEMAR qTC: 462 prior studies: no acute ischemia The study has been interpreted contemporaneously by me. . Radiology Impression Discussion of test interpretation with radiology: I have reviewed the radiologist's reading. Independent Historian Clinical information obtained from an independent historian. History obtained from or confirmed by: Spouse External Record Review External record reviewed: Inpatient record and Outpatient record Prescription Management I considered prescription management with: Pain Medication Discharge Plan Discharge Clinical Impression: Acute right-sided thoracic back pain Instructions: Thoracic Pain (ED) Additional Instructions: labs reassuring CT scan shows slight increase in your aneurysm this needs to be monitored by your primary care doctor and vascular doctor but ribs, lungs are normal and there is no mass or blood clot please take tylenol and motrin as needed for pain use low dose muscle relaxer and pain patch return for any worsening symptoms or concerns. CT/CT angio chest PE protocol IMPRESSION: No evidence of pulmonary artery embolus. The diameter of the mid ascending aorta is mildly prominent measuring 4.1 cm, previously 3.7 cm in 2018 consistent with slow interval dilation. Fleischner guidelines were followed. Prescriptions: New cyclobenzaprine 5 mg tablet 5 mg PO BID PRN (Reason: muscle spasm) Qty: 14 0RF No Action (DME) stair lift ref [phone] See Rx Instructions .Route .MEDSUPPLY Qty: 1 0RF Rx Instructions: As directed levothyroxine 88 mcg tablet 88 mcg PO DAILY Qty: 90 1RF losartan 100 mg tablet 100 mg PO DAILY Qty: 90 2RF amlodipine 5 mg tablet 5 mg PO DAILY Qty: 90 1RF ipratropium bromide 42 mcg (0.06 %) spray,non-aerosol 2 spray intranasal TID PRN (Reason: shortness of breath) 90 Days Qty: 7 3RF cyclosporine [Restasis] 0.05 % dropperette 1 drp ophthalmic (eye) BID cholecalciferol (vitamin D3) 50 mcg (2,000 unit) capsule 50 mcg PO DAILY PreserVision AREDS 2,148 mcg-113 mg-45 mg-17.4mg tablet 2 tab PO BID Rx Instructions: administer with AM and PM meals sennosides-docusate sodium [Stimulant Laxative Plus] 8.6-50 mg tablet 2 tab PO BEDTIME Qty: 180 3RF Print Language: Bengali
[2024-11-26 08:09] VITALS: BP 138/61; PULSE 76; RESP 16; TEMP 36.7; O2SAT 100
--- NOTE | 2024-11-26 08:12 | PC.NURSE ---
74F presents with R lower back pain since this morning that woke her up out of bed, RR even and unlabored, denies CP or SOB. sts has asmall aortic aneurysm. Pt is A+OX4, calm, cooperative, and ambulatory. Pt sts some minor nausea but no other complaints.
[2024-11-26 08:58] LABS: MANUAL DIFF FLAG NO
[2024-11-26 09:00] LABS: Hematocrit 38.7 % (37.0-47.0); Hemoglobin 12.9 g/dl (12.0-16.0); Imm Gran Abs Auto 0.01 X10*3/uL (0.00-0.03); Imm Gran Pct Auto 0.1 % (0.0-0.4); Lymphocytes Absolute Auto 2.6 X10*3/uL (1.2-4.9); Mean Corpuscular HGB Conc 33.3 g/dl (31.0-35.0); Mean Corpuscular Hemoglobin 26.7 pg (27.0-33.0); Mean Corpuscular Volume 80.0 fL (80.0-98.0); NRBC Abs Auto 0.000 X10*3/uL (0.0-0.012); NRBC Pct Auto 0.0 /100WBC (0.0-0.2); Platelet Count 291 X10*3/uL (160-400); Red Blood Count 4.84 X10*6/uL (4.20-5.50); White Blood Count 7.6 X10*3/uL (4.8-10.8)
[2024-11-26 09:22] LABS: B Type Natriuretic Peptide 15 pg/mL (<100)
[2024-11-26 09:25] LABS: Alanine Aminotransferase 10 U/L (0-31); Albumin Level 4.4 g/dL (3.5-5.0); Alkaline Phosphatase 129 U/L (39-117); Anion Gap 16 (12-20); Aspartate Amino Transferase 29 U/L (5-31); Blood Urea Nitrogen 12 mg/dL (9-16); Calcium 9.4 mg/dL (8.4-10.2); Carbon Dioxide 21 mmol/L (22-29); Chloride 104 mmol/L (96-108); Creatinine Clr Calc Pharmacy 59.7; Estimated Glomerular Filt Rate > 60; Magnesium 2.2 mg/dL (1.6-2.6); Potassium 4.5 mmol/L (3.3-5.1); Sodium 136 mmol/L (135-145); Total Protein 8.0 g/dL (6.5-8.0); Troponin-I High Sensitivity < 2.7 ng/L (<3.5-17.0)
--- OUTSIDE RECORDS SUMMARY | 2024-11-26 09:37 | XMS_ITS | Encounter Summary ---
Author Organization [facility] Address [address] [place] [phone] Phone Care Team Providers Care Lip And Gate Builder Name Role Phone Nahomy Ortiz MD Primary Care Provid er Louis Moody MD Unavailable Encounter Details Date Type Department Care Team (Late st Contact Info) Description 06/14/2018 Procedure [place] [facility] [place] [address] [place] [phone] Social History Tobacco Use Types Packs/Day Years Used Date Smoking Tobacco: Former Smokeless Tobacco: Never Comments:none for more than 50 years Alcohol Use Standard Drinks/Week Comments Yes 0 (1 standard drink = 0.6 oz pur e alcohol) rare Comments No Sex and Gender Information Value Date Recorded Sex Assigned at Not on file Legal Sex Female 7:25 PM EST Gender Identity Not on file Sexual Orientation Not on file documented as of this encounter Plan of Treatment Not on file documented as of this encounter Visit Diagnoses Not on filedocumented in this encounter Care Teams Lip And Gate Builder Relationship Specialty Start Date End Date Nahomy Ortiz MD [address] [place] [phone] PCP - General Internal Medicine 03/21/18 Louis Moody MD [address] [place] [address] Vascular Surgery 06/04/18 documented as of this encounter Additional Source Comments The information contained in this document represents components of the legal health record. It is not the complete legal health record.[facility]
--- OUTSIDE RECORDS SUMMARY | 2024-11-26 09:37 | XMS_ITS | Encounter Summary ---
Author Organization [facility] Address [address] [place] [address] Phone Care Team Providers Care Guide Changer Name Role Phone Nahomy Ortiz MD Primary Care Provid er Louis Moody MD Unavailable [phone] Reason for Referral * Physical Therapy (Routine) - Closed Specialty Diagnoses / Procedures Referred By Josephine herrera Referred To Contact Physical Therapy Diagnoses Encounter for rehabilitation System, Provider Not In, [facility] [id number] [place] [address] Phone: tel: Referral ID Status Reason Start Date Expiration Date Visits Re quested Visits Authorized [id number] Closed 10/15/2018 03/12/2019 99 99 Encounter Details Date Type Department Care Team (Latest Contact Info) Description 10/04/2018 Transcribe Orders [facility] [address] [place] [phone] Nahomy Ortiz MD [address] [place] [address] [phone] Encounter for rehabilitation (Primary Dx) Social History Tobacco Use Types Packs/Day Years [...] as of this encounter Plan of Treatment Scheduled Referrals Name Type Priority Associated Diagnoses Orde r Schedule Ambulatory referral to [facility] Physical Therapy Outpatient Referral Routine Encounter for rehabilitation Ordered: 10/04/2018 documented as of this encounter Visit Diagnoses Diagnosis Encounter for rehabilitation- Primary documented in this encounter Care Teams Guide Changer Relationship Specialty Start Date End Date Nahomy Ortiz MD [address] [place] [address] PCP - General Internal Medicine 03/21/18 Louis Moody MD [address] [place] [address] Vascular Surgery 06/04/18 documented as of this encounter Additional Source Comments The information contained in this document represents components of the legal health record. It is not the complete legal health record.[facility]
--- OUTSIDE RECORDS SUMMARY | 2024-11-26 09:37 | XMS_ITS | Clinical Summary ---
Author Organization [facility] Address [address] [place] [address] Phone Care Team Providers Care Cuff Cutter Name Role Phone Nahomy Ortiz MD Primary Care Provid er Louis Moody MD Unavailable [phone] Allergies Active Allergy Reactions Criticality Noted Date Comments Adhesive Tape-Silicones Rash Low 05/03/2018 Epinephrine Lightheadedness 05/03/2018 Ibuprofen Hives 05/03/2018 Penicillins Rash Low 05/03/2018 Sulfa (Sulfonamide Antibiotics) Rash Low 04/14 Tetracyclines Anaphylaxis High 05/03/2018 Medications dexamethasone (DECADRON) 1 MG tablet Take 0.5 mg by mouth daily. Active ipratropium (ATROVENT) 42 mcg (0.06 %) nasal spray 2 sprays by Nasal route 3 (three) times a day. Active LORazepam (ATIVAN) 0.5 MG tablet Take 0.25 mg by mouth daily as needed. Active magnesium oxide 250 mg (150 mg elemental) Tab Take 250 mg by mouth daily. Active cyclosporine (RESTASIS) 0.05 % suspension Place 1 drop into each eye 2 (two) times a day. Active levothyroxine (SYNTHROID, LEVOTHROID) 88 MCG tablet Take 88 mcg by mouth every morning. Active cholecalcifero l (VITAMIN D3) 1,000 unit tablet Take 1,000 Units by mouth daily. Active acetaminophen (TYLENOL) 325 mg tablet Take 3 tablets (975 mg total) by mouth every 6 (six) hours. 0 9 Active gabapentin (NEURONTIN) 100 MG capsule Take 1 capsule (100 mg total) by mouth 3 (three) times a day. 50 capsule 1 9 Active metoprolol tartrate (LOPRESSOR) 25 MG tablet Take 0.5 tablets (12.5 mg total) by mouth 2 (two) times a day. 9 Active oxyCODONE 5 MG immediate release tablet Take 1 tablet (5 mg total) by mouth every 4 (four) hours as needed for moderate pain or severe pain. Partial fill ok 40 tablet Active polyethylene glycol (MIRALAX) 17 gram packet Take 17 g by mouth daily as needed (severe constipation). 9 Active senna (SENOKOT) 8.6 mg tablet Take 2 tablets by mouth nightly at bedtime. Active lidocaine 4 % Place 1 patch onto the skin daily. 9 Active miscellaneous medical supply Misc Return to Activity Notice Jessica Clement was admitted to [facility] in June for surgery and care under Clemente Mendoza MD. She has since recovered and can now return to any exercise programs without restriction. 1 each 9 Active Active Problems Problem Noted Date Diagnosed Date Sarcoidosis 05/03/2018 Diaphragm paralysis 05/03/2018 Sicca syndrome 05/03/2018 Dyspnea on exertion 03/21/2018 Immunizations Immunization Administration Dates Next Due Pneumococcal conjugate PCV13 06/15/2018(Deferred : Patient Refused) Family History Medical History Relation Comments Breast cancer Sister Pancreatic cancer Sister Relation Status Comments Sister Social History Tobacco Use Types Packs/Day Years [...] on file Sexual Orientation Not on file Last Filed Vital Signs Vital Sign Reading Time Taken Comments Blood Pressure 148/99 07/20/2018 3:08 PM EDT Pulse 90 07/20/2018 3:08 PM EDT Temperature 37.4 C (99.3 F) 06/17/2018 7:45 AM EDT Respiratory Rate 18 06/17/2018 7:45 AM EDT Oxygen Saturation 97% 07/20/2018 3:08 PM EDT Inhaled Oxygen Concentration - - Weight 59.4 kg (131 lb) 07/20/2018 3:08 PM EDT Height 169.2 cm (5' 6.6 ) 07/20/2018 3:08 PM EDT Body Mass Index 20.76 07/20/2018 3:08 PM EDT Plan of Treatment Health Maintenance Due Date Last Done Comments Adult Td,Tdap Booster 1948 LIPID PANEL 1948 TSH LEVEL 1948 DEPRESSION SCREENING 1960 SMOKING Hx and SMOKELESS TOBACCO SCREENING 1961 HEPATITIS C SCREENING 1966 ZOSTER VACCINES (1 of 2) 1998 OSTEOPOROSIS SCREENING INITIAL (ONE-TIME) 2013 PNEUMOCOCCAL VACCINES (50+ years) (2 of 2 - PCV) 12/08/2018 12/08/2017 RSV VACCINE (1 - 1-dose 75+ series) 2023 COVID-19 VACCINE (3 - season) 2023 06/07/2020, 05/17/2020 INFLUENZA VACCINE (#1) 2024 9, 12/08/2017, 02/17/2016, Additional history exists HEPATITIS A VACCINES Aged Out No long er eligible based on patient's age to complete this topic HIB VACCINES Aged Out No longer eligi ble based on patient's age to complete this topic MENINGOCOCCAL VACCINES (ACWY) Aged Out No longer eligible based on patient's age to complete this topic MENINGOCOCCAL VACCINES (B) Aged Out N o longer eligible based on patient's age to complete this topic Medical Devices Not on file Insurance MEDICARE PART A & B [employer] MEDEX SUPPLEMENT MEDICARE PART A & B [employer] MEDEX SUPPLEMENT MEDICARE PART A & B [employer] MEDEX SUPPLEMENT MEDICARE PART A & B [employer] MEDEX SUPPLEMENT MEDICARE PART A & B Member Subscriber Plan / Payer ( fective 2016-Present) Name:Jessica Clement Member ID:[id number] Relation to Subscriber:Self Name:Jessica Clement Subscriber ID:[id number] Payer ID:[id number] Group ID:Not on file Type:Medicare Address: [employer] [facility] [address] [phone] [facility] MEDEX SUPPLEMENT MEDICARE PART A & B [employer] MEDEX SUPPLEMENT MEDICARE PART A & B [employer] MEDEX SUPPLEMENT MEDICARE PART A & B [employer] MEDEX SUPPLEMENT MEDICARE PART A & B [employer] MEDEX SUPPLEMENT Advance Directives For more information, please contact: [phone] (9AM - 5PM [place], Monday-Monday) Documents on File Type Date Recorded Patient Pressing Machine Operator Expl anation Healthcare Proxy 06/19/2018 11:57 AM * Full Code (Presumed) (Latest Code Status on File) Date Activated Date Inactivated Comments 06/14/2018 12:44 PM 06/17/2018 4:16 PM Care Teams Cuff Cutter Relationship Specialty Start Date End Date Nahomy Ortiz MD [address] [place] [address] PCP - General Internal Medicine 03/21/18 Louis Moody MD [address] [place] [phone] Vascular Surgery 06/04/18 Additional Source Comments The information contained in this document represents components of the legal health record. It is not the complete legal health record.[facility]
--- OUTSIDE RECORDS SUMMARY | 2024-11-26 09:37 | XMS_ITS | Encounter Summary ---
Author Organization [facility] Address [address] [place] [address] [place] [address] Phone Care Team Providers Care Business Development Agent Name Role Phone Nahomy Ortiz MD Primary Care Provid er Louis Moody MD Unavailable Reason for Referral * Consultation (Within 1 month) - Closed Specialty Diagnoses / Procedures Referred By Josephine herrera Referred To Contact Pulmonary Disease Diagnoses Dyspnea, unspecified type Jessica Osborne NP [address] [phone] Phone: tel: Referral ID Status Reason Start Date Expiration Date Visits Re quested Visits Authorized [id number] Closed 12/08/2017 12/08/2018 1 1 Encounter Details Date Type Department Care Team (Latest Contact Info) Description 12/08/2017 Transcribe Orders [facility] [place] [facility] [address] [place] [address], [address] Floor, [address] [place] [address] Jessica Osborne NP Dyspnea, unspecified type (Primary Dx) Social History Tobacco Use Types [...] Diagnoses Orde r Schedule Ambulatory referral to [facility] Pulmonary Outpatient Referral Routine Dyspnea, Unspecified Type Ordered: 12/08/2017 documented as of this encounter Visit Diagnoses Diagnosis Dyspnea, unspecified type- Primary documented in this encounter Care Teams Business Development Agent Relationship Specialty Start Date End Date Nahomy Ortiz MD [address] [place] [address] PCP - General Internal Medicine 03/21/18 Louis Moody MD [address] [place] [phone] Vascular Surgery 06/04/18 documented as of this encounter Additional Source Comments The information contained in this document represents components of the legal health record. It is not the complete legal health record.[facility]
--- OUTSIDE RECORDS SUMMARY | 2024-11-26 09:37 | XMS_ITS | Patient Health Record ---
Author Organization [facility] Address [address] [place] [address] Care Team Providers Care Telesales Advisor Name Role Phone Erinn(inactive) Bay MERRITT Primary [...] Synthroid .088mg 03/13/2024 03/13/2024 A ctive Ipratropium [place] 0.06% Active Problems Problem Type SNOMED Code ICD Code Onset Dates Problem Status W/U Status Risk Notes Problem Constipation (98063972) Constipation (564.00) Active confirmed Problem Colon cancer screening (947046377) Colon cancer screening (V76.51) Active confirmed Plan Of Treatment Future Test Test Name Order Date COLONOSCOPY 08/17/2012 Insurance Providers Payer Name Payer Address Payer Phone Subscriber Number Group Number Insured Name Patient Relationship to Insured Coverage Start Date Coverage End Date [facility] BCBS PROFESSIONAL CLAIMS [address] [place] [address] [phone] [id number] JEWEL MANDUJANO Self - patient is the insured Medical (General) History Medical History History ICD Code hypothyroidism xerophthalmia Surgical History Surgery Date(Month/Year) hysterectomy 1972 breast biopsy 1984 disc surgery 1986
--- OUTSIDE RECORDS SUMMARY | 2024-11-26 09:37 | XMS_ITS | Clinical Summary ---
Author Organization [facility] ity Address [address] [place] [phone] Care Team Providers Care Blend Plant Operator Name Role Phone Unavailable Primary Care Provider [...] nts (1 - 1-dose 75+ series) 2023 Depression Screening 03/13/2024 COVID-19 Vaccine ( - 2023-2 5 season) 2024 Influenza Vaccine (#1) 2024 HIB Vaccines Aged [...]
[2024-11-26 09:41] LABS: Resp Syncy Virus RNA Qual PCR NEGATIVE (Negative); SARS COV2 PCR INHOUSE NEGATIVE (Negative)
[2024-11-26] MEDS: iohexoL 350 MG/ML 100 ML INFUS..BTL IV (10:18)
[2024-11-26 10:24] VITALS: BP 126/43; PULSE 70; RESP 17; O2SAT 99
[2024-11-26 11:05] VITALS: BP 130/57; PULSE 61; RESP 13; O2SAT 98
[2024-11-26 11:11] VITALS: BP 130/57; PULSE 61; RESP 13; TEMP -17.7; TEMP 0; O2SAT 98
== END 2024-11-26 11:17 | disposition home or self-care (01) ==
PROVIDERS: Emergency Provider Emergency Medicine; PCP Internal Medicine
DX: M54.6 Pain in thoracic spine (principal); R07.81 Pleurodynia; I71.40 Abdominal aortic aneurysm, without rupture, unspecified; I10 Essential (primary) hypertension; M35.3 Polymyalgia rheumatica; E03.9 Hypothyroidism, unspecified; Z79.899 Other long term (current) drug therapy; Z03.818 Encounter for observation for suspected exposure to other biological agents ruled out
CPT/HCPCS: 36415; 71275; 80048; 80076; 83735; 83880; 84484; 85025; 87637; 93005; 96365; 96375; 99285; J0131; J2270; Q9967

== ENCOUNTER → 2024-11-26 07:42 | Outpatient (BNV) | payer MEDICARE, SELFPAY | PROVIDERS: Emergency Provider Emergency Medicine; PCP Internal Medicine; Visit Provider Radiology Diagnostic Radiology | DX: R07.89 Other chest pain (principal) | CPT/HCPCS: 71275 ==

== ENCOUNTER → 2024-11-26 07:44 | Outpatient (BNV) | payer MEDICARE, SELFPAY | PROVIDERS: Emergency Provider Emergency Medicine; PCP Internal Medicine; Visit Provider Internal Medicine | DX: R94.31 Abnormal electrocardiogram [ECG] [EKG] (principal); M54.9 Dorsalgia, unspecified | CPT/HCPCS: 93010 ==

== ENCOUNTER 2024-12-09 13:54 | Outpatient (AMB) | payer MEDICARE, SELFPAY ==
--- OUTSIDE RECORDS SUMMARY | 2019-10-30 | XMS_ITS | Encounter Summary ---
Author Organization [facility] Address [address] [place] [address] Phone Care Team Providers Care Warehouse Order Filler Name Role Phone Nahomy Ortiz MD Primary Care Provid er Louis Moody MD Unavailable Encounter Details Date Type Department Care Team (Late st Contact Info) Description 10/30/2019 Hospital Encounter [facility] [address] [place] [phone] Rasheed Moody MD [address] [place] [address] [email or web address] Social History Tobacco Use Types Packs/Day Years [...] on filedocumented in this encounter Care Teams Warehouse Order Filler Relationship Specialty Start Date End Date Nahomy Ortiz MD 5 [place] [address] PCP - General Internal Medicine 03/21/18 Louis Moody MD [address] [place] [address] Vascular Surgery 06/04/18 documented as of this encounter Additional Source Comments The information contained in this document represents components of the legal health record. It is not the complete legal health record.[facility]
--- OUTSIDE RECORDS SUMMARY | 2020-09-04 | XMS_ITS | Encounter Summary ---
Author Organization [facility] Address [address] [place] [phone] Phone Care Team Providers Care Senior Government Program Analyst Name Role Phone Nahomy Ortiz MD Primary Care Provid er Louis Moody MD Unavailable Encounter Details Date Type Department Care Team (Late st Contact Info) Description 09/04/2020 Hospital Encounter [facility] [address] [place] [phone] Rasheed Moody MD [address] [place] [address] [email or web address] Social History Tobacco Use Types Packs/Day Years [...] on filedocumented in this encounter Care Teams Senior Government Program Analyst Relationship Specialty Start Date End Date Nahomy Ortiz MD [address] [place] [phone] PCP - General Internal Medicine 03/21/18 Louis Moody MD [address] [place] [phone] Vascular Surgery 06/04/18 documented as of this encounter Additional Source Comments The information contained in this document represents components of the legal health record. It is not the complete legal health record.[facility]
--- OUTSIDE RECORDS SUMMARY | 2020-09-04 00:05 | XMS_ITS | Encounter Summary ---
Author Organization [facility] Address [address] [place] [address] Phone Care Team Providers Care Horologist Name Role Phone Nahomy Ortiz MD Primary Care Provid er Louis Moody MD Unavailable Encounter Details Date Type Department Care Team (Late st Contact Info) Description 09/04/2020 12:05 AM EDT Hospital Encounter [facility] [address] [place] [phone] Rasheed Moody MD [address] [place] [address] [email or web address] [email or web address] [facility], [facility] Social History Tobacco Use Types Packs/Day [...] on filedocumented in this encounter Care Teams Horologist Relationship Specialty Start Date End Date Nahomy Ortiz MD [address] [place] [phone] PCP - General Internal Medicine 03/21/18 Louis Moody MD [address] [place] [phone] Vascular Surgery 06/04/18 documented as of this encounter Additional Source Comments The information contained in this document represents components of the legal health record. It is not the complete legal health record.[facility]
--- NOTE | 2024-12-09 13:57 | A.OFFVIS_ITS ---
Vital Signs 3 12/09/24 14:18 Height 5 ft 6.5 in Weight 155 lb 2 oz BMI 24.7 BP 140/66 H Blood Pressure Location Lt brachial Position Sitting Pulse 85 Intake Visit Reasons: sebaceaous cyst Intake Note: Patient is seen in office for evaluation of a lesions of the groin and right arm. Pt c/o: couple cyst in the groin area, onset since July has drained about 3 times, yellow discharge, had two removed couple yrs ago @ [facility], currently has redness and no discharge, has a lump on the right arm Neck Fitter Required: No Shovel Log Loader Operator: Shovel Log Loader Operator Present Accompanied by: Self / Same As Patient Allergies ibuprofen (From Motrin) Allergy (Intermediate, Verified 12/09/24 14:04) Hives adhesive (ADHESIVE BANDAGE) Allergy (Unknown, Verified 12/09/24 14:04) RASH,ERYTHEMA,BRUISING cephalexin (Keflex) Allergy (Unknown, Verified 12/09/24 14:04) Rash denosumab (From PROLIA) Allergy (Unknown, Verified 12/09/24 14:04) SEVERE MUSCLE PAIN epinephrine (EPINEPHRINE) Allergy (Unknown, Verified 12/09/24 14:04) POUNDING HEART/FEELS LIKE PASSING OUT Penicillins (PENICILLINS) Allergy (Unknown, Verified 12/09/24 14:04) RASH procaine (From Novocain) Allergy (Unknown, Verified 12/09/24 14:04) Heart racing sulfamethoxazole (From SEPTRA DS) Allergy (Unknown, Verified 12/09/24 14:04) RASH tetracycline (TETRACYCLINE) Allergy (Unknown, Verified 12/09/24 14:04) DIFFICULTY SWALLOWING, trouble swallowing, trouble swallowing trimethoprim (From SEPTRA DS) Allergy (Unknown, Verified 12/09/24 14:04) RASH hydrochlorothiazide Adverse Reaction (Intermediate, Verified 12/09/24 14:04) Headache lisinopril Adverse Reaction (Intermediate, Verified 12/09/24 14:04) Cough Medication List - Last Reconciled 12/09/24 by Stas Perez MD amlodipine 5 mg PO DAILY cholecalciferol (vitamin D3) 50 mcg PO DAILY cyclobenzaprine 5 mg PO BID PRN cyclosporine 0.05% (Restasis) 1 drp ophthalmic (eye) BID ipratropium bromide 2 sprays intranasal TID PRN 90 days levothyroxine 88 mcg PO DAILY losartan 100 mg PO DAILY sennosides-docusate sodium 8.6-50 mg (Stimulant Laxative Plus) 2 tabs PO BEDTIME [stair lift As directed] vitamins A,C,R-qrwy-kfyine 2,148 mcg-113 mg-45 mg-17.4mg (PreserVision AREDS) 2 tabs PO BID HPI Comments Details: 74-year-old female patient presenting for evaluation of a soft tissue mass of the right arm and skin cyst of the right groin. The lesion in the right arm has been present for many years and has gradually increasing in size. She denies any significant pain, redness or discharge from the site. She feels it may be a fatty lump and would like to have the lesion removed before it gets much larger. Lesions in the groin have intermittently drained in our occasionally quite painful. She previously underwent excision of a 2nd groin lesion on the left side in the subsequently has remained asymptomatic. She denies any fever, chills, nausea or vomiting. She does report discharge on a regular basis from the groin cyst. [facility] Medical History Lymphedema Palpitations H/O one miscarriage Collapsed lung Paralysis, diaphragm Ascending aortic aneurysm Sarcoidosis of lung Ermias's disease salvage determiner systemic steroid user Osteoporosis Polymyalgia rheumatica Hypothyroidism Rhinitis Surgical History S/P plication of diaphragm Hx of thyroidectomy History of bronchoscopy Status post spinal disc removal H/O: hysterectomy H/O dilation and curettage Fatty tumor History of open reduction and internal fixation (ORIF) procedure History of neck surgery H/O breast surgery History of total abdominal hysterectomy Family History Father Emphysema lung Mother Aneurysm Emphysema lung Sister Chronic mental illness Celiac disease Breast cancer Family/Other Chronic mental illness Dementia Sister Pancreatic cancer Social History Housing: House Alcohol intake: current Comment: glass of wine holidays Patient Tobacco Use Status: Never used Tobacco Tobacco use type: Cigarette Years Smoked: high school 4 years e-Cigarette/Vaping Use: Never Used Second Hand Smoke Exposure: No Advance Directives Date on File: 09/10/22 service: No Current occupational status: retired Cognitive needs: No Hearing needs: No Vision needs: Yes Review of Systems Const All systems reviewed & are unremarkable except as noted in HPI and below Physical Exam Const General: cooperative and no acute distress Nutritional Appearance: well nourished Orientation/consciousness: patient oriented x3 Limitations: no limitations HEENT Head: Yes normocephalic and Yes atraumatic Ears: hearing grossly normal bilaterally Resp Effort & Inspection: normal respiratory effort, no audible wheezes, no cough and no respiratory distress Cardio Jugular venous distension: no JVD GI Inspection: Yes normal to inspection Abdomen image: 2 1. 1 cm area of redness surrounding hair follicles suggestive of folliculitis. No fluctuance noted to palpation. No active discharge noted. 2. 2nd area of folliculitis measuring approximately 0.5 cm in diameter. Skin Other: Warm, dry, no rash Neuro General: patient oriented x3 Extrem General: Yes no clubbing, cyanosis or edema Elbow/forearm/wrist images: 2 1. 1.5 cm soft tissue mass within the subcutaneous tissue most consistent with a lipoma. No overlying skin changes noted. Assessment & Plan Assessment & Plan (1) Fatty tumor: Comment: 2009 Fatty tumor removed under right arm pit, right near breast, benign 10/2024 R arm Code(s): D17.9 - Benign lipomatous neoplasm, unspecified Category: Surgical Qualifiers: Lipoma location: upper extremity Laterality: right Qualified Code(s): D17.21 - Benign lipomatous neoplasm of skin and subcutaneous tissue of right arm (2) Folliculitis: Code(s): L73.9 - Follicular disorder, unspecified Category: Medical Plan Patient has requested excision of the right arm lipoma in the right groin infected cyst. I reviewed the procedure, risks, and alternatives in detail and she consents to excision of the right forearm lipoma and right groin cyst. This will be scheduled under local anesthesia (without epinephrine) as a minor surgery. Coding Level of Care Code New Pt Level 4 (33031) Diagnoses Lipoma of right upper extremity D17.21 Lipoma location: upper extremity Laterality: right Folliculitis L73.9
[2024-12-09 14:18] VITALS: BP 140/66; PULSE 85; BMI 24.7
--- OUTSIDE RECORDS SUMMARY | 2024-12-09 15:40 | XMS_ITS | Encounter Summary ---
Author Organization [facility] Address [address] [place] [address] [place] [address] Phone Care Team Providers Care Radio Time Sales Supervisor Name Role Phone Nahomy Ortiz MD Primary Care Provid er Louis Moody MD Unavailable Reason for Referral * Consultation (Within 1 month) - Closed Specialty Diagnoses / Procedures Referred By Josephine herrera Referred To Contact Pulmonary Disease Diagnoses Dyspnea, unspecified type Jessica Osborne NP [address] [address] Phone: tel: Referral ID Status Reason Start Date Expiration Date Visits Re quested Visits Authorized [id number] Closed 12/08/2017 12/08/2018 1 1 Encounter Details Date Type Department Care Team (Latest Contact Info) Description 12/08/2017 Transcribe Orders [facility] [address] [place] [address], [address] Floor, [address] [place] [address] Jessica Osborne NP Dyspnea, unspecified type (Primary [...] Diagnoses Orde r Schedule Ambulatory referral to [facility] Pulmonary Outpatient Referral Routine Dyspnea, Unspecified Type Ordered: 12/08/2017 documented as of this encounter Visit Diagnoses Diagnosis Dyspnea, unspecified type- Primary documented in this encounter Care Teams Radio Time Sales Supervisor Relationship Specialty Start Date End Date Nahomy Ortiz MD [address] [place] [address] PCP - General Internal Medicine 03/21/18 Louis Moody MD [address] [place] [id number] Vascular Surgery 06/04/18 documented as of this encounter Additional Source Comments The information contained in this document represents components of the legal health record. It is not the complete legal health record.[facility]
--- OUTSIDE RECORDS SUMMARY | 2024-12-09 15:40 | XMS_ITS | Clinical Summary ---
Author Organization [facility] ity Address [address] [place] [phone] Care Team Providers Care Lathe Operator Contact Lens Name Role Phone Unavailable Primary Care Provider [...]
--- OUTSIDE RECORDS SUMMARY | 2024-12-09 15:40 | XMS_ITS | Encounter Summary ---
Author Organization [facility] Address [address] [place] [address] Phone Care Team Providers Care Beef Ribber Name Role Phone Nahomy Ortiz MD Primary Care Provid er Louis Moody MD Unavailable [phone] Reason for Referral * Physical Therapy (Routine) - Closed Specialty Diagnoses / Procedures Referred By Josephine herrera Referred To Contact Physical Therapy Diagnoses Encounter for rehabilitation System, Provider Not In, [facility] [id number] [place] [address] Phone: tel: Referral ID Status Reason Start Date Expiration Date Visits Re quested Visits Authorized [id number] Closed 10/15/2018 03/12/2019 99 99 Encounter Details Date Type Department Care Team (Latest Contact Info) Description 10/04/2018 Transcribe Orders [facility] [address] [place] [address] Nahomy Ortiz MD [address] [place] [phone] Encounter for rehabilitation (Primary Dx) Social History [...] Diagnoses Orde r Schedule Ambulatory referral to [facility] Physical Therapy Outpatient Referral Routine Encounter for rehabilitation Ordered: 10/04/2018 documented as of this encounter Visit Diagnoses Diagnosis Encounter for rehabilitation- Primary documented in this encounter Care Teams Beef Ribber Relationship Specialty Start Date End Date Nahomy Ortiz MD [address] [place] [address] PCP - General Internal Medicine 03/21/18 Louis Moody MD [address] [place] [address] Vascular Surgery 06/04/18 documented as of this encounter Additional Source Comments The information contained in this document represents components of the legal health record. It is not the complete legal health record.[facility]
--- OUTSIDE RECORDS SUMMARY | 2024-12-09 15:40 | XMS_ITS | Clinical Summary ---
Author Organization [facility] Address [address] [place] [address] Phone Care Team Providers Care Diabetes Trainer Name Role Phone Nahomy Ortiz MD Primary Care Provid er Louis Moody MD Unavailable Allergies Active Allergy Reactions Criticality Noted Date [...] Activity Notice Jessica Clement was admitted to [facility] in June for surgery and care [...] VACCINE (1 - 1-dose 75+ series) 2023 INFLUENZA VACCINE (#1) 2024 9, 12/08/2017, 02/17/2016, Additional history exists COVID-19 VACCINE (3 - season) 2024 06/07/2020, 05/17/2020 HEPATITIS A VACCINES Aged Out No long [...] file Insurance MEDICARE PART A & B [employer] MEDEX SUPPLEMENT MEDICARE PART A & B [employer] MEDEX SUPPLEMENT MEDICARE PART A & B [employer] MEDEX SUPPLEMENT MEDICARE PART A & B [employer] MEDEX SUPPLEMENT MEDICARE PART A & B Member Subscriber Plan / Payer ( fective 2016-Present) Name:Jessica Clement Member ID:[id number] Relation to Subscriber:Self Name:Jessica Clement Subscriber ID:[id number] Payer ID:[id number] Group ID:Not on file Type:Medicare Address: [address] [facility] [address] [address] [facility] MEDEX SUPPLEMENT MEDICARE PART A & B [employer] MEDEX SUPPLEMENT MEDICARE PART A & B [employer] CROSS MEDEX SUPPLEMENT MEDICARE PART A & B [employer] CROSS MEDEX SUPPLEMENT MEDICARE PART A & B [employer] CROSS MEDEX SUPPLEMENT Advance Directives For more information, please contact: [phone] (9AM - 5PM Janie/[place], Monday-Monday) Documents on File Type Date Recorded Patient Executive Assistant To President Expl anation Healthcare Proxy 06/19/2018 11:57 AM * Full Code (Presumed) (Latest Code Status on File) Date Activated Date Inactivated Comments 06/14/2018 12:44 PM 06/17/2018 4:16 PM Care Teams Diabetes Trainer Relationship Specialty Start Date End Date Nahomy Ortiz MD [address] [place] [address] PCP - General Internal Medicine 03/21/18 Louis Moody MD [address] [place] [address] Vascular Surgery 06/04/18 Additional Source Comments The information contained in this document represents components of the legal health record. It is not the complete legal health record.[facility]
--- OUTSIDE RECORDS SUMMARY | 2024-12-09 15:40 | XMS_ITS | Encounter Summary ---
Author Organization [facility] Address [address] [place] [address] Phone Care Team Providers Care Public Area Attendant Name Role Phone Nahomy Ortiz MD Primary Care Provid er Louis Moody MD Unavailable [phone] Encounter Details Date Type Department Care Team (Late st Contact Info) Description 06/14/2018 Procedure Pass [facility] PERIOPERATIVE DEPT [address] [place] [phone] Social History Tobacco Use Types Packs/Day Years [...] on filedocumented in this encounter Care Teams Public Area Attendant Relationship Specialty Start Date End Date Nahomy Ortiz MD [address] [place] [address] PCP - General Internal Medicine 03/21/18 Louis Moody MD [address] [place] [address] Vascular Surgery 06/04/18 documented as of this encounter Additional Source Comments The information contained in this document represents components of the legal health record. It is not the complete legal health record.[facility]
== END 2024-12-09 14:18 | disposition home or self-care (01) ==
LOC: HO.HGS 13:55
PROVIDERS: PCP Internal Medicine; Visit Provider Surgery
DX: D17.21 Benign lipomatous neoplasm of skin and subcutaneous tissue of right arm (principal); L73.9 Follicular disorder, unspecified
CPT/HCPCS: 99204

== ENCOUNTER → 2024-12-09 13:54 | Outpatient (BNVA) | payer MEDICARE, SELFPAY | PROVIDERS: PCP Internal Medicine; Visit Provider Surgery | DX: D17.21 Benign lipomatous neoplasm of skin and subcutaneous tissue of right arm (principal); L73.9 Follicular disorder, unspecified | CPT/HCPCS: 99202 ==

== ENCOUNTER 2025-01-06 13:41 | Outpatient (REF) | payer MEDICARE, SELFPAY ==
--- OUTSIDE RECORDS SUMMARY | 2019-10-30 | XMS_ITS | Encounter Summary ---
Author Organization [facility] Address [address] [place] [address] Phone Care Team Providers Care Ward Service Supervisor Name Role Phone Nahomy Ortiz MD Primary Care Provid er Louis Moody MD Unavailable Encounter Details Date Type Department Care Team (Late st Contact Info) Description 10/30/2019 Hospital Encounter [facility] [address] [place] [phone] Rasheed Moody MD [address] [place] [address] [email or web address] Social History Tobacco Use Types Packs/Day Years [...] on filedocumented in this encounter Care Teams Ward Service Supervisor Relationship Specialty Start Date End Date Nahomy Ortiz MD 5 [place] [address] PCP - General Internal Medicine 03/21/18 Louis Moody MD [address] [place] [address] Vascular Surgery 06/04/18 documented as of this encounter Additional Source Comments The information contained in this document represents components of the legal health record. It is not the complete legal health record.[facility]
--- OUTSIDE RECORDS SUMMARY | 2020-09-04 | XMS_ITS | Encounter Summary ---
Author Organization [facility] Address [address] [place] [phone] Phone Care Team Providers Care Near East Archeology Professor Name Role Phone Nahomy Ortiz MD Primary Care Provid er Louis Moody MD Unavailable Encounter Details Date Type Department Care Team (Late st Contact Info) Description 09/04/2020 Hospital Encounter [facility] [address] [place] [phone] Rasheed Moody MD [address] [place] [address] [email or web address] Social History Tobacco Use Types Packs/Day [...] Name Priority Date/Time Associated Diagnosis Comments MRI FACE OUTSIDE (NO INTERPRETATION) Routine 09/04/2020 12:00 AM EDT documented in this encounter Results * MRI Face Outside (No Interpretation) (09/04/2020 12:00 AM EDT) Narrative [facility] - 12/21/2020 9:32 AM EDT This study is for PACS storage only and not for interpretation. us Rasheed Moody MD IMG OUTSIDE IMAGING W/OUT INT ERPRETATION Final Result [facility] documented in this encounter Visit Diagnoses Not on filedocumented in this encounter Care Teams Near East Archeology Professor Relationship Specialty Start Date End Date Nahomy Ortiz MD [address] [place] [address] PCP - General Internal Medicine 03/21/18 Louis Moody MD [address] [place] [address] Vascular Surgery 06/04/18 documented as of this encounter Additional Source Comments The information contained in this document represents components of the legal health record. It is not the complete legal health record.[facility]
--- OUTSIDE RECORDS SUMMARY | 2020-09-04 00:05 | XMS_ITS | Encounter Summary ---
Author Organization [facility] Address [address] [place] [phone] Phone Care Team Providers Care Adhesive Bandage Making Operator Name Role Phone Nahomy Ortiz MD Primary Care Provid er Louis Moody MD Unavailable Encounter Details Date Type Department Care Team (Late st Contact Info) Description 09/04/2020 12:05 AM EDT Hospital Encounter [facility] [address] [place] [phone] Rasheed Moody MD [address] [place] [address] [email or web address] .[facility] Social History Tobacco Use Types Packs/Day [...] on filedocumented in this encounter Care Teams Adhesive Bandage Making Operator Relationship Specialty Start Date End Date Nahomy Ortiz MD [address] [place] [phone] PCP - General Internal Medicine 03/21/18 Louis Moody MD [address] [place] [phone] Vascular Surgery 06/04/18 documented as of this encounter Additional Source Comments The information contained in this document represents components of the legal health record. It is not the complete legal health record.[facility]
[2025-01-06 13:49] VITALS: BP 167/72; PULSE 78; RESP 12; TEMP 36.5; O2SAT 99; BMI 24.7
--- NOTE | 2025-01-06 14:32 | W.PM.OPN ---
Operative Note Operative Note Date of Service: 01/06/25 Narrative: Preoperative diagnosis: Lipoma right forearm, epidermal cyst right pubis x2 Postoperative diagnosis: Same Procedure: Excision lipoma right forearm and epidermal cyst right pubis x2 Surgeon: Stas Perez MD Medical Care Manager: None Anesthesia: Lidocaine 1% plain Indications for procedure: 74-year-old female patient presenting with a soft tissue mass in the right forearm which is increased in size and causing some mild discomfort. In addition the patient has 2 painful cyst located in the right pubis, all of which she wishes to have excised. Operative findings: Lipoma 2 cm diameter right forearm, epidermal inclusion cyst x2 each measuring 1 cm. Specimen: Lipoma right forearm, epidermal inclusion cyst x2 right pubis Estimated blood loss: 3 mL Complications: None Procedure details: Patient was brought to the minor surgery suite and placed in a supine position. The patient confirmed the location of the lipoma in the right forearm and the to epidermal cyst in the right pubis. After assuring informed consent the skin was prepped with Betadine and draped in a sterile fashion over both areas. Beginning in the forearm, local anesthesia was infiltrated over the palpable lipoma. A 2 cm incision was then made with a scalpel and carried out through subcutaneous tissue up to the lipoma. Blunt dissection was then used to dissect the lipoma from the surrounding subcutaneous tissue. Hemostasis was assured using light pressure. Epidermis was then reapproximated using interrupted 4-0 Polysorb sutures. 2 x 2 gauze and Tegaderm were then applied. Attention was then directed to the right pubis were 2 adjacent cysts were identified. Local was infiltrated behind both lesions. An elliptical incision was then made with a 15 blade and carried out through subcutaneous tissue in the upper lesion. The lesion was completely excised and sent to pathology for further examination. The 2nd lesion was also excised using an elliptical incision. Both lesions were passed off the table and sent to pathology for further examination. Skin was then closed using interrupted 3-0 Prolene sutures. A sterile dressing consisting of 2 x 2 gauze and paper tape was then applied. The patient tolerated the procedure well. She was discharged to home in stable condition.
--- OUTSIDE RECORDS SUMMARY | 2025-01-06 17:20 | XMS_ITS | Patient Health Record ---
Author Organization [facility] Address [address] [place] [address] Care Team Providers Care Nursery School Teacher Name Role Phone Erinn(inactive) Bay MERRITT Primary Care Provider U Jez Nj Jr Unavailable Allergies Allergen (clinical drug ingredient) Drug/Non Drug Allergy documented on EMR Reaction Allergy Type Onset Date Status Penicillin Unknown Drug Allergy Active tetracycline Tetracycline HCl Unknown Drug Allergy Active Septra DS Unknown Drug Allergy Active Motrin Unknown Drug Allergy Active novacaine Unknown Drug Allergy Active Reason For Referral No Information Medications Medication SIG (Take, Route, Frequency, Duration) Notes Start Date End Date Status MoviPrep 100 GM as directed Orally 08/17/2012 Active Colyte with Flavor Packs 240 GM as directed Orally as directed; Duration: 1 dose 12/20/2012 Active Restasis 0.05% Activ e Synthroid .088mg 03/13/2024 03/13/2024 A ctive Ipratropium [place] 0.06% Active Problems Problem Type SNOMED Code ICD Code Onset Dates Problem Status W/U Status Risk Notes Problem Constipation (30181715) Constipation (564.00) Active confirmed Problem Colon cancer screening (988856223) Colon cancer screening (V76.51) Active confirmed Plan Of Treatment Future Test Test Name Order Date COLONOSCOPY 08/17/2012 Insurance Providers Payer Name Payer Address Payer Phone Subscriber Number Group Number Insured Name Patient Relationship to Insured Coverage Start Date Coverage End Date [facility] [address] [place] [address] [phone] [id number] JEWEL MANDUJANO Self - patient is the insured Medical (General) History Medical History History ICD Code hypothyroidism xerophthalmia Surgical History Surgery Date(Month/Year) hysterectomy 1972 breast biopsy 1984 disc surgery 1986
--- OUTSIDE RECORDS SUMMARY | 2025-01-06 17:20 | XMS_ITS | Clinical Summary ---
Author Organization [facility] ity Address [address] [place] [phone] Care Team Providers Care Collator Hand Name Role Phone Unavailable Primary Care Provider [...]
--- OUTSIDE RECORDS SUMMARY | 2025-01-06 17:20 | XMS_ITS | Encounter Summary ---
Author Organization [facility] Address [address] [place] [address] Phone Care Team Providers Care Clinical Lab Clerk Name Role Phone Nahomy Ortiz MD Primary Care Provid er Louis Moody MD Unavailable Reason for Referral * Physical Therapy (Routine) - Closed Specialty Diagnoses / Procedures Referred By Josephine herrera Referred To Contact Physical Therapy Diagnoses Encounter for rehabilitation System, Provider Not In, [facility] [phone] [place] [address] Phone: tel: Referral ID Status Reason Start Date Expiration Date Visits Re quested Visits Authorized [id number] Closed 10/15/2018 03/12/2019 99 99 Encounter Details Date Type Department Care Team (Latest Contact Info) Description 10/04/2018 Transcribe Orders [facility] [address] [place] [phone] Nahomy Ortiz MD [address] [place] [phone] Encounter for rehabilitation (Primary Dx) Social History [...] Diagnoses Orde r Schedule Ambulatory referral to [facility] Physical Therapy Outpatient Referral Routine Encounter for rehabilitation Ordered: 10/04/2018 documented as of this encounter Visit Diagnoses Diagnosis Encounter for rehabilitation- Primary documented in this encounter Care Teams Clinical Lab Clerk Relationship Specialty Start Date End Date Nahomy Ortiz MD [address] [place] [address] PCP - General Internal Medicine 03/21/18 Louis Moody MD [address] [place] [address] Vascular Surgery 06/04/18 documented as of this encounter Additional Source Comments The information contained in this document represents components of the legal health record. It is not the complete legal health record.[facility]
--- OUTSIDE RECORDS SUMMARY | 2025-01-06 17:20 | XMS_ITS | Encounter Summary ---
Author Organization [facility] Address [address] [place] [phone] Phone Care Team Providers Care Business Banking Sales Assistant Name Role Phone Nahomy Ortiz MD Primary Care Provid er Louis Moody MD Unavailable Encounter Details Date Type Department Care Team (Late st Contact Info) Description 06/14/2018 Procedure Pass [facility] PERIOPERATIVE DEPT [address] [place] [phone] Social History Tobacco Use Types Packs/Day Years [...] on filedocumented in this encounter Care Teams Business Banking Sales Assistant Relationship Specialty Start Date End Date Nahomy Ortiz MD [address] [place] [address] PCP - General Internal Medicine 03/21/18 Louis Moody MD [address] [place] [id number] Vascular Surgery 06/04/18 documented as of this encounter Additional Source Comments The information contained in this document represents components of the legal health record. It is not the complete legal health record.[facility]
--- OUTSIDE RECORDS SUMMARY | 2025-01-06 17:20 | XMS_ITS | Encounter Summary ---
Author Organization [facility] Address [address] [place] [address] [place] [address] Phone Care Team Providers Care Resistor Tester Name Role Phone Nahomy Ortiz MD Primary Care Provid er Louis Moody MD Unavailable Reason for Referral * Consultation (Within 1 month) - Closed Specialty Diagnoses / Procedures Referred By Josephine herrera Referred To Contact Pulmonary Disease Diagnoses Dyspnea, unspecified type Jessica Osborne NP [address] [address] Phone: tel: Referral ID Status Reason Start Date Expiration Date Visits Re quested Visits Authorized [id number] Closed 12/08/2017 12/08/2018 1 1 Encounter Details Date Type Department Care Team (Latest Contact Info) Description 12/08/2017 Transcribe Orders [facility] [address] [place] [address], [address] Floor, [address] [place] [address] Jessica Osborne NP Dyspnea, unspecified type (Primary [...] Diagnoses Orde r Schedule Ambulatory referral to [facility] Pulmonary Outpatient Referral Routine Dyspnea, Unspecified Type Ordered: 12/08/2017 documented as of this encounter Visit Diagnoses Diagnosis Dyspnea, unspecified type- Primary documented in this encounter Care Teams Resistor Tester Relationship Specialty Start Date End Date Nahomy Ortiz MD [address] [place] [address] PCP - General Internal Medicine 03/21/18 Louis Moody MD [address] [place] [address] Vascular Surgery 06/04/18 documented as of this encounter Additional Source Comments The information contained in this document represents components of the legal health record. It is not the complete legal health record.[facility]
--- OUTSIDE RECORDS SUMMARY | 2025-01-06 17:21 | XMS_ITS | Clinical Summary ---
Author Organization [facility] Address [address] [place] [address] Phone Care Team Providers Care Folder Machine Name Role Phone Nahomy Ortiz MD Primary [...] Activity Notice Jessica Clement was admitted to [facility] in June for surgery and care [...] file Insurance MEDICARE PART A & B [employer] MEDEX SUPPLEMENT MEDICARE PART A & B [employer] MEDEX SUPPLEMENT MEDICARE PART A & B [employer] MEDEX SUPPLEMENT MEDICARE PART A & B [employer] MEDEX SUPPLEMENT MEDICARE PART A & B Member Subscriber Plan / Payer ( fective 2016-Present) Name:Jessica Clement Member ID:[id number] Relation to Subscriber:Self Name:Jessica Clement Subscriber ID:[id number] Payer ID:[id number] Group ID:Not on file Type:Medicare Address: [employer] [facility] [address] [address] [facility] MEDEX SUPPLEMENT MEDICARE PART A & B [employer] MEDEX SUPPLEMENT MEDICARE PART A & B [employer] MEDEX SUPPLEMENT MEDICARE PART A & B [employer] MEDEX SUPPLEMENT MEDICARE PART A & B [employer] MEDEX SUPPLEMENT Advance Directives For more information, please contact: [phone] (9AM - 5PM Janie/[place], Monday-Monday) Documents on File Type Date Recorded Patient Director Of First Impressions Expl anation Healthcare Proxy 06/19/2018 11:57 AM * Full Code (Presumed) (Latest Code Status on File) Date Activated Date Inactivated Comments 06/14/2018 12:44 PM 06/17/2018 4:16 PM Care Teams Folder Machine Relationship Specialty Start Date End Date Nahomy Ortiz MD [address] [place] [address] PCP - General Internal Medicine 03/21/18 Louis Moody MD [address] [place] [phone] Vascular Surgery 06/04/18 Additional Source Comments The information contained in this document represents components of the legal health record. It is not the complete legal health record.[facility]
== END 2025-01-06 13:42 | disposition home or self-care (01) ==
LOC: HO.MS 13:41
PROVIDERS: PCP Internal Medicine; Visit Provider Surgery
PROC: (CPT 27047; principal; 2025-01-06 14:00)
DX: D17.21 Benign lipomatous neoplasm of skin and subcutaneous tissue of right arm (principal); L73.9 Follicular disorder, unspecified; L72.0 Epidermal cyst
CPT/HCPCS: 27047; 25075; 88304; J2003; J2004

== ENCOUNTER → 2025-01-06 13:41 | Outpatient (BNV) | payer MEDICARE, SELFPAY | PROVIDERS: PCP Internal Medicine; Visit Provider Surgery | DX: D17.21 Benign lipomatous neoplasm of skin and subcutaneous tissue of right arm (principal); L72.8 Other follicular cysts of the skin and subcutaneous tissue | CPT/HCPCS: 11402; 11422 ==

== ENCOUNTER 2025-01-13 12:19 | Outpatient (AMB) | payer MEDICARE, SELFPAY ==
--- NOTE | 2025-01-13 12:21 | A.OFFVIS_ITS ---
Vital Signs 01/13/25 12:27 Height 5 ft 6 in Weight 156 lb BMI 25.2 BP 131/60 Blood Pressure Location Rt brachial Position Sitting Pulse 97 Intake Visit Reasons: s/p Rt forearm/ rt groin Intake Note: Patient here s/p WLE X2. A. Rt forearm, B. Rt groin. Patient c/o: groin site irritated, rubs w/underwear, tender to touch. Reports incision on rt forearm healing well. 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 Accompanied by: Self / Same As Patient Allergies ibuprofen (From Motrin) Allergy (Intermediate, Verified 01/13/25 12:27) Hives adhesive (ADHESIVE BANDAGE) Allergy (Unknown, Verified 01/13/25 12:27) RASH,ERYTHEMA,BRUISING cephalexin (Keflex) Allergy (Unknown, Verified 01/13/25 12:27) Rash denosumab (From PROLIA) Allergy (Unknown, Verified 01/13/25 12:27) SEVERE MUSCLE PAIN epinephrine (EPINEPHRINE) Allergy (Unknown, Verified 01/13/25 12:27) POUNDING HEART/FEELS LIKE PASSING OUT Penicillins (PENICILLINS) Allergy (Unknown, Verified 01/13/25 12:27) RASH procaine (From Novocain) Allergy (Unknown, Verified 01/13/25 12:27) Heart racing sulfamethoxazole (From SEPTRA DS) Allergy (Unknown, Verified 01/13/25 12:27) RASH tetracycline (TETRACYCLINE) Allergy (Unknown, Verified 01/13/25 12:27) DIFFICULTY SWALLOWING, trouble swallowing, trouble swallowing trimethoprim (From SEPTRA DS) Allergy (Unknown, Verified 01/13/25 12:27) RASH hydrochlorothiazide Adverse Reaction (Intermediate, Verified 01/13/25 12:27) Headache lisinopril Adverse Reaction (Intermediate, Verified 01/13/25 12:27) Cough HPI HPI s/p Rt forearm/ rt groin: Details: Overall doing well. Denies pain. The lateral of the groin incisions is causing her some issues because of irritation from clothes pulling on the sutures. She denies any fevers at home. Denies any drainage from incision sites. She has no concerns with the right forearm excision site. [facility] Medical History (Updated 12/09/24 @ 14:25 by Stas Perez MD) Lymphedema Palpitations H/O one miscarriage Collapsed lung Paralysis, diaphragm Ascending aortic aneurysm Sarcoidosis of lung Ermias's disease terminal press operator systemic steroid user Osteoporosis Polymyalgia rheumatica Hypothyroidism Rhinitis Surgical History (Updated 01/13/25 @ 13:00 by David Praasd PA-C) Hx of surgical procedure (01/06/25) S/P plication of diaphragm Hx of thyroidectomy History of bronchoscopy Status post spinal disc removal H/O: hysterectomy H/O dilation and curettage Fatty tumor History of open reduction and internal fixation (ORIF) procedure History of neck surgery H/O breast surgery History of total abdominal hysterectomy Family History Father Emphysema lung Mother Aneurysm Emphysema lung Sister Chronic mental illness Celiac disease Breast cancer Family/Other Chronic mental illness Dementia Sister Pancreatic cancer Social History Housing: House Alcohol intake: current Comment: glass of wine holidays Patient Tobacco Use Status: Never used Tobacco Tobacco use type: Cigarette Years Smoked: high school 4 years e-Cigarette/Vaping Use: Never Used Second Hand Smoke Exposure: No Advance Directives Date on File: 09/10/22 service: No Current occupational status: retired Cognitive needs: No Hearing needs: No Vision needs: Yes Physical Exam Vital Signs: Last Vital Signs Pulse 97 01/13/25 12:27 BP 131/60 01/13/25 12:27 BMI result Body Mass Index 25.2 Const General: comfortable and no acute distress Orientation/consciousness: patient oriented x3 Resp Effort & Inspection: normal respiratory effort and able to speak in complete sentences GI Other: Right groin excision sites. Appear well healed, [address] on each. No fluctuance, nontender. No drainage, no surrounding erythema. Neuro General: patient oriented x3 Extrem Other: Right forearm excision site, well healed, no surrounding erythema, nontender, no fluctuance. No sutures Assessment & Plan Assessment & Plan (1) Status post excision of lipoma: Comment: Right forearm 01/06/2025 Dr. Perez Code(s): Z98.890 - Other specified postprocedural states; Z86.018 - Personal history of other benign neoplasm Category: Medical (2) Hx of surgical procedure: Onset Date: 01/06/25 Comment: JOHN X2. A. Rt forearm B. Rt groin Stas Alas Code(s): Z98.890 - Other specified postprocedural states Category: Medical Plan 74-year-old female s/p excision of cysts of the right forearm and 2 cysts in the right groin on 01/06/[address] Perez returning to the office for follow up and suture removal. Overall patient doing well, some discomfort in the right groin secondary to her clothes pulling on the sutures. Otherwise has no concerns. Denies fevers, denies any drainage aside from some bleeding on the 1st day postop. On exam the right forearm appears to be healing well, no sutures in place. Right groin excision sites appear to be healing well, 2 sutures in each site, removed in office without complication. The sites appear well healed, there was no fluctuance, no surrounding erythema, no discharge. We discussed pathology report, results as follows , right forearm: Angiolipoma, right groin: Skin with fibrosis, inflammation, follicular plugging, focal histologic reaction to hair shaft, and edge of plugged dilated follicle/epidermal inclusion, suggest hidradenitis, clinical correlation necessary. Recommended avoiding shaving of the area, which is patient is already doing. Additionally recommended keeping this area clean and dry as best as possible. Likely no longer needing follow-up, can follow up as needed for future concerns. Coding Level of Care Code Est Pt Level 3 (44965) Diagnoses Status post excision of lipoma Z98.890; Z86.018 Hx of surgical procedure Z98.890
[2025-01-13 12:27] VITALS: BP 131/60; PULSE 97; BMI 25.2
== END 2025-01-13 12:38 | disposition home or self-care (01) ==
LOC: HO.HGS 12:20
DX: Z98.890 Other specified postprocedural states (principal); Z86.018 Personal history of other benign neoplasm
CPT/HCPCS: 99213

== ENCOUNTER → 2025-01-13 12:19 | Outpatient (BNVA) | payer MEDICARE, SELFPAY | DX: D17.9 Benign lipomatous neoplasm, unspecified (principal); L72.3 Sebaceous cyst; Z98.890 Other specified postprocedural states; Z48.02 Encounter for removal of sutures; Z48.89 Encounter for other specified surgical aftercare; Z86.018 Personal history of other benign neoplasm | CPT/HCPCS: 99212 ==

== ENCOUNTER 2025-02-21 08:14 | Outpatient (REF) | payer MEDICARE, SELFPAY ==
[2025-02-21 08:27] LABS: MANUAL DIFF FLAG NO
[2025-02-21 08:59] LABS: Hematocrit 37.2 % (37.0-47.0); Hemoglobin 12.2 g/dl (12.0-16.0); Imm Gran Abs Auto 0.02 X10*3/uL (0.00-0.03); Imm Gran Pct Auto 0.3 % (0.0-0.4); Lymphocytes Absolute Auto 2.7 X10*3/uL (1.2-4.9); Mean Corpuscular HGB Conc 32.8 g/dl (31.0-35.0); Mean Corpuscular Hemoglobin 27.2 pg (27.0-33.0); Mean Corpuscular Volume 82.9 fL (80.0-98.0); NRBC Abs Auto 0.000 X10*3/uL (0.0-0.012); NRBC Pct Auto 0.0 /100WBC (0.0-0.2); Platelet Count 311 X10*3/uL (160-400); Red Blood Count 4.49 X10*6/uL (4.20-5.50); White Blood Count 7.1 X10*3/uL (4.8-10.8)
[2025-02-21 09:51] LABS: Alanine Aminotransferase 16 U/L (0-31); Albumin Level 4.5 g/dL (3.5-5.0); Alkaline Phosphatase 129 U/L (39-117); Anion Gap 10 (12-20); Aspartate Amino Transferase 21 U/L (5-31); Blood Urea Nitrogen 12 mg/dL (9-16); Calcium 9.0 mg/dL (8.4-10.2); Carbon Dioxide 28 mmol/L (22-29); Chloride 103 mmol/L (96-108); Cholesterol 225 mg/dL (<200); Estimated Glomerular Filt Rate > 60; HDL Cholesterol 80 mg/dL (>40); Magnesium 2.3 mg/dL (1.6-2.6); Potassium 4.0 mmol/L (3.3-5.1); Sodium 137 mmol/L (135-145); Total Protein 7.5 g/dL (6.5-8.0); Triglycerides 123 mg/dL (<150)
[2025-02-21 10:07] LABS: Folate 10.4 ng/mL (> or = 4.0); Vitamin B12 300 pg/mL (200-900)
[2025-02-21 10:10] LABS: Free T4 (Free Thyroxine) 1.26 ng/dL (0.71-1.85); Thyroid Stimulating Hormone 3.50 uIU/mL (0.32-4.0)
== END 2025-02-21 08:15 | disposition home or self-care (01) ==
LOC: HO.LAB 08:14
PROVIDERS: PCP Internal Medicine; Visit Provider Internal Medicine
DX: I10 Essential (primary) hypertension (principal); E78.00 Pure hypercholesterolemia, unspecified; Z13.21 Encounter for screening for nutritional disorder
CPT/HCPCS: 36415; 80053; 80061; 82306; 82607; 82746; 83735; 84439; 84443; 85025